=== PATIENT | male | born 1980 | race Caucasian/White ===

== ENCOUNTER → 2017-02-23 | Outpatient (CLI) | payer OTHER ==
[~2017-02-23] MED LIST: ACET-1311 PO; BENZ10GE38 TOP; IBUP-1050 PO
[2017-02-23 17:43] LABS: BASO % 1.2 %; BASO ABS # 0.06 K/uL (0-0.2); COMPLETE YES; EOS % 0.8 %; HEMATOCRIT 37.6 % (42-52); IG% 0.2 %; LYMPH % 32.4 %; LYMPH ABS # 1.59 K/uL (1.2-3.4); MEAN CELL VOLUME 96.2 fL (80-100); MEAN CORPUSCULAR HGB CONC 34.3 g/dl (32-36); MEAN PLATELET VOLUME 10.2 fL (7.4-10.4); NEUT % 56.4 %; PLATELET COUNT 178 K/uL (130-400); RED BLOOD COUNT 3.91 M/uL (4.7-6.1)
== END | disposition home or self-care (01) ==
LOC: C.LABBFT 13:42
PROVIDERS: ATTEND Physician Assistant Medical
DX: D64.9 Anemia, unspecified (principal)

== ENCOUNTER 2017-03-02 13:54 | Emergency (ER) | payer OTHER ==
[~2017-03-02] VITALS: Ht 182.9 cm; Wt 81.0 kg
[2017-03-02 14:06] VITALS: TEMP 36.9; Ht 182.9 cm; Wt 81.0 kg
--- NOTE | 2017-03-02 14:48 | DIAGNOSTIC IMAGING REPORT ---
L KNEE 3 VIEWS CLINICAL HISTORY: Left knee pain. COMPARISON: Left knee radiographs June 24, 2011. FINDINGS: Alignment of the left knee is anatomic. There is no fracture or joint effusion. No osseous lesion is present. Joint spaces are preserved. IMPRESSION: No acute fracture or joint effusion of the left knee. Electronically signed by: Neeraj Murray M.D. 03/02/2017 2:47 PM Dictated Date/Time: 03/02/2017 2:46 PM
--- NOTE | 2017-03-02 15:07 | EMERGENCY ROOM VISIT NOTE ---
ED Visit Note First contact with patient: 14:09 Chief Complaint: Left Knee Injury History of Present Illness: This patient is a 36-year-old male who presents to the Emergency Department, ambulatory, for evaluation of their left Knee Injury. Patient states that he was walking upstairs approximately 5 days ago, when he kicked his leg outward, and believes he may have hyperextended his knee. The patient states he immediately began experiencing pain and difficulty with ambulation. He does have a history of a torn meniscus of the right knee, and states the pain he is experiencing now is similar to that. They report sharp, intermittent pain which she describes as "excruciating" and hot, worse with ambulation. He describes the pain as "under the kneecap", and states it is throughout the entire knee, worse on the lateral and medial aspects. The patient states with movement, he notices some popping and snapping in the joint. The joint has not locked. The patient is able to fully extend and flex the knee, but states when he attempts to stand from a squatting position, it is more difficult now than normal. The patient has intermittently been taking Tylenol for pain, but has not been taking any NSAIDs. They deny any numbness or tingling into the distal extremity including the toes. They deny any pain extending into the affected foot or leg. Patient reports no previous fractures or surgeries of the affected knee. Patient rates his current discomfort as a 9/ 10. Patient denies any associated ligament instability, swelling, redness, or other discoloration, or laceration or bleeding. ROS: A complete 10 point review of systems was reviewed with the patient with pertinent positives and negatives as per history of present illness. All else were negative. Medications: None Allergies: None PMH: None SHx: The patient lives locally with family. 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 Physical Exam: Vital Signs: Reviewed Nurse's notes, vital signs stable. GENERAL: This is a 36- year-old white male, no acute distress, but appears in pain, well-developed, well-nourished. MENTAL STATUS: Alert, oriented to person place and time, and cooperative. MUSCULOSKELETAL: The left knee is not swollen. There is no ecchymosis. There is no joint effusion present. The patient is tender in the anterior and medial aspects of the knee on palpation. There is no joint line tenderness. The patella does appropriately subluxate. Range of motion is full. Strength of the quads and hamstrings is 5/5. Renetta's is negative. Stephan's and Anterior Drawer tests are negative. There is no laxity with varus and valgus stressing. The foot and toes are warm and well-perfused. Dorsalis pedis pulse 2+. Sensation to pain and light touch is intact. Capillary refill less than 2 seconds. IMAGING: L KNEE 3 VIEWS CLINICAL HISTORY: Left knee pain. COMPARISON: Left knee radiographs June 24, 2011. FINDINGS: Alignment of the left knee is anatomic. There is no fracture or joint effusion. No osseous lesion is present. Joint spaces are preserved. IMPRESSION: No acute fracture or joint effusion of the left knee. Electronically signed by: Neeraj Murray M.D. 03/02/2017 2:47 PM Dictated Date/Time: 03/02/2017 2:46 PM ED Course: Patient was seen and evaluated by myself. X-rays were obtained of the affected knee. Imaging results as above. Images were discussed and reviewed with the patient who acknowledges understanding. Patient was provided a knee immobilizer and Crutches for their comfort. Patient was given instructions for OTC pain control at home. Patient educated on worrisome symptoms for return visit to the emergency department. Patient is to follow-up with his orthopedic surgeon for his complaint for further evaluation at their convenience. Patient discharged to home in good condition. Blood Pressure Screening: Patient was found to have a slightly elevated blood pressure due to circumstances. I do not believe that the patient requires hypertension monitoring. I attest that I have personally reviewed the patient's current medication list. DIFFERENTIAL DIAGNOSIS: Sprain, strain, contusion, fracture, meniscus injury, tendon tear, malignancy, and others Impression: Left Knee sprain Current/Historical Medications No Active Prescriptions or Reported Meds Allergies Coded Allergies: BEE STING (Verified Allergy, Unknown, n/v,dizziness, 03/02/17) Vital Signs Date Time Temp Pulse Resp B/P (MAP) Pulse Ox O2 Delivery O2 Flow Rate FiO2 03/02/17 15:12 81 16 138/86 98 03/02/17 14:06 36.9 75 18 148/101 96 Departure Information Impression Primary Impression: Sprain of knee Dispostion Home / Self-Care Condition GOOD Prescriptions No Active Prescriptions or Reported Meds Referrals No Doctor, Assigned (PCP) [facility] Patient Instructions ED Immobilizer Knee, Amarilys [facility] Additional Instructions You have been treated in the Emergency Department for Knee Pain. For pain control, you can use the following [id number] medicines (if >12 yo): Ibuprofen(Motrin, Advil) may be used for fever or pain. Use 600mg every six hours as needed. Take with food. Avoid using more than 2400mg in a 24 hour period. Do not use 2400mg per day for more than three consecutive days without physician direction. Prolonged inappropriate use can lead to stomach upset or ulcers. (AND/OR) Acetaminophen(Tylenol) may be used for fever or pain. Use 1000mg every six hours as needed. Avoid using more than 3000mg in a 24 hour period. *You can alternate these medications every 3-4 hours as needed for increased pain relief. If this is a recent injury (<24 hrs), ice can be applied to the area of pain for the first 3 days to help decrease pain and inflammation. Ice massages can be performed by freezing water in a paper cup, peeling back the cup to expose the ice and then massaging over the affected area. You have been provided the number for an Orthopaedic Surgeon. You should call this number as soon as possible to establish a follow-up visit from today's Emergency Department visit. Keep the knee brace in place until cleared by Orthopedics. Use the crutches you have been provided to keep ALL weight off of the knee until weight bearing is tolerable. Return to the Emergency Department if your current symptoms worsen despite treatment course outlined above. Problem Qualifiers Primary Impression: Sprain of knee Encounter type: initial encounter Involved ligament of knee: unspecified ligament Laterality: left Qualified Codes: S83.92XA - Sprain of unspecified site of left knee, initial encounter
[2017-03-02 15:12] VITALS: BP 138/86; PULSE 81; O2SAT 98
== END 2017-03-02 15:14 | disposition home or self-care (01) ==
LOC: C.EDB 13:56 → C.EDD 15:14
DX: S83.92XA Sprain of unspecified site of left knee, initial encounter (principal); X58.XXXA Exposure to other specified factors, initial encounter

== ENCOUNTER 2019-10-26 15:04 | Inpatient (IN) ==
[2019-10-26] MEDS ORDERED: MAGNESIUM SULFATE / D5W 1 GM/100 ML BAG IV STA (15:40)
--- NOTE | 2019-10-26 15:58 | XRay Report ---
SINGLE VIEW CHEST CLINICAL HISTORY: Atypical chest pain. FINDINGS: 2 AP, portable, upright chest radiographs are compared to study dated 06/10/2006. Correlatio n is made with abdominal CT dated 01/29/2014. The examination is degraded by portable technique and p atient rotation. The heart appears enlarged. The pulmonary vasculature is noncongested. There is mild bibasilar scarring/atelectasis. No airspace consolidation or large pleural effusion is identified. N o pneumothorax is seen. The bony thorax is grossly intact. IMPRESSION: 1. The heart appears enlarged, and this represents a change from prior examinations. This is nonspeci fic and could be seen in the setting of pericardial effusion. This could be further assessed with ech ocardiography if clinically warranted. 2. No airspace consolidation or large pleural effusion is identified. ACT 112: Negative or not required by law. Electronically signed by: Danilo Morel M.D. 10/26/2019 3:57 PM
[2019-10-26 15:59] LABS: Basophils # (auto) 0.06 K/uL (0-0.2); Basophils % (auto) 0.9 %; Eosinophils # (auto) 0.05 K/uL (0-0.5); Eosinophils % (auto) 0.7 %; Hematocrit (blood only) 42.4 % (42-52); Hemoglobin 14.4 g/dL (14.0-18.0); Immature Granulocytes # (auto) 0.01 K/uL (0.00-0.02); Immature Granulocytes % (auto) 0.1 %; Lymphocytes # (auto) 1.26 K/uL (1.2-3.4); Lymphocytes % (auto) 18.2 %; Mean Corpuscular Hemoglobin 33.3 pg (25-34); Mean Corpuscular Volume 97.9 fL (80-100); Monocytes # (auto) 0.44 K/uL (0.11-0.59); Monocytes % (auto) 6.4 %; Neutrophils % (auto) 73.7 %; Platelet Count 174 K/uL (130-400); RDW Coefficient of Variation 13.3 % (11.5-14.5); Red Blood Count 4.33 M/uL (4.7-6.1); White Blood Count 6.92 K/uL (4.8-10.8)
[2019-10-26 16:12] LABS: INR 1.1 (0.9-1.1); Partial Thromboplastin Ratio 0.9; Partial Thromboplastin Time 26.5 Seconds (21.0-31.0); Prothrombin Time 11.7 Seconds (9.0-12.0)
[2019-10-26 16:16] LABS: BUN Creatinine Ratio 9.3 (10-20); Calcium 9.5 mg/dl (8.5-10.1); Creatinine Clr Calc Pharmacy 107.3 ml/min; Est GFR (African American) 93.7; Est GFR (Non-African American) 80.9; Potassium 3.7 mmol/L (3.5-5.1)
[2019-10-26 16:22] LABS: Albumin Globulin Ratio 1.2 (0.9-2); Creatine Kinase MB 1.8 ng/ml (0.5-3.6); Globulin 3.5 gm/dl (2.5-4.0); Total Protein 7.5 gm/dl (6.4-8.2); Troponin I 0.02 ng/ml (0-0.045)
[2019-10-26] MEDS ORDERED: LORazepam 1 MG/2 ML VIAL IV STA (16:24)
[2019-10-26] MEDS ORDERED: cloNIDine HCL 0.3 MG/24 HR TRANSDERM SYS TD STA (16:24)
[2019-10-26] MEDS ORDERED: MULTI-VITAMIN INFUSION 10 ML, THIAMINE HCL 100 MG, FOLIC ACID 1 MG in SODIUM CHLORIDE 0... IV ONE (16:24)
[2019-10-26] MEDS ORDERED: FUROSEMIDE 40 MG/4 ML VIAL IV STA (16:55)
[2019-10-26 17:52] LABS: Lyme Ab IgM w/WB Rflx Negative (Negative)
[2019-10-26 17:53] LABS: Lyme Ab IgG w/WB Rflx Negative (Negative)
--- NOTE | 2019-10-26 18:09 | History & Physical Report ---
Date of Service October 26, 2019 Assessment & Plan (1) Dilated cardiomyopathy: Pk Espitia is a 38 year old man with a past medical history of tobacco abuse and alcoholism who presents today with a new diagnosis of acute decompensated CHF CHF Symptoms have been developing and progressing over the last several months Echo showing EF 15-20% global hypokinesis, Most likely secondary to alcoholic cardiomyopathy, but patient does have risk factors for ischemic disease Starting patient on entresto, spironolactone and lasix Vital signs stable at present on room air, slightly tachypneic and using accessory muscles with wheeze will hopefully improve with diuresis Starting entresto and spironolactone Will give lasix 40 mg BID Troponin detectable but not elevated will trend q6h Given banana bag in ED will treat with thiamine and folate plus multivitamin daily Cardiology consulted, Dr. Beebe who performed echo and gave 40 mg IV lasix in ED. Other causes possible, ischemic (will trend troponin), Tick borne illness labs pending Alcoholism Large volume of alcohol consumed on a daily basis Discussed with patient the likely melissa of his CHF and that he will need to abstain from alcohol effective immediately He says he has had severe withdrawal in the past but no seizure He is feeling slightly tremulous at present last drink last night Will treat with gabapentin protocol and ativan prn for withdrawal, will need to monitor closely History of injection opiate drug use, tells me he is no longer using but we will check urine drug screen to confirm Elevated Liver enzymes Possibly secondary to alcoholic liver injury Will order RUQ u/s to further evaluate INR and albumin normal so appears to still be functioning adequately DVT PPx: Lovenox F/E/N: Low sodium diet 1500 ml fluid restriction Dispo: Admit to PCU for close monitoring strict I's and O's and daily weights. Full Code (2) Atypical chest pain: (3) Acute systolic (congestive) heart failure: (4) Alcohol abuse: (5) Left bundle branch block: (6) Asthma: History of Present Illness Chief Complaint: Shortness of breath Primary Care Provider: Helder Hampton MD Pk Espitia is a 38 year old man with a past medical history of asthma, abscess from very brief period of IV heroin use, tobacco abuse and alcoholism. He has had about two months of progressive shortness of breath with exertional chest heaviness, and chest pain with exertion. He has also noticed some orthopnea and when he goes to lie down flat he feels quite short of breath and wheezes. He has had pain typically with exertion lasting only briefly about 10- 12 times per day. He has never had episodes like this in the past, initially thought it was ashtma and was using albuterol inhaler, but he has never had much in the way of asthma symptoms despite the diagnosis and does not use any inhalers normally. He went to his PCP's office for shortness of breath who prescribed azithromycin, steroids and albuterol. This was ineffective and on second presentation an ECG was obtained showing new LBB and he was sent to ED. In ED was found to be wheezing though oxygenating well on room air, he was hypertensive and vitals otherwise normal. Labwork significant for an elevated BNP of 4748 and an elvated AST ALT at 61 and 80 respectively. chest xr showing Stat echo was peformed at bedside in the ED and showed a new cardiomegaly and no acute pulmonary edema, a stat echo was performed bedside in ED showing a severely dilated left ventricle with severely reduced systolic function EF estimated at 15-20% with global hypokinesis. Mild to moderate mitral regurgitation, mild pulmonary hypertension. Cardiology evaluated patient in ED and gave 40 mg IV lasix. Lyme anaplasma, erlichiosis all pending. Patient lives with girlfriend and children, they have all been well recently. 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 Patient has been abusing alcohol for quite some time, drinking about 18 ounces of rum daily and sometimes as much as 36 ounces in a day. Has had bad withdrawal symptoms in the past but no seizures. Last drink was last night, feeling somewhat tremulous now. Smokes cigarettes 40+ pack year smoking history. Full code Allergies Allergy/AdvReac Type Severity Reaction Status Date / Time bee venom protein (honey bee) Allergy Unknown Nause,vomiting Verified 10/26/19 16:02 and dizziness Home Medications Home Medications Medication Instructions Recorded Confirmed Type albuterol sulfate [Ventolin HFA] 2 puffs INH Q6H PRN 10/26/19 10/26/19 History escitalopram oxalate 20 mg tablet 20 mg PO DAILY #30 tab 10/26/19 10/26/19 Rx Past Med/Surg History Medical History Abdominal pain Asthma Bee sting allergy Neck muscle spasm Polysubstance abuse Surgical History History of ankle surgery Family History Father Alcohol abuse Mother Suicide and self-inflicted injury by firearm Social History Smoking Status: Current every day smoker Tobacco Type: Cigarettes Age Started Using Tobacco: 11; Cigarettes Per Day: 20; Do You Dip or Chew Tobacco: Yes; Tobacco Cessation Education Requested by Patient: No Hx Alcohol Use: Yes Alcohol type: hard liquor Hx Substance Use: No Preferred Language: Peruvian Communication Ability: Effective Road Commissioner Required: No Beliefs That Will Affect Care: None Current Living Situation: Spouse and Family current occupational status: employed current occupation: [employer] Other Information That Helps Us Care for You: No Feels Safe at Home: Yes Safety Concerns: Feels Safe At This Time Review of Systems Constitutional: + fatigue and + weight gain; no fever and no chills Eyes: no problem reported Ear, Nose, Mouth, Throat: as per Subjective / HPI Respiratory: + cough, + dyspnea, + dyspnea on exertion, + pain on inspiration (Occasionally) and + wheezing Cardiovascular: + chest pain (as above), + chest pain at rest (occasionally), + chest pain with activity, + dyspnea, + dyspnea on exertion, + orthopnea, + paroxysmal nocturnal dyspnea and + edema; no radiating jaw, neck or arm pain, no syncope and no calf pain Gastrointestinal: + diarrhea/loose stools and + blood in stools (Once several months ago); no abdominal pain, no nausea and no vomiting Genitourinary: no dysuria and no hematuria Physical Exam Constitutional: well nourished and + obese; no acute distress and no altered mental status Eyes: PERRL, conjunctivae normal, anicteric sclerae ENMT: external ear and nose normal, oropharynx normal Respiratory: + uses accessory muscles and + cough; + abnormal respiratory effort Auscultation: + wheezes tachypneic Cardiovascular: Rate/Rhythm: regular rate and regular rhythm Heart Sounds: + murmur (Soft systolic murmur best heard at PMI); no gallop and no cardiac rub Vessels: + JVD Gastrointestinal (Abdomen): Inspection/Auscultation: + abdomen distended Percussion/Palpation: abdomen soft and + ascites; abdomen nontender Skin: no rashes, warm and dry Results & Data Results & Data ([facility]) Vital Signs (Past 12 Hours) Vital Signs Temp Pulse Pulse Resp BP BP Pulse Ox 10/26/19 17:44 103 H 20 161/113 H 100 10/26/19 17:11 94 H 18 150/106 H 99 10/26/19 15:43 99 10/26/19 15:13 37.1 C 101 H 20 160/113 H 98 Supervising Physician Co-Signing Physician Notes Attending Attestation & Admission Note: Pt seen/examined, chart reviewed, admission care plan d/w resident Dr Marco A Aggarwal. I agree w/ the mckinney components of his admission documentation. 38yo male with h/o tobacco dependence and alcoholism presents with 2-month h/o worsening dyspnea, wheezing, orthopnea, weight gain, and chest tightness w/ exertion. Pt thought it was asthma and had been using an albuterol inhaler without relief of symptoms. Recent antibiotic course was unhelpful. Presented today to the ER - LBBB found on EKG. STAT echo obtained in ER - EF <20% with global hypokinesis. Seen by cardiology - given IV lasix. I saw patient post- lasix and he reports voiding at least 1500cc of urine since the lasix was given. PMH, PSH, allergies, meds, sochx, famhx - reviewed vitals - O2 requirement, tachy, BP elevated gen - NAD neck - JVD to the jaw mouth - MMM heart - RR, borderline tachy, s1, s2, +s3 lungs - diffuse end-exp wheezes b/l; bibasilar rales abd - protuberant, BS+, +hepatojugular reflex ext - <1+ edema b/l labs - reviewed EKG - NSR, LBBB cxr - cardiomegaly A/P: 1. acute severe systolic CHF 2. LBBB 3. tobacco dependence 4. alcoholism 5. transaminitis - etoh vs passive congestion from CHF 6. h/o brief use of IV drugs years ago IV lasix now and in AM; may need BID lasix entresto start beta anoop next 48 hours nicoderm if desired alcohol withdrawal protocol including gabapentin & ativan prn thiamine, folate supplementation MVI supplementatoin lovenox DVT proph ultimately will need cath to r/o CAD as cause of severe systolic CHF if not ischemic - alcohol vs thiamine deficiency vs h/o IV drugs (Cocaine, etc) vs idiopathic vs other appreciate cardiology consultation Jayden Damon MD Resident Activity Tracking Resident Involvement: Resident Care Provided Care Provided: Adult Hospital Medicine
[2019-10-26] MEDS ORDERED: POTASSIUM CHLORIDE 20 MEQ TABCR PO STA (19:56)
[2019-10-26] MEDS ORDERED: ONDANSETRON INJ 2 MG/ML 2 ML VIAL IV PRN (19:56)
[2019-10-26] MEDS ORDERED: POLYETHYLENE (MIRALAX) 17 GM PACK PO PRN (19:56)
[2019-10-26] MEDS ORDERED: LORazepam 1 MG/2 ML VIAL IV PRN (19:56)
[2019-10-26] MEDS ORDERED: LORazepam 1 MG TAB PO PRN (19:56)
[2019-10-26] MEDS ORDERED: ALUMINUM/MAGNESIUM SUSP 30 ML UDC PO PRN (19:56)
[2019-10-26] MEDS ORDERED: GABAPENTIN 1200MG ALCOHOL WITHDRAWAL LOAD PO STA (19:56)
[2019-10-26] MEDS ORDERED: THIAMINE HCL 200 MG in SYRINGE 9 ML IV SCH (19:56)
--- NOTE | 2019-10-26 20:09 | XCELERA ---
[id number]
--- NOTE | 2019-10-26 20:16 | Emergency Department Note ---
History of Present Illness General Chief complaint: Abnormal Labs/Diagnostic Testing Stated complaint: SENT BY DR ARIZMENDI ABNORMAL Time Seen by Provider: 10/26/19 15:33 Source: patient, RN notes reviewed and old records reviewed Mode of arrival: ambulatory Limitations: no limitations History of Present Illness Provider complaint: chest pain, sob Onset (ago): month(s) 2 Location: chest Radiation: back Severity: mild Pain Consistency: + intermittent and + now resolved Maximum Pain Intensity: 3 Current Pain Intensity: 3 Quality: + stabbing Relieved By: + immobilization Exacerbated By: + movement Associated symptoms: + chest pain, + cough, + diaphoresis and + shortness of breath; no fever/chills, no headaches and no nausea/vomiting Treatments prior to arrival: other (Prednisone, azithromycin) This is a 38-year-old male who presents emergency department complaining of shortness of breath. The patient was placed on prednisone as well as a Z-Danie approximately 2 weeks ago with no improvement in his symptoms. He is complaining of chest pain as well as extreme shortness of breath anytime he exerts himself. He reports he went to his primary care physician's office who did an EKG today and sent the patient to the emergency department. Home Medications Home Medications Medication Instructions Recorded Confirmed Type albuterol sulfate [Ventolin HFA] 2 puffs INH Q6H PRN 10/26/19 10/26/19 History escitalopram oxalate 20 mg tablet 20 mg PO DAILY #30 tab 10/26/19 10/26/19 Rx Allergies Allergy/AdvReac Type Severity Reaction Status Date / Time bee venom protein (honey bee) Allergy Unknown Nause,vomiting Verified 10/26/19 16:02 and dizziness Past Med/Surg History Medical History Abdominal pain Asthma Bee sting allergy Neck muscle spasm Polysubstance abuse Surgical History History of ankle surgery Family History Father Alcohol abuse Mother Suicide and self-inflicted injury by firearm Social History Smoking Status: Current every day smoker Tobacco Type: Cigarettes Age Started Using Tobacco: 11; Cigarettes Per Day: 20; Hx Alcohol Use: Yes Alcohol type: hard liquor Hx Substance Use: No Preferred Language: Italian Communication Ability: Effective 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 Health Services Required: No Beliefs That Will Affect Care: None Current Living Situation: Spouse and Family current occupational status: employed current occupation: [employer] Feels Safe at Home: Yes Review of Systems A total of 10 systems reviewed and were otherwise negative Physical Exam Vital Signs Vital Signs - 24 hr 10/26/19 15:13 10/26/19 15:43 10/26/19 17:11 Temperature 37.1 C Temperature Source Oral Pulse Rate 101 H Pulse Rate [Apical] 94 H Respiratory Rate 20 18 Blood Pressure 160/113 H Blood Pressure [Right Arm] 150/106 H Blood Pressure Mean 128 Blood Pressure Mean [Right Arm] 120 Pulse Oximetry 98 99 99 Oxygen Delivery Method Room Air Room Air Room Air Oxygen Flow Rate Sepsis Recent Fever Within 48 Hours No Sepsis New/Unexplained Change in Mental Status No Sepsis Action Taken by Nursing No Action Required 10/26/19 17:44 Temperature Temperature Source Pulse Rate Pulse Rate [Apical] 103 H Respiratory Rate 20 Blood Pressure Blood Pressure [Right Arm] 161/113 H Blood Pressure Mean Blood Pressure Mean [Right Arm] 129 Pulse Oximetry 100 Oxygen Delivery Method Nasal Cannula Oxygen Flow Rate 2 Sepsis Recent Fever Within 48 Hours Sepsis New/Unexplained Change in Mental Status Sepsis Action Taken by Nursing VITAL SIGNS - Vital signs and nursing notes were reviewed. GENERAL - 38-year-old male appearing stated age who is in no acute distress. Communicates well with provider and answers questions appropriately. SKIN - Without rashes. HEAD - NC/AT. EYES - PERRL with EOMI bilaterally. Sclera anicteric. Palpebral conjunctiva pink and moist with no injection noted. EARS - No deformities of external structures noted on gross examination bilaterally. No pain elicited with palpation of the tragus bilaterally. External auditory canals without discharge or otorrhea. Tympanic membranes pearly urias without retraction or bulging. No fluid or purulent material visualized behind the TM. Handle of malleus, umbo, cone of light, pars tensa/flaccid all easily visualized. NOSE - Midline and without cyanosis. No epistaxis or purulent drainage noted. Septum midline without deviation or septal hematoma noted. MOUTH/OROPHARYNX - Without perioral cyanosis. Buccal mucosa pink and moist and without leukoplakia. Tongue midline with equal elevation of palate bilaterally. No tonsillar hypertrophy, erythema, or exudates noted. dentition noted. NECK - Neck with FROM. Supple to palpation. lymphadenopathy noted. No nuchal rigidity. LUNGS - Chest wall symmetric without accessory muscle use, intercostals ret ractions, or central cyanosis. Normal vesicular breath sounds CTA B/L. No wheezes, rales, or rhonchi appreciated. CARDIAC - RRR with S1/S2. No murmur, rubs, or gallops appreciated. ABDOMEN - Abdominal contour without pulsations or visible masses. BS normoactive all four quadrants. No tenderness, palpable masses, hepatosplenomegaly, or ascites noted. EXTREMITIES - No clubbing or peripheral cyanosis. No pretibial edema present. +3/5 radial, posterior tibial, and dorsalis pedis pulses palpated throughout. +5/5 strength noted in UE/LE bilaterally. NEUROLOGIC - Cranial nerves II through XII grossly intact. Sensory intact to light touch throughout. Patellar reflexes +2/4. PSYCH - A&Ox3 and cooperates fully with examiner. Pt is very pleasant and interacts well with examiner. Course Administered Medications Aspirin (Aspirin 81 Mg Ectab) 81 mg PO QAM [facility] Stop: 11/26/19 08:59 Last Admin: 10/27/19 08:41 Dose: 81 mg Documented by: [id number] Enoxaparin Sodium (Enoxaparin Inj 40 Mg/0.4 Ml Syr) 40 mg SQ QPM [facility] Stop: 11/25/19 22:59 Last Admin: 10/26/19 23:16 Dose: Not Given Documented by: [id number] Lorazepam (Ativan) 1 mg in 2 mls @ 2 mls/min IV ONE PRN; Protocol PRN Reason: EtoH Withdrawal AWSS 6-10 Stop: 11/25/19 19:55 Last Admin: 10/26/19 21:29 Dose: 2 mls/min Documented by: [id number] Folic Acid 1 mg/ Syringe 10 mls @ 5 mls/min IV QAM [facility] Stop: 11/25/19 20:59 Last Admin: 10/27/19 08:42 Dose: 5 mls/min Documented by: [id number] Admin: 10/26/19 21:30 Dose: 5 mls/min Documented by: [id number] Thiamine HCl 200 mg/ Sodium (Chloride) 52 mls @ 210 mls/hr IV QAM [facility] Stop: 11/25/19 20:59 Last Infusion: 10/27/19 09:27 Dose: 0 mls/hr Documented by: [id number] Admin: 10/27/19 08:44 Dose: 210 mls/hr Documented by: [id number] Infusion: 10/26/19 23:15 Dose: 0 mls/hr Documented by: [id number] Admin: 10/26/19 21:29 Dose: 210 mls/hr Documented by: [id number] Metoprolol Succinate (Metoprolol Succ 25mg Ext Rel Tab) 25 mg PO QAM DAISY Stop: 11/26/19 13:44 Last Admin: 10/27/19 14:54 Dose: 25 mg Documented by: [id number] Sacubitril/Valsartan (Sacubitril-Valsartan 24-26 Mg Tab) 1 tab PO BID DAISY Stop: 11/25/19 20:59 Last Admin: 10/27/19 08:41 Dose: 1 tab Documented by: [id number] Admin: 10/26/19 23:39 Dose: 1 tab Documented by: [id number] Spironolactone (Spironolactone 25 Mg Tab) 25 mg PO QAM DAISY Stop: 11/26/19 08:59 Last Admin: 10/27/19 08:41 Dose: 25 mg Documented by: [id number] Discontinued Medications Clonidine HCl (Clonidine Hcl 0.3 Mg/24 Hr Transderm Sys) 1 patch TD NOW STA Stop: 10/26/19 16:25 Last Admin: 10/26/19 17:08 Dose: 1 patch Documented by: [id number] Furosemide (Furosemide 40 Mg/4 Ml Vial) 40 mg IV NOW STA Stop: 10/26/19 16:56 Last Admin: 10/26/19 17:31 Dose: 40 mg Documented by: [id number] Gabapentin (Gabapentin 600 Mg Tab) 1,200 mg PO NOW ONE Stop: 10/26/19 21:01 Last Admin: 10/26/19 21:30 Dose: 1,200 mg Documented by: [id number] Gabapentin (Gabapentin 600 Mg Tab) 600 mg PO Q6H DAISY Stop: 10/27/19 12:01 Last Admin: 10/27/19 11:40 Dose: 600 mg Documented by: [id number] Admin: 10/27/19 05:10 Dose: 600 mg Documented by: [id number] Magnesium Sulfate/Dextrose (Magnesium Sulfate / D5w) 1 gm in 100 mls @ 100 mls/hr IV NOW STA Stop: 10/26/19 16:39 Last Infusion: 10/26/19 17:04 Dose: 0 mls/hr Documented by: [id number] Admin: 10/26/19 16:04 Dose: 100 mls/hr Documented by: [id number] Lorazepam (Ativan) 1 mg in 2 mls @ 2 mls/min IV NOW STA Stop: 10/26/19 16:25 Last Admin: 10/26/19 17:08 Dose: 2 mls/min Documented by: [id number] Multivitamins 10 ml/ Thiamine HCl 100 mg/ Folic Acid 1 mg/Sodium Chloride 1,011.2 mls @ 1,011.2 mls/hr IV .Q1H ONE Stop: 10/26/19 17:23 Last Infusion: 10/26/19 18:08 Dose: 0 mls/hr Documented by: [id number] Admin: 10/26/19 17:08 Dose: 1,011.2 mls/hr Documented by: [id number] Furosemide 40 mg/ Syringe 4 mls @ 4 mls/min IV DAILY DAISY Stop: 11/26/19 08:59 Last Admin: 10/27/19 08:41 Dose: 4 mls/min Documented by: [id number] Miscellaneous (Remove Clonidine Patch) 1 ea N/A CQWK DAISY Stop: 11/25/19 16:29 Last Admin: 10/26/19 17:43 Dose: 1 ea Documented by: [id number] Potassium Chloride (Potassium Chloride 20 Meq Tabcr) 40 meq PO NOW STA Stop: 10/26/19 19:57 Last Admin: 10/26/19 23:39 Dose: 40 meq Documented by: [id number] Medical Decision Making Differential Diagnosis Cardiac ischemia, aortic dissection, pulmonary embolism, pneumothorax, pneumonia, pericarditis, myocarditis, esophageal rupture, GERD, cholecystitis, pancreatitis, musculoskeletal, as well as other pathologies. Medical Records Attestation: I reviewed the patient's medical records. Home Medications Current Medication List: was personally reviewed by me Laboratory Data Attestation: I reviewed the patient's lab results. Result diagrams: 10/26/19 15:44 10/27/19 06:41 Lab Results 10/26/19 10/26/19 10/26/19 Range/Units 15:44 15:44 15:44 WBC 6.92 (4.8-10.8) K/uL RBC 4.33 L (4.7-6.1) M/uL Hgb 14.4 (14.0-18.0) g/dL Hct 42.4 (42-52) % MCV 97.9 (80-100) fL MCH 33.3 (25-34) pg MCHC 34.0 (32-36) g/dL RDW Std Deviation 48.0 H (36.4-46.3) fL RDW Coeff of Connor 13.3 (11.5-14.5) % Plt Count 174 (130-400) K/uL MPV 10.0 (7.4-10.4) fL Immature Gran % (Auto) 0.1 % Neut % (Auto) 73.7 % Lymph % (Auto) 18.2 % Clarke % (Auto) 6.4 % Eos % (Auto) 0.7 % Baso % (Auto) 0.9 % Neut # (Auto) 5.10 (1.4-6.5) K/uL Lymph # (Auto) 1.26 (1.2-3.4) K/uL Clarke # (Auto) 0.44 (0.11-0.59) K/uL Eos # (Auto) 0.05 (0-0.5) K/uL Baso # (Auto) 0.06 (0-0.2) K/uL Immature Gran # (Auto) 0.01 (0.00-0.02) K/uL PT 11.7 (9.0-12.0) Seconds INR 1.1 (0.9-1.1) APTT 26.5 (21.0-31.0) Seconds PTT Ratio 0.9 Sodium 138 (136-145) mmol/L Potassium 3.7 (3.5-5.1) mmol/L Chloride 103 (98-107) mmol/L Carbon Dioxide 29 (21-32) mmol/L Anion Gap 6.0 (3-11) BUN 11 (7-18) mg/dl Creatinine 1.13 (0.6-1.4) mg/dl Est Cr Clr Drug Dosing 107.3 ml/min Est GFR ( Amer) 93.7 Est GFR (Non-Af Amer) 80.9 BUN/Creatinine Ratio 9.3 L (10-20) Glucose 92 (70-99) mg/dl Calcium 9.5 (8.5-10.1) mg/dl Total Bilirubin 1.0 (0.2-1) mg/dl AST 61 H (15-37) U/L ALT 80 H (12-78) U/L Alkaline Phosphatase 78 (45-117) U/L Total Creatine Kinase 154 (39-308) U/L CK-MB (CK-2) 1.8 (0.5-3.6) ng/ml CK/CKMB % Calc 1.2 (0-3.0) POC Troponin I (0-0.045) ng/ml Troponin I 0.020 (0-0.045) ng/ml NT-Pro-B Natriuret Pep 4748 H (0-450) pg/ml Total Protein 7.5 (6.4-8.2) gm/dl Albumin 4.0 (3.4-5.0) gm/dl Globulin 3.5 (2.5-4.0) gm/dl Albumin/Globulin Ratio 1.2 (0.9-2) Lipase 136 (73-393) U/L Ethyl Alcohol mg/dL (0-3) mg/dl Anaplasma Smear Lyme Disease IgG Ab (Negative) Lyme Disease IgM Ab (Negative) 10/26/19 10/26/19 10/26/19 Range/Units 15:44 15:46 15:50 WBC (4.8-10.8) K/uL RBC (4.7-6.1) M/uL Hgb (14.0-18.0) g/dL Hct (42-52) % MCV (80-100) fL MCH (25-34) pg MCHC (32-36) g/dL RDW Std Deviation (36.4-46.3) fL RDW Coeff of Connor (11.5-14.5) % Plt Count (130-400) K/uL MPV (7.4-10.4) fL Immature Gran % (Auto) % Neut % (Auto) % Lymph % (Auto) % Clarke % (Auto) % Eos % (Auto) % Baso % (Auto) % Neut # (Auto) (1.4-6.5) K/uL Lymph # (Auto) (1.2-3.4) K/uL Clarke # (Auto) (0.11-0.59) K/uL Eos # (Auto) (0-0.5) K/uL Baso # (Auto) (0-0.2) K/uL Immature Gran # (Auto) (0.00-0.02) K/uL PT (9.0-12.0) Seconds INR (0.9-1.1) APTT (21.0-31.0) Seconds PTT Ratio Sodium (136-145) mmol/L Potassium (3.5-5.1) mmol/L Chloride (98-107) mmol/L Carbon Dioxide (21-32) mmol/L Anion Gap (3-11) BUN (7-18) mg/dl Creatinine (0.6-1.4) mg/dl Est Cr Clr Drug Dosing ml/min Est GFR ( Amer) Est GFR (Non-Af Amer) BUN/Creatinine Ratio (10-20) Glucose (70-99) mg/dl Calcium (8.5-10.1) mg/dl Total Bilirubin (0.2-1) mg/dl AST (15-37) U/L ALT (12-78) U/L Alkaline Phosphatase (45-117) U/L Total Creatine Kinase (39-308) U/L CK-MB (CK-2) (0.5-3.6) ng/ml CK/CKMB % Calc (0-3.0) POC Troponin I 0.04 (0-0.045) ng/ml Troponin I (0-0.045) ng/ml NT-Pro-B Natriuret Pep (0-450) pg/ml Total Protein (6.4-8.2) gm/dl Albumin (3.4-5.0) gm/dl Globulin (2.5-4.0) gm/dl Albumin/Globulin Ratio (0.9-2) Lipase (73-393) U/L Ethyl Alcohol mg/dL (0-3) mg/dl Anaplasma Smear See Comment Lyme Disease IgG Ab Negative (Negative) Lyme Disease IgM Ab Negative (Negative) 10/26/19 Range/Units 17:10 WBC (4.8-10.8) K/uL RBC (4.7-6.1) M/uL Hgb (14.0-18.0) g/dL Hct (42-52) % MCV (80-100) fL MCH (25-34) pg MCHC (32-36) g/dL RDW Std Deviation (36.4-46.3) fL RDW Coeff of Connor (11.5-14.5) % Plt Count (130-400) K/uL MPV (7.4-10.4) fL Immature Gran % (Auto) % Neut % (Auto) % Lymph % (Auto) % Clarke % (Auto) % Eos % (Auto) % Baso % (Auto) % Neut # (Auto) (1.4-6.5) K/uL Lymph # (Auto) (1.2-3.4) K/uL Clarke # (Auto) (0.11-0.59) K/uL Eos # (Auto) (0-0.5) K/uL Baso # (Auto) (0-0.2) K/uL Immature Gran # (Auto) (0.00-0.02) K/uL PT (9.0-12.0) Seconds INR (0.9-1.1) APTT (21.0-31.0) Seconds PTT Ratio Sodium (136-145) mmol/L Potassium (3.5-5.1) mmol/L Chloride (98-107) mmol/L Carbon Dioxide (21-32) mmol/L Anion Gap (3-11) BUN (7-18) mg/dl Creatinine (0.6-1.4) mg/dl Est Cr Clr Drug Dosing ml/min Est GFR ( Amer) Est GFR (Non-Af Amer) BUN/Creatinine Ratio (10-20) Glucose (70-99) mg/dl Calcium (8.5-10.1) mg/dl Total Bilirubin (0.2-1) mg/dl AST (15-37) U/L ALT (12-78) U/L Alkaline Phosphatase (45-117) U/L Total Creatine Kinase (39-308) U/L CK-MB (CK-2) (0.5-3.6) ng/ml CK/CKMB % Calc (0-3.0) POC Troponin I (0-0.045) ng/ml Troponin I (0-0.045) ng/ml NT-Pro-B Natriuret Pep (0-450) pg/ml Total Protein (6.4-8.2) gm/dl Albumin (3.4-5.0) gm/dl Globulin (2.5-4.0) gm/dl Albumin/Globulin Ratio (0.9-2) Lipase (73-393) U/L Ethyl Alcohol mg/dL < 3.0 (0-3) mg/dl Anaplasma Smear Lyme Disease IgG Ab (Negative) Lyme Disease IgM Ab (Negative) Imaging Data Radiologist's Impression: [place], [place] [phone] XRay Report Patient: ERASTO FRAUSTO Date: 10/26/19 MR#: [id number]: [address] [facility] Acct ID:[id number]: Date: 1980[facility] Zip: [place] [address] Age: 38Location: ED Sex: M Room/Bed: Att Phy:Diagnosis: SENT BY DR ARIZMENDI ABNORMAL Marizol Phy: Helder Hampton MDService Date: 10/26/19 Fam Phy:Interpreting Phy: Danilo Morel MD Admit Phy: Ordering Phy: Bhanu De Souza MD cc: ~ SINGLE VIEW CHEST CLINICAL HISTORY: Atypical chest pain. FINDINGS: 2 AP, portable, upright chest radiographs are compared to study dated 06/10/2006. Correlation is made with abdominal CT dated 01/29/2014. The examination is degraded by portable technique and patient rotation. The heart appears enlarged. The pulmonary vasculature is noncongested. There is mild bibasilar scarring/atelectasis. No airspace consolidation or large pleural effusion is identified. No pneumothorax is seen. The bony thorax is grossly intact. IMPRESSION: 1. The heart appears enlarged, and this represents a change from prior examinations. This is nonspecific and could be seen in the setting of pericardial effusion. This could be further assessed with echocardiography if clinically warranted. 2. No airspace consolidation or large pleural effusion is identified. ACT 112: Negative or not required by law. Electronically signed by: Danilo Morel M.D. 10/26/2019 3:57 PM Dictated: 10/26/19 1554 Transcribed: 10/26/19 1554 ECG Data Attestation: I personally reviewed and interpreted this ECG as follows: Indication: + chest pain Rate (beats per minute): 102 Rhythm: + sinus tachycardia ECG Intervals/blocks: + Left bundle branch block ECG Rayle: + Left axis deviation ECG ST segments: no ST depression and no ST elevation Comparison ECG Date: from (2015) Change: the following changes noted (LBBB is new) MDM Narrative This is a 38-year-old male who presents emergency department with a new change in his EKG. Patient presents with a left bundle branch block as well as chest pain that has been ongoing for the past 2 months. He is extremely short of breath when he walks. I did discuss the case with the testing and regulating chief on-call who was kind enough to see the patient at the bedside. The patient was given Lasix here in the emergency department started on a banana bag as well as clonidine and Ativan. Repeat examination revealed improvement the patient's symptoms. I did discuss the case with the hospitalist service who did agree to admit the patient. Patient is in agreement with the treatment plan. Patient was seen and evaluated as above in room B7. Review was performed of nursing notes and vital signs. I did review pertinent previous visits and patient history. After obtaining a thorough history and physical examination the above work up was performed. While in the department, I personally reevaluated the patient several times and each time the patient was found to be resting comfortably. The patient was educated upon management, educated upon todays findings/results, educated upon importance of follow up from today's visit, educated upon symptoms in which to return, had questions answered prior to discharge, verbalized understanding, and was discharged home in good condition. An order was placed for continuous cardiac monitoring. The monitor shows a rate of 100 with Normal Sinus rhythm. The patient was evaluated during the global COVID-19 pandemic, and that diagnosis was suspected/considered upon their initial presentation. Their e valuation, treatment and testing was consistent with current guidelines for patients who present with complaints or symptoms that may be related to COVID- 19. Impression & Plan Left bundle branch block, Acute systolic (congestive) heart failure, Dilated cardiomyopathy Discharge Plan Visit Data Chief Complaint: Abnormal Labs/Diagnostic Testing Stated Complaint: SENT BY DR ARIZMENDI ABNORMAL ED Provider: Bhanu De Souza Discharge Problem: Left bundle branch block, Acute systolic (congestive) heart failure, Dilated cardiomyopathy Patient Disposition: Admitted As Inpatient Discharge Instructions Interventions: ED Discharge Assessment Last Done: 10/26/19 19:34
--- NOTE | 2019-10-26 20:24 | Cardiology Consultation ---
Date of Consultation October 26, 2019 Assessment & Plan (1) Acute systolic (congestive) heart failure: (2) Dilated cardiomyopathy: (3) Left bundle branch block: (4) Atypical chest pain: (5) Alcohol abuse: ASSESSMENT/PLAN: 1. Acute systolic CHF: He appears hypervolemic. Recommend Lasix 40 mg IV x1 now. Would attempt to diurese at least 1 L negative today. We discussed importance of a low-sodium diet, less than 2000 mg daily. Daily weights and strict I&Os. 2. Dilated cardiomyopathy: Could be due to alcohol abuse. Cannot exclude ischemic etiology given agent tobacco abuse. We discussed the importance of alcohol cessation. Would recommend beta-anoop in the form of carvedilol or metoprolol succinate, but would first diurese as he is decompensated from a heart failure standpoint. He was hypertensive in the emergency department and if remains so, consider low-dose Entresto, which would also be indicated. We discussed cardiac catheterization, including risks and benefits. Would consider pursuing when he clinically improves from a heart failure standpoint and is able to lay flat. 3. Left bundle-branch block: Plan as above. New diagnosis. 4. Atypical chest pain: Chest pain is not consistent with angina and may improve with diuresis. 5. Alcohol abuse: We discussed the fact that this quite possibly is the etiology of his cardiomyopathy. Recommended cessation from alcohol use. 6. Tobacco abuse: Recommend that he stop smoking. 7. Disposition: Cardiology will continue to follow. Patient care discussed with Dr. Damon (admitting hospitalist) and Dr. De Souza (ED). Highly complex medical issues. Thank you for allowing me to participate in the care of your patient. Please call for any other questions or concerns. Sincerely, Geoff Beebe M.D. History of Present Illness Reason for Consultation: Chest pain, SOB, LBBB Requesting Physician: Dr. De Souza Attending Physician: Jayden Damon History of Present Illness Mr. Espitia is a pleasant 38-year-old gentleman with a history significant for alcoholism and tobacco abuse who presented to the emergency department on 10/26/2019 with chest pain, shortness of breath, and newly diagnosed left bundle-branch block from his PCPs office. He states that he has been an alcoholic for quite some time. He had been consuming 0.5 gal of rum per day but went to rehab earlier this year and now consumes approximately 18 oz of rum per day. For the past 2 months, he has noted intermittent chest tightness, wheezing, and shortness of breath. Dyspnea with exertion is to the point where he can walk 10-15 feet in sometimes has to stop to catch his breath. His symptoms have even worsened more so this past week. He has gained approximately 40 lb over the past few months. He has been experiencing paroxysmal nocturnal dyspnea, as well as orthopnea progressively worsening over the past 2 months. In regards to his chest pain, it is a left or right-sided chest pain at different times. It occurs intermittently over the past 2 months and described as a sharp pain lasting only a few seconds most of the time. He notices it more so with inspiration and sometimes while laying supine. It is not exertional. He denies any recent illness, fever, chills, edema. He admits that he consumes food high in sodium content. He denies syncope, near-syncope, or palpitations. Because of his symptoms, he went to his PCPs office and had an ECG which demonstrated left bundle-branch block, prompting emergency department visit. While in the emergency department, he was chest pain-free. When called by Dr. De Souza, echocardiogram was recommended. He had bright red blood per rectum several months ago when consuming alcohol heavily but it quickly resolved. He did not undergo colonoscopy and did not require blood transfusion. He has not had any further bleeding. He states that he has asthma and has been blaming his symptoms on asthma. After further questioning, he has not required inhaler throughout his life, without any significant issues from asthma. He has been using his children's inhaler for these more recent symptoms, without improvement in his shortness of breath. Review of systems: As above. Review of systems otherwise negative/ unremarkable. Family history: His mother and father were alcoholics. No known premature CAD or sudden cardiac . Social history: He has smoked 1-1.5 packs per day since the age of 11. considers himself an alcoholic consuming up to 0.5 gal of rum per day but currently 18 oz per day. He lives at home with his girlfriend and 2 youngest children. He has 4 children in total. 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 He was unaccompanied in the ER during our visit. Allergies Allergy/AdvReac Type Severity Reaction Status Date / Time bee venom protein (honey bee) Allergy Unknown Nause,vomiting Verified 10/26/19 16:02 and dizziness Home Medications Home Medications Medication Instructions Recorded Confirmed Type albuterol sulfate [Ventolin HFA] 2 puffs INH Q6H PRN 10/26/19 10/26/19 History escitalopram oxalate 20 mg tablet 20 mg PO DAILY #30 tab 10/26/19 10/26/19 Rx Patient History Medical History Abdominal pain Asthma Bee sting allergy Neck muscle spasm Polysubstance abuse Surgical History History of ankle surgery Family History Father Alcohol abuse Mother Suicide and self-inflicted injury by firearm Social History Smoking Status: Current every day smoker Tobacco Type: Cigarettes Age Started Using Tobacco: 11; Cigarettes Per Day: 20; Hx Alcohol Use: Yes ( heavy alcohol consumption) Hx Substance Use: Yes Prescribed Medications: Marijuana Non-Prescribed Medications Comment: history of intravenous drug use in multiple other substances Preferred Language: Mohawk Communication Ability: Effective current occupational status: employed current occupation: [employer] Feels Safe at Home: Yes Physical Exam Physical Exam: Gen.: No acute distress. Alert and oriented. HEENT: Anicteric sclera. Neck: JVD to the mandible sitting at approximately 60. No bruits. Normal carotid upstrokes bilaterally. Cardiac: PMI was nonpalpable. No ventricular heave. Regular but tachycardic in the low 100s. Normal S1-S2. + S3. 2/6 systolic murmur at the apex. No rubs. Pulmonary: Bilateral expiratory wheezing. Abdomen: Soft, nontender, nondistended, with normoactive bowel sounds. No bruits noted. Extremities: 2+ radial pulses bilaterally. 2+ posterior tibialis pulses bilaterally. 1+ bilateral lower extremity edema. No cyanosis. Psychiatric: Affect appears appropriate. Results & Data ([facility]) Vital Signs (Past 12 Hours) Vital Signs Temp Pulse Pulse Resp BP BP Pulse Ox 10/26/19 19:00 91 H 23 129/97 100 08/13/20 17:44 103 H 20 161/113 H 100 10/26/19 17:11 94 H 18 150/106 H 99 10/26/19 15:43 99 10/26/19 15:13 37.1 C 101 H 20 160/113 H 98 Laboratory Results Laboratory Results - last 24 hr 10/26/19 10/26/19 10/26/19 15:44 15:44 15:44 WBC 6.92 RBC 4.33 L Hgb 14.4 Hct 42.4 MCV 97.9 MCH 33.3 MCHC 34.0 RDW Std Deviation 48.0 H RDW Coeff of Connor 13.3 Plt Count 174 MPV 10.0 Immature Gran % (Auto) 0.1 Neut % (Auto) 73.7 Lymph % (Auto) 18.2 [place] % (Auto) 6.4 Eos % (Auto) 0.7 Baso % (Auto) 0.9 Neut # (Auto) 5.10 Lymph # (Auto) 1.26 [place] # (Auto) 0.44 Eos # (Auto) 0.05 Baso # (Auto) 0.06 Immature Gran # (Auto) 0.01 PT 11.7 INR 1.1 APTT 26.5 PTT Ratio 0.9 Sodium 138 Potassium 3.7 Chloride 103 Carbon Dioxide 29 Anion Gap 6.0 BUN 11 Creatinine 1.13 Est Cr Clr Drug Dosing 107.3 Est GFR ( Amer) 93.7 Est GFR (Non-Af Amer) 80.9 BUN/Creatinine Ratio 9.3 L Glucose 92 Calcium 9.5 Total Bilirubin 1.0 AST 61 H ALT 80 H Alkaline Phosphatase 78 Total Creatine Kinase 154 CK-MB (CK-2) 1.8 CK/CKMB % Calc 1.2 POC Troponin I Troponin I 0.020 NT-Pro-B Natriuret Pep 4748 H Total Protein 7.5 Albumin 4.0 Globulin 3.5 Albumin/Globulin Ratio 1.2 Lipase 136 Ethyl Alcohol mg/dL Anaplasma Smear A. phagocytophilum DNA Lyme Disease IgG Ab Lyme Disease IgM Ab E.chaffeensis DNA (PCR) 10/26/19 10/26/19 10/26/19 15:44 15:46 15:46 WBC RBC Hgb Hct MCV MCH MCHC RDW Std Deviation RDW Coeff of Connor Plt Count MPV Immature Gran % (Auto) Neut % (Auto) Lymph % (Auto) [place] % (Auto) Eos % (Auto) Baso % (Auto) Neut # (Auto) Lymph # (Auto) [place] # (Auto) Eos # (Auto) Baso # (Auto) Immature Gran # (Auto) PT INR APTT PTT Ratio Sodium Potassium Chloride Carbon Dioxide Anion Gap BUN Creatinine Est Cr Clr Drug Dosing Est GFR ( Amer) Est GFR (Non-Af Amer) BUN/Creatinine Ratio Glucose Calcium Total Bilirubin AST ALT Alkaline Phosphatase Total Creatine Kinase CK-MB (CK-2) CK/CKMB % Calc POC Troponin I Troponin I NT-Pro-B Natriuret Pep Total Protein Albumin Globulin Albumin/Globulin Ratio Lipase Ethyl Alcohol mg/dL Anaplasma Smear See Comment A. phagocytophilum DNA Pending Lyme Disease IgG Ab Negative Lyme Disease IgM Ab Negative E.chaffeensis DNA (PCR) Pending 10/26/19 10/26/19 15:50 17:10 WBC RBC Hgb Hct MCV MCH MCHC RDW Std Deviation RDW Coeff of Connor Plt Count MPV Immature Gran % (Auto) Neut % (Auto) Lymph % (Auto) [place] % (Auto) Eos % (Auto) Baso % (Auto) Neut # (Auto) Lymph # (Auto) [place] # (Auto) Eos # (Auto) Baso # (Auto) Immature Gran # (Auto) PT INR APTT PTT Ratio Sodium Potassium Chloride Carbon Dioxide Anion Gap BUN Creatinine Est Cr Clr Drug Dosing Est GFR ( Amer) Est GFR (Non-Af Amer) BUN/Creatinine Ratio Glucose Calcium Total Bilirubin AST ALT Alkaline Phosphatase Total Creatine Kinase CK-MB (CK-2) CK/CKMB % Calc POC Troponin I 0.04 Troponin I NT-Pro-B Natriuret Pep Total Protein Albumin Globulin Albumin/Globulin Ratio Lipase Ethyl Alcohol mg/dL < 3.0 Anaplasma Smear A. phagocytophilum DNA Lyme Disease IgG Ab Lyme Disease IgM Ab E.chaffeensis DNA (PCR) Diagnostic Findings Echo 10/26/2019: Severely dilated LV with severely reduced systolic function. EF 15-20%. Severe global hypokinesis. Septal motion consistent with bundle- branch block. Mild LVH. Mild to moderate MR. RVSP 45. ECG personally reviewed: ECG 10/26/2019: Sinus tachycardia 102 bpm. LBBB. Chest x-ray 10/26/2019: Cardiomegaly. Medications Administered Current Inpatient Medications Al Hydrox/Mg Hydrox/Simethicone (Aluminum/Magnesium Susp 30 Ml Udc) 15 ml PO Q4H PRN PRN Reason: Dyspepsia Stop: 11/25/19 19:55 Aspirin (Aspirin 81 Mg Ectab) 81 mg PO QAM DAISY Stop: 11/26/19 08:59 Enoxaparin Sodium (Enoxaparin Inj 40 Mg/0.4 Ml Syr) 40 mg SQ Q24H DAISY Stop: 11/25/19 19:55 Gabapentin (Gabapentin 1200mg Alcohol Withdrawal Load) 1 ea PO NOW STA; Protocol Stop: 10/26/19 19:57 Gabapentin (Gabapentin 600 Mg Tab) 1,200 mg PO NOW ONE Stop: 10/26/19 19:57 Gabapentin (Gabapentin 600 Mg Tab) 600 mg PO Q6H DAISY Stop: 10/27/19 06:16 Gabapentin (Gabapentin 600 Mg Tab) 600 mg PO Q8H DAISY Stop: 10/28/19 06:16 Gabapentin (Gabapentin 600 Mg Tab) 600 mg PO Q24H DAISY Stop: 10/30/19 06:16 Gabapentin (Gabapentin 600 Mg Tab) 600 mg PO Q12H DAISY Stop: 10/29/19 06:16 Lorazepam (Ativan) 1 mg in 2 mls @ 2 mls/min IV ONE PRN; Protocol PRN Reason: EtoH Withdrawal AWSS 6-10 Stop: 11/25/19 19:55 Furosemide 40 mg/ Syringe 4 mls @ 4 mls/min IV DAILY DAISY Stop: 11/26/19 08:59 Thiamine HCl 200 mg/ Syringe 11 mls @ 2 mls/min IV QAM DAISY Stop: 11/25/19 19:55 Folic Acid 1 mg/ Syringe 10 mls @ 5 mls/min IV QAM DAISY Stop: 11/25/19 19:55 Lorazepam (Lorazepam 1 Mg Tab) 1 mg PO ONE PRN; Protocol PRN Reason: EtoH Withdrawal AWSS 6-10 Miscellaneous (Remove Clonidine Patch) 1 ea N/A CQWK DAISY Stop: 11/25/19 16:29 Last Admin: 10/26/19 17:43 Dose: 1 ea Documented by: Miscellaneous (Check Clonidine Patch Placement) 1 ea N/A QS DAISY Stop: 11/26/19 00:00 Ondansetron HCl (Ondansetron Inj 2 Mg/Ml 2 Ml Vial) 4 mg IV Q6H PRN PRN Reason: Nausea Stop: 11/25/19 19:55 Polyethylene Glycol (Polyethylene (Miralax) 17 Gm Pack) 17 gm PO DAILY PRN PRN Reason: Constipation Stop: 11/25/19 19:55 Potassium Chloride (Potassium Chloride 20 Meq Tabcr) 40 meq PO NOW STA Stop: 10/26/19 19:57 Sacubitril/Valsartan (Sacubitril-Valsartan 24-26 Mg Tab) 1 tab PO BID DAISY Stop: 11/25/19 20:59 Spironolactone (Spironolactone 25 Mg Tab) 25 mg PO QAM DAISY Stop: 11/26/19 08:59 PG Care Time/CCT Total # of Minutes Spent Total Time Spent with Patient: Total time spent is greater than 50% in coordination of care (as documented) at patient's floor/unit and/or counseling patient: Coding Level of Care Code 22662 Inpt Consult Level 5 Diagnoses Acute systolic (congestive) heart failure I50.21 Dilated cardiomyopathy I42.0 Left bundle branch block I44.7 Atypical chest pain R07.89 Alcohol abuse F10.10
[2019-10-26] MEDS ORDERED: GABAPENTIN 600 MG TAB PO ONE (21:00)
[2019-10-26 21:02] LABS: Magnesium 2.4 mg/dl (1.8-2.4); Thyroid Stimulating Hormone 1.73 uIu/ml (0.300-4.500)
[2019-10-26] MEDS: THIAMINE HCL 200 MG in SODIUM CHLORIDE 0.9% 50 ML IV SCH (21:29)
[2019-10-26] MEDS: FOLIC ACID 1 MG in SYRINGE 9.8 ML IV SCH (21:30)
--- NOTE | 2019-10-26 22:57 | Billing Data ---
Date of Service October 26, 2019 Coding Level of Care Code 68196 Initial Inpt Care Lvl 3
[2019-10-26] MEDS: ENOXAPARIN INJ 40 MG/0.4 ML SYR SQ SCH (23:16)
[2019-10-26] MEDS: SACUBITRIL-VALSARTAN 24-26 MG TAB PO SCH (23:39)
[2019-10-27] MEDS ORDERED: CHECK CLONIDINE PATCH PLACEMENT SCH
[2019-10-27] MEDS: GABAPENTIN 600 MG TAB PO SCH ×3 (05:10→22:30)
[2019-10-27 05:59] LABS: Estimated Average Glucose 111 mg/dl; Hemoglobin A1C 5.5 % (4.5-5.6)
--- NOTE | 2019-10-27 06:40 | Electrocardiogram Report ---
Test Reason : Blood Pressure : / mmHG Vent. Rate : 102 BPM Atrial Rate : 102 BPM P-R Int : 176 ms QRS Dur : 174 ms QT Int : 398 ms P-R-T Axes : 069 -51 114 degrees QTc Int : 518 ms Sinus tachycardia Possible Left atrial enlargement Left axis deviation Left bundle branch block Abnormal ECG When compared with ECG of 21-JUL-2005 13:50, Vent. rate has increased BY 38 BPM Left bundle branch block is now Present Confirmed by Trevor Beebe ([id number]) on 10/27/2019 6:39:48 AM Referred By: Confirmed By:Trevor Beebe
[2019-10-27 07:28] LABS: BUN Creatinine Ratio 8.5 (10-20); Calcium 9.2 mg/dl (8.5-10.1); Creatinine Clr Calc Pharmacy 117.5 ml/min; Est GFR (African American) 107.3; Est GFR (Non-African American) 92.6; Potassium 3.4 mmol/L (3.5-5.1)
--- NOTE | 2019-10-27 07:47 | XRay Report ---
XR chest 1V portable CLINICAL HISTORY: CHF dyspnea COMPARISON STUDY: 10/26/2019 FINDINGS: Moderate stable cardiomegaly. The lungs are clear. Diaphragms are smooth. IMPRESSION: 1. Moderate stable cardiomegaly. Otherwise negative study. ACT 112: Negative or not required by law. The above report was generated using voice recognition software. It may contain grammatical, syntax or spelling errors. Electronically signed by: Cornelius Galaviz M.D. 10/27/2019 7:45 AM
[2019-10-27] MEDS: SACUBITRIL-VALSARTAN 24-26 MG TAB PO SCH ×2 (08:41→22:29)
[2019-10-27] MEDS: SPIRONOLACTONE 25 MG TAB PO SCH (08:41)
[2019-10-27] MEDS: ASPIRIN 81 MG ECTAB PO SCH (08:41)
[2019-10-27] MEDS: FOLIC ACID 1 MG in SYRINGE 9.8 ML IV SCH (08:42)
[2019-10-27] MEDS: THIAMINE HCL 200 MG in SODIUM CHLORIDE 0.9% 50 ML IV SCH (08:44)
[2019-10-27] MEDS ORDERED: FUROSEMIDE 40 MG in SYRINGE 0 ML IV SCH (09:00)
--- NOTE | 2019-10-27 12:35 | Hospitalist Progress Note ---
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 Patient relates significant anxiety and previously been on Lexapro therapy. Will reinstitute Lexapro therapy at 10 mg a day consider psychiatric follow-up as an outpatient Full Code (2) Atypical chest pain: (3) Acute systolic (congestive) heart failure: (4) Alcohol abuse: (5) Left bundle branch block: (6) Asthma: Admission and Anticipated Discharge Date Admission Date: October 26, 2019 Subjective Patient says he feels much better when he came in he is much less short of breath. He is having some emotional distress and anxiety as he has had i ncreased family terminal for last few years. He also recently is completed inpatient rehab stay but once again is relapse mostly due to the COVID isolation. The patient has no further complaints or problems he does wish to have his Lexapro restarted. Likely encourage him to follow with psychological counseling as an outpatient. Because of concerns of chest pain and marked cardiomyopathy there are plans for cardiac catheterization during his hospital stay Review of Systems Review of Systems: Mild distress and fatigue no headache, blurry or double vision no speech or swallowing issues Complains of mild vague chest pain with some sensation of pressure but no palpitations He has had resolution of his shortness of breath at rest but still with mild dyspnea on exertion. He has no, cough or wheezes no abdominal pain, nausea or vomiting, diarrhea or constipation no dysuria, hematuria or frequency no focal joint pain or swelling no back pain, CVA tenderness or radicular pain no bruising, bleeding or rashes no focal signs of weakness or numbness or altered sensation Is still complaining of the feelings of some anxiety Physical Exam Physical Exam: The patient appeared well nourished and normally developed. Vital signs as documented. Head exam is normocephalic atraumatic no scleral icterus Neck is without JVD, thyromegaly, or carotid bruits. Lungs are clear to auscultation, maybe slightly diminished at the bases Cardiac exam, Rhythm is regular.. No murmurs, rubs or gallops. Abdominal exam reveals normal bowel sounds, soft non tender, no masses Extremities are nonedematous and both pedal pulses are normal. Neurologic exam is alert and oriented, no focal loss of strength or sensation Skin is without bruises or rashes Psychologically is without concerns for anxiety or depression to observational assessment however patient states he is very anxious and depressed Results & Data Results & Data ([facility]) Vital Signs (Past 12 Hours) Vital Signs Temp Pulse Resp BP Pulse Ox 10/27/19 11:35 98.2 F 96 H 20 140/104 H 96 10/27/19 07:56 98.6 F 90 18 159/99 H 96 10/27/19 04:28 98.1 F 89 20 133/87 94 PG Care Time/CCT Total # of Minutes Spent Total Time Spent with Patient: Total time spent is greater than 50% in coordination of care (as documented) at patient's floor/unit and/or counseling patient: Coding Level of Care Code 37891 Subseq Hosp Care Lvl 3 Diagnoses Dilated cardiomyopathy I42.0 Atypical chest pain R07.89 Acute systolic (congestive) heart failure I50.21 Alcohol abuse F10.10 Left bundle branch block I44.7 Asthma J45.909
--- NOTE | 2019-10-27 13:18 | Cardiology Progress Note ---
Date of Service October 27, 2019 Assessment & Plan (1) Acute systolic (congestive) heart failure: (2) Dilated cardiomyopathy: (3) Left bundle branch block: (4) Atypical chest pain: (5) Alcohol abuse: ASSESSMENT/PLAN: 1. Acute systolic CHF: He is improving but remains hypervolemic. Continue Lasix 40 mg IV daily for now. Would try to attained 1-2 L negative today. Can re-dose Lasix if necessary. He is also on spironolactone. We discussed importance of a low-sodium diet, less than 2000 mg daily. Daily weights and strict I&Os. 2. Dilated cardiomyopathy: Could be due to alcohol abuse. Cannot exclude ischemic etiology given agent tobacco abuse. We discussed the importance of alcohol cessation. Will initiate low-dose beta-anoop today. Continue low- dose Entresto. He is agreeable to undergo cardiac catheterization. 3. Left bundle-branch block: Plan as above. New diagnosis. 4. Atypical chest pain: Chest pain is not consistent with angina. 5. Alcohol abuse: We discussed the fact that this quite possibly is the etiology of his cardiomyopathy. Recommended cessation from alcohol use. 6. Tobacco abuse: Recommend that he stop smoking. 7. Disposition: Cardiology will continue to follow. Patient care discussed with Dr. Martinez of the primary hospitalist service. Admission and Anticipated Discharge Date Admission Date: October 26, 2019 Subjective His breathing has improved but is not yet back to baseline. He did not sleep completely supine. He denies syncope, near-syncope, palpitations, or significant edema. He continues to have intermittent pleuritic type chest discomfort or when he moves his upper body. No definite angina. Review of systems: As above. Physical Exam Physical Exam: Gen.: No acute distress. Alert and oriented. HEENT: Anicteric sclera. Neck: JVD and hepatic jugular reflux noted. Cardiac: PMI was nonpalpable. No ventricular heave. Regular. Normal S1-S2. + S3. 2/6 systolic murmur at the apex. No rubs. Pulmonary: Bilateral expiratory wheezing, improved. Abdomen: Soft, nontender, nondistended, with normoactive bowel sounds. No bruits noted. Extremities: 2+ radial pulses bilaterally. 2+ posterior tibialis pulses bilaterally. Trace bilateral lower extremity edema. No cyanosis. Psychiatric: Affect appears appropriate. Results & Data ([facility]) Vital Signs (Past 12 Hours) Vital Signs Temp Pulse Resp BP Pulse Ox 10/27/19 11:35 36.8 C 96 H 20 140/104 H 96 10/27/19 07:56 37.0 C 90 18 159/99 H 96 10/27/19 04:28 36.7 C 89 20 133/87 94 Intake & Output 10/25/19 10/26/19 10/27/19 10/28/19 06:59 06:59 06:59 06:59 Intake Total 2213.2 / 2213.2 Output Total 4352 / 4352 Balance -2138.8 / -2138.8 Weight 100.7 kg Laboratory Results Laboratory Results - last 24 hr 10/26/19 10/26/19 10/26/19 15:44 15:44 15:44 WBC 6.92 RBC 4.33 L Hgb 14.4 Hct 42.4 MCV 97.9 MCH 33.3 MCHC 34.0 RDW Std Deviation 48.0 H RDW Coeff of Connor 13.3 Plt Count 174 MPV 10.0 Immature Gran % (Auto) 0.1 Neut % (Auto) 73.7 Lymph % (Auto) 18.2 [place] % (Auto) 6.4 Eos % (Auto) 0.7 Baso % (Auto) 0.9 Neut # (Auto) 5.10 Lymph # (Auto) 1.26 [place] # (Auto) 0.44 Eos # (Auto) 0.05 Baso # (Auto) 0.06 Immature Gran # (Auto) 0.01 PT 11.7 INR 1.1 APTT 26.5 PTT Ratio 0.9 Sodium 138 Potassium 3.7 Chloride 103 Carbon Dioxide 29 Anion Gap 6.0 BUN 11 Creatinine 1.13 Est Cr Clr Drug Dosing 107.3 Est GFR ( Amer) 93.7 Est GFR (Non-Af Amer) 80.9 BUN/Creatinine Ratio 9.3 L Glucose 92 Estimat Average Glucose Hemoglobin A1c Calcium 9.5 Magnesium Total Bilirubin 1.0 AST 61 H ALT 80 H Alkaline Phosphatase 78 Total Creatine Kinase 154 CK-MB (CK-2) 1.8 CK/CKMB % Calc 1.2 POC Troponin I Troponin I 0.020 NT-Pro-B Natriuret Pep 4748 H Total Protein 7.5 Albumin 4.0 Globulin 3.5 Albumin/Globulin Ratio 1.2 Triglycerides Cholesterol LDL Cholesterol, Calc VLDL Cholesterol, Calc HDL Cholesterol Cholesterol/HDL Ratio Lipase 136 Vitamin B12 TSH Ethyl Alcohol mg/dL Anaplasma Smear A. phagocytophilum DNA Lyme Disease IgG Ab Lyme Disease IgM Ab E.chaffeensis DNA (PCR) 10/26/19 10/26/19 10/26/19 15:44 15:46 15:46 WBC RBC Hgb Hct MCV MCH MCHC RDW Std Deviation RDW Coeff of Connor Plt Count MPV Immature Gran % (Auto) Neut % (Auto) Lymph % (Auto) [place] % (Auto) Eos % (Auto) Baso % (Auto) Neut # (Auto) Lymph # (Auto) [place] # (Auto) Eos # (Auto) Baso # (Auto) Immature Gran # (Auto) PT INR APTT PTT Ratio Sodium Potassium Chloride Carbon Dioxide Anion Gap BUN Creatinine Est Cr Clr Drug Dosing Est GFR ( Amer) Est GFR (Non-Af Amer) BUN/Creatinine Ratio Glucose Estimat Average Glucose Hemoglobin A1c Calcium Magnesium Total Bilirubin AST ALT Alkaline Phosphatase Total Creatine Kinase CK-MB (CK-2) CK/CKMB % Calc POC Troponin I Troponin I NT-Pro-B Natriuret Pep Total Protein Albumin Globulin Albumin/Globulin Ratio Triglycerides Cholesterol LDL Cholesterol, Calc VLDL Cholesterol, Calc HDL Cholesterol Cholesterol/HDL Ratio Lipase Vitamin B12 TSH Ethyl Alcohol mg/dL Anaplasma Smear See Comment A. phagocytophilum DNA Pending Lyme Disease IgG Ab Negative Lyme Disease IgM Ab Negative E.chaffeensis DNA (PCR) Pending 10/26/19 10/26/19 10/26/19 15:50 17:10 20:15 WBC RBC Hgb Hct MCV MCH MCHC RDW Std Deviation RDW Coeff of Connor Plt Count MPV Immature Gran % (Auto) Neut % (Auto) Lymph % (Auto) [place] % (Auto) Eos % (Auto) Baso % (Auto) Neut # (Auto) Lymph # (Auto) [place] # (Auto) Eos # (Auto) Baso # (Auto) Immature Gran # (Auto) PT INR APTT PTT Ratio Sodium Potassium Chloride Carbon Dioxide Anion Gap BUN Creatinine Est Cr Clr Drug Dosing Est GFR ( Amer) Est GFR (Non-Af Amer) BUN/Creatinine Ratio Glucose Estimat Average Glucose 111 Hemoglobin A1c 5.5 Calcium Magnesium Total Bilirubin AST ALT Alkaline Phosphatase Total Creatine Kinase CK-MB (CK-2) CK/CKMB % Calc POC Troponin I 0.04 Troponin I NT-Pro-B Natriuret Pep Total Protein Albumin Globulin Albumin/Globulin Ratio Triglycerides Cholesterol LDL Cholesterol, Calc VLDL Cholesterol, Calc HDL Cholesterol Cholesterol/HDL Ratio Lipase Vitamin B12 TSH Ethyl Alcohol mg/dL < 3.0 Anaplasma Smear A. phagocytophilum DNA Lyme Disease IgG Ab Lyme Disease IgM Ab E.chaffeensis DNA (PCR) 10/26/19 10/26/19 10/26/19 20:15 20:15 21:34 WBC RBC Hgb Hct MCV MCH MCHC RDW Std Deviation RDW Coeff of Connor Plt Count MPV Immature Gran % (Auto) Neut % (Auto) Lymph % (Auto) [place] % (Auto) Eos % (Auto) Baso % (Auto) Neut # (Auto) Lymph # (Auto) [place] # (Auto) Eos # (Auto) Baso # (Auto) Immature Gran # (Auto) PT INR APTT PTT Ratio Sodium Potassium Chloride Carbon Dioxide Anion Gap BUN Creatinine Est Cr Clr Drug Dosing Est GFR ( Amer) Est GFR (Non-Af Amer) BUN/Creatinine Ratio Glucose Estimat Average Glucose Hemoglobin A1c Calcium Magnesium 2.4 Total Bilirubin AST ALT Alkaline Phosphatase Total Creatine Kinase CK-MB (CK-2) CK/CKMB % Calc POC Troponin I Troponin I < 0.015 NT-Pro-B Natriuret Pep Total Protein Albumin Globulin Albumin/Globulin Ratio Triglycerides 54 Cholesterol 210 H LDL Cholesterol, Calc 100 VLDL Cholesterol, Calc 11 HDL Cholesterol 99 Cholesterol/HDL Ratio 2 Lipase Vitamin B12 1098 H TSH 1.730 Ethyl Alcohol mg/dL Anaplasma Smear A. phagocytophilum DNA Lyme Disease IgG Ab Lyme Disease IgM Ab E.chaffeensis DNA (PCR) 10/27/19 06:41 WBC RBC Hgb Hct MCV MCH MCHC RDW Std Deviation RDW Coeff of Connor Plt Count MPV Immature Gran % (Auto) Neut % (Auto) Lymph % (Auto) [place] % (Auto) Eos % (Auto) Baso % (Auto) Neut # (Auto) Lymph # (Auto) [place] # (Auto) Eos # (Auto) Baso # (Auto) Immature Gran # (Auto) PT INR APTT PTT Ratio Sodium 138 Potassium 3.4 L Chloride 102 Carbon Dioxide 30 Anion Gap 6.0 BUN 9 Creatinine 1.01 Est Cr Clr Drug Dosing 117.5 Est GFR ( Amer) 107.3 Est GFR (Non-Af Amer) 92.6 BUN/Creatinine Ratio 8.5 L Glucose 91 Estimat Average Glucose Hemoglobin A1c Calcium 9.2 Magnesium Total Bilirubin AST ALT Alkaline Phosphatase Total Creatine Kinase CK-MB (CK-2) CK/CKMB % Calc POC Troponin I Troponin I NT-Pro-B Natriuret Pep Total Protein Albumin Globulin Albumin/Globulin Ratio Triglycerides Cholesterol LDL Cholesterol, Calc VLDL Cholesterol, Calc HDL Cholesterol Cholesterol/HDL Ratio Lipase Vitamin B12 TSH Ethyl Alcohol mg/dL Anaplasma Smear A. phagocytophilum DNA Lyme Disease IgG Ab Lyme Disease IgM Ab E.chaffeensis DNA (PCR) Diagnostic Findings telemetry personally reviewed: Sinus rhythm. No arrhythmia. Medications Administered Current Inpatient Medications Al Hydrox/Mg Hydrox/Simethicone (Aluminum/Magnesium Susp 30 Ml Udc) 15 ml PO Q4H PRN PRN Reason: Dyspepsia Stop: 11/25/19 19:55 Aspirin (Aspirin 81 Mg Ectab) 81 mg PO QAM DAISY Stop: 11/26/19 08:59 Last Admin: 10/27/19 08:41 Dose: 81 mg Documented by: Enoxaparin Sodium (Enoxaparin Inj 40 Mg/0.4 Ml Syr) 40 mg SQ QPM DAISY Stop: 11/25/19 22:59 Last Admin: 10/26/19 23:16 Dose: Not Given Documented by: Gabapentin (Gabapentin 600 Mg Tab) 600 mg PO Q8H DAISY Stop: 10/28/19 14:01 Gabapentin (Gabapentin 600 Mg Tab) 600 mg PO Q24H DAISY Stop: 10/30/19 12:01 Gabapentin (Gabapentin 600 Mg Tab) 600 mg PO Q12H DAISY Stop: 10/29/19 12:01 Lorazepam (Ativan) 1 mg in 2 mls @ 2 mls/min IV ONE PRN; Protocol PRN Reason: EtoH Withdrawal AWSS 6-10 Stop: 11/25/19 19:55 Last Admin: 10/26/19 21:29 Dose: 2 mls/min Documented by: Furosemide 40 mg/ Syringe 4 mls @ 4 mls/min IV DAILY DAISY Stop: 11/26/19 08:59 Last Admin: 10/27/19 08:41 Dose: 4 mls/min Documented by: Folic Acid 1 mg/ Syringe 10 mls @ 5 mls/min IV QAM DAISY Stop: 11/25/19 20:59 Last Admin: 10/27/19 08:42 Dose: 5 mls/min Documented by: Thiamine HCl 200 mg/ Sodium (Chloride) 52 mls @ 210 mls/hr IV QAM DAISY Stop: 11/25/19 20:59 Last Infusion: 10/27/19 09:27 Dose: Infused Documented by: Lorazepam (Lorazepam 1 Mg Tab) 1 mg PO ONE PRN; Protocol PRN Reason: EtoH Withdrawal AWSS 6-10 Ondansetron HCl (Ondansetron Inj 2 Mg/Ml 2 Ml Vial) 4 mg IV Q6H PRN PRN Reason: Nausea Stop: 11/25/19 19:55 Polyethylene Glycol (Polyethylene (Miralax) 17 Gm Pack) 17 gm PO DAILY PRN PRN Reason: Constipation Stop: 11/25/19 19:55 Sacubitril/Valsartan (Sacubitril-Valsartan 24-26 Mg Tab) 1 tab PO BID [facility] Stop: 11/25/19 20:59 Last Admin: 10/27/19 08:41 Dose: 1 tab Documented by: Spironolactone (Spironolactone 25 Mg Tab) 25 mg PO QAM [facility] Stop: 11/26/19 08:59 Last Admin: 10/27/19 08:41 Dose: 25 mg Documented by: PG Care Time/CCT Total # of Minutes Spent Total Time Spent with Patient: Total time spent is greater than 50% in coordination of care (as documented) at patient's floor/unit and/or counseling patient: Coding Level of Care Code 20417 Subseq Hosp Care Lvl 3 Diagnoses Acute systolic (congestive) heart failure I50.21 Dilated cardiomyopathy I42.0 Left bundle branch block I44.7 Atypical chest pain R07.89 Alcohol abuse F10.10
[2019-10-27] MEDS: METOPROLOL SUCC 25MG EXT REL TAB PO SCH (14:54)
[2019-10-27] MEDS ORDERED: MIDAZOLAM HCL 1 MG/ML 2ML VIAL ONE ×2 (15:08→15:49)
[2019-10-27] MEDS ORDERED: HEPARIN (PORCINE) 1000 UNIT/ML 10 ML (CATH LAB USE ONLY) ONE (15:08)
[2019-10-27] MEDS ORDERED: NiCARDipine HCL INJ 2.5 MG/ML 10 ML AMP ONE (15:08)
[2019-10-27] MEDS ORDERED: fentaNYL citrate 100 MCG/2 ML VIAL ONE (15:08)
[2019-10-27] MEDS ORDERED: NITROGLYCERIN/D5W 100MCG/ML 20ML SYR ONE (15:09)
--- NOTE | 2019-10-27 15:22 | Heart Failure Progress Note ---
Date of Service October 27, 2019 Assessment & Plan (1) Acute systolic (congestive) heart failure: (2) Alcohol abuse: (3) Left bundle branch block: (4) Dilated cardiomyopathy: Met with the patient at the bedside this afternoon. Discussed the nature of heart failure and the goals of the program. He is agreeable to participation. Cardiomyopathy likely secondary to alcoholism. Planning on cardiac cath today to rule out ischemia. Continue guideline based medications. Entresto and Spironolactone added by primary service. Metoprolol 25 mg initiated today by Dr. Beebe. Continue to monitor kidney function and electrolytes. Recommend continued diuresis- continue Lasix IV 40 mg daily. Aim for negative 1-2 L per day. He's negative 2 L so far with 10 lb weight loss if accurate. He estimates his dry weight to be 180-200 lb. We discussed daily standing weights. Recommend that he document his weights and bring them to his follow up appointments. Recommend low sodium diet, less than 2,000 mg daily. Discussed reasons to notify the heart failure program. Strict I&Os while in the hospital. Alcohol cessation strongly encouraged. Follow up with the heart failure program has been arranged for 11/03/19 at 900. Will continue to follow during hospitalization. Admission and Anticipated Discharge Date Admission Date: October 26, 2019 Subjective Mr. Espitia is a pleasant 38-year-old gentleman with a history significant for alcoholism, anxiety, and tobacco abuse who presented to the emergency department on 10/26/2019 with chest pain, shortness of breath, and newly diagnosed left bundle-branch block. He was found to have severe dilated cardiomyopathy (EF 15- 20%) and acute systolic CHF. He has been referred to the heart failure program by Dr. Beebe. Patient reports he's feeling improved today. He has minimal shortness of breath at this time. He has no lower extremity edema. He was evaluated by cardiology earlier today. Planning for cardiac catheterization today. He is tearful and anxious about the procedure. He continues to chew tobacco while hospitalized. Results & Data ([facility]) Vital Signs (Past 12 Hours) Vital Signs Temp Pulse Resp BP Pulse Ox 10/27/19 11:35 98.2 F 96 H 20 140/104 H 96 10/27/19 07:56 98.6 F 90 18 159/99 H 96 10/27/19 04:28 98.1 F 89 20 133/87 94 PG Care Time/CCT Total # of Minutes Spent Total Time Spent with Patient: Total time spent is greater than 50% in coordination of care (as documented) at patient's floor/unit and/or counseling patient: Coding Level of Care Code None Diagnoses Acute systolic (congestive) heart failure I50.21 Alcohol abuse F10.10 Left bundle branch block I44.7 Dilated cardiomyopathy I42.0
--- NOTE | 2019-10-27 15:37 | Pre Anesthesia Assessment ---
Date of Service October 27, 2019 Pre Sedation Assessment Vital Signs Temp Pulse Pulse Pulse Resp BP Pulse Ox 10/27/19 11:35 36.8 C 96 H 20 140/104 H 96 10/27/19 07:56 37.0 C 90 18 159/99 H 96 10/27/19 04:28 36.7 C 89 20 133/87 94 10/26/19 23:43 36.8 C 86 16 122/79 96 10/26/19 20:03 37.0 C 97 H 22 142/103 H 99 10/26/19 19:56 113 H 10/26/19 19:00 91 H 23 129/97 100 10/26/19 17:44 103 H 20 161/113 H 100 10/26/19 17:11 94 H 18 150/106 H 99 10/26/19 15:43 99 Cardiovascular + regular rhythm Respiratory + wheezes Pre-Sedation Airway Assessment Smoking Status: Current every day smoker Short, Thick Neck: No Thyromental Distance: > or= 3.5 Finger Breadths Oral Cavity: + WNL Mallampati Class: II ASA: ASA3 NPO Status Date of Last Intake of Fluids: 10/27/19 Time of Last Intake of Fluids: 11:00 Date of Last Intake of Solid Food: 10/27/19 Time of Last Intake of Solid Foods: 11:00 Last Intake of Solids Comment: pt with Ef 15-20% and intermittent CP in HF Procedure Planning Contraindications for Sedation: none Current Medications Reviewed: Yes Notes The planned sedation has been discussed with the patient. Informed Consent was obtained. I have identified the patient, determined the appropriateness of mamie tion and have assessed the patient immediately prior to the procedure. All medicine(s) and interventions are by my order.
--- NOTE | 2019-10-27 16:34 | Cardiac Catheterization ---
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 Cardiac Status Clinical evaluation leading to the procedure CAD Presenation: No Sxs, No angina Anginal Classification: No Symptoms Heart Failure: NYHA Class: CCS IV Cardiogenic Shock within 24 Hours: No Cardiac Arrest within 24 Hours: No Imaging Studies Past 6 Months: Yes Stress Studies Past 6 Months: No Standard Exercise Test: No Stress Echocardiogram: No Stress Testing w/SPECT MPI: No Cardiac CTA: No Coronary Anatomy Dominant: Co-Dominant Left Ventricular Angiography EF (%): n/a Diagnostic Physicians Name: Trevor Beebe MD Status: Elective Closure Device Percutaneous Entry Location: Radial Closure Device: Radial Band Recommendations: Management Recommendatons (as above) Cardiac Cath Procedure Full Procedure Date October 27, 2019 Pre-Procedure Diagnosis Pre-Procedure Diagnosis: CHF and Cardiomyopathy AUC Score AUC Score: 7 Post-Procedure Diagnosis Post-Procedure Diagnosis: Normal Coronary Arteries Procedure(s) Performed Procedure(s) Performed: Coronary Angiography, Left Heart Cath and Right Heart Cath Field Liability Generalist Trevor Beebe MD Wood Carving Lathe Operator(s) Sina Noe Estimated Blood Loss Estimated Blood Loss: < 30 ml Medication(s) Medication(s): Fentanyl, Heparin, Lidocaine 1%, Nicardipine and Versed Summary of Findings Procedures: 1. Left heart catheterization 2. Coronary angiography 3. Right heart catheterization 4. Moderate sedation Coronary angiography: 1. Left main coronary artery: LMCA is large in caliber. No significant CAD. 2. Left anterior descending: LAD is a large caliber vessel that extends to the apex. Medium caliber D1. Large caliber D2. No significant CAD. 3. Circumflex: The circumflex is large and codominant. Medium caliber high OM1. Large caliber OM 2 with lateral branches. Circumflex PDA. No significant CAD within the circumflex system. 4. Right coronary artery: The RCA is large and codominant. There is no significant CAD within the RCA or PDA. Left heart catheterization: 1. Left ventriculography was not performed. 2. No significant aortic stenosis. 3. Mildly elevated LVEDP; 15 mmHg. Right heart catheterization: 1. Pulmonary capillary wedge pressure: V wave 12 with a mean of 10 mmHg. 2. PA pressure 26/12 with a mean of 17 mmHg. 3. RV pressure 25/1 with RVEDP of 2 mmHg. 4. RA pressure: A wave 8; V wave 6; mean 4 mmHg. 5. Cardiac output via thermodilution was 3.93 L/min, with a cardiac index of 1.78 L/min/m. 6. PVR 1.78 Wood units. Moderate sedation: 1. Sedation start time: 3:40 PM 2. Sedation end time: 4:17 PM Impression: 1. No coronary artery disease. 2. Left-sided filling pressures are normal to mildly elevated. 3. No pulmonary artery hypertension. 4. Reduced cardiac output. 5. No aortic stenosis. 6. Nonischemic cardiomyopathy. Plan: 1. Optimize heart failure medical therapy. 2. Alcohol cessation. Hemodynamics Rest Ao:: 101/82 Final Ao: 111/90 LV: 106/7/15 Recommendations Recommendations: Management Recommendatons (as above) Specimens Specimens: None Radiation Exposure (mGy) 714 mGy. Fluoro time 5 min Contrast (mls) 55 ml Procedural Complication(s) None Disposition PCU I attest to the content of the Intraoperative Record and any orders documented therein. Any exceptions are noted below. [facility] Card Cath Procedure Codes Cardiac Catheterization Procedure 1: Cardiovascular Cath Procedures: 74458 Coronaries & LHC (+/-LV) & RHC Moderate Sedation Procedure 1: Sedation/Anesthesia: 50078 Mod Sedation by the same physician;Init15 Min Child Age 5 & Up Procedure 2: Sedation/Anesthesia: 78944 Mod Sedation by the same physician; Ea [id number] Minutes PG Care Time/CCT Total # of Minutes Spent Total Time Spent with Patient: Total time spent is greater than 50% in coordination of care (as documented) at patient's floor/unit and/or counseling patient:
--- NOTE | 2019-10-27 16:35 | Post Anesthesia Assessment ---
Date of Service October 27, 2019 Post Sedation Assessment Vital Signs Temp Pulse Pulse Pulse Resp BP Pulse Ox 10/27/19 11:35 36.8 C 96 H 20 140/104 H 96 10/27/19 07:56 37.0 C 90 18 159/99 H 96 10/27/19 04:28 36.7 C 89 20 133/87 94 10/26/19 23:43 36.8 C 86 16 122/79 96 10/26/19 20:03 37.0 C 97 H 22 142/103 H 99 10/26/19 19:56 113 H 10/26/19 19:00 91 H 23 129/97 100 10/26/19 17:44 103 H 20 161/113 H 100 10/26/19 17:11 94 H 18 150/106 H 99 Recovery Score Activity: Moves 4 extremities Respiration: Deep Breath/Cough Circulation: +/-20% PreAnes Value Consciousness: Fully Awake Oxygen Saturation: > 92% On Room Air Discharge Sedation Level of Care: Fast Track Phase II Post Sedation Plan On clinical assessment, the patient appears to have tolerated the sedation without complications. Patient is recovering as anticipated. Patient will continue to be monitored by nursing and may be discharged when sedation discharge criteria are met per below protocol. Upon Completions of procedure up to 15 minutes continue every 5 minute vital signs and the P.A.R. score; then discharge to a Phase I or Fast Track to Phase II per the following guidelines: * Discharge Patient to appropriate Phase II area if PAR is 8 or greater or return to pre- procedure baseline. The post - procedure orders will be as directed. * If PAR score is less than 8 or not return to pre-procedure baseline then patient will follow Phase I monitoring till PAR is reached for Phase II. The Phase I may be done in procedure room or may call to secure a Phase I area. * If naloxone or flumazenil are used for reversal, hold in Phase I for continued monitoring from when last reversal dose was given for a minimum of 60 minutes or longer pending the nurse and/or physician discretion of patient condition before discharge to Phase II. Please call the Sedation Physician to re-evaluate and complete post-note for discharge to Phase II area. Do NOT discharge from procedure sedation or Phase 1 until post- sedation evaluation note is complete by procedure /sedation MD Sedation Discharge Instructions to be given to the patient at discharge to home.
[2019-10-27 16:38] LABS: iSTAT Arterial Blood Gas HCO3 28 meg/L (19-24); iSTAT Arterial Blood Gas pCO2 44 mmHg (35-46); iSTAT Arterial Blood Gas pH 7.42 (7.35-7.45); iSTAT Arterial Blood Gas pO2 < 32 mmHg (80-95); iSTAT Carbon Dioxide 29 mmol/L (24-31); iSTAT Hematocrit 43 % (42-52); iSTAT Hemoglobin 14.6 g/dl (14.0-18.0); iSTAT Potassium 3.3 mmol/L (3.3-5.0); iSTAT Sodium 138 mmol/L (135-144)
[2019-10-27 16:38] LABS: iSTAT Arterial Blood Gas HCO3 30 meg/L (19-24); iSTAT Arterial Blood Gas pCO2 45 mmHg (35-46); iSTAT Arterial Blood Gas pH 7.42 (7.35-7.45); iSTAT Arterial Blood Gas pO2 < 32 mmHg (80-95); iSTAT Carbon Dioxide 31 mmol/L (24-31); iSTAT Hematocrit 45 % (42-52); iSTAT Hemoglobin 15.3 g/dl (14.0-18.0); iSTAT Potassium 3.5 mmol/L (3.3-5.0); iSTAT Sodium 137 mmol/L (135-144)
[2019-10-27 18:27] LABS: Amphetamines+Metham, Urine Neg (Neg); Barbiturates, Urine Neg (Neg); Benzodiazepine, Urine Neg (Neg); Cocaine, Urine Neg (Neg); MDMA (Ecstacy), Urine Neg (Neg); Methadone, Urine Neg (Neg); Opiate, Urine Neg (Neg); Phencyclidine, Urine Neg (Neg)
[2019-10-27] MEDS: ENOXAPARIN INJ 40 MG/0.4 ML SYR SQ SCH (22:31)
[2019-10-28] MEDS: GABAPENTIN 600 MG TAB PO SCH ×3 (06:03→23:01)
[2019-10-28 07:12] LABS: BUN Creatinine Ratio 12.9 (10-20); Calcium 8.9 mg/dl (8.5-10.1); Est GFR (African American) 96.8; Est GFR (Non-African American) 83.5; Potassium 3.1 mmol/L (3.5-5.1)
[2019-10-28] MEDS: ASPIRIN 81 MG ECTAB PO SCH (08:32)
[2019-10-28] MEDS: SPIRONOLACTONE 25 MG TAB PO SCH (08:32)
[2019-10-28] MEDS: SACUBITRIL-VALSARTAN 24-26 MG TAB PO SCH ×2 (08:33→20:48)
[2019-10-28] MEDS: FOLIC ACID 1 MG in SYRINGE 9.8 ML IV SCH (08:33)
[2019-10-28] MEDS: METOPROLOL SUCC 25MG EXT REL TAB PO SCH (08:34)
[2019-10-28] MEDS: ESCITALOPRAM OXALATE 10 MG TAB PO SCH (08:34)
[2019-10-28] MEDS: THIAMINE HCL 200 MG in SODIUM CHLORIDE 0.9% 50 ML IV SCH (08:35)
[2019-10-28] MEDS ORDERED: POTASSIUM CHLORIDE 20 MEQ TABCR PO STA (10:26)
[2019-10-28 11:25] LABS: Alanine Aminotransferase 64 U/L (12-78); Aspartate Aminotransferase 46 U/L (15-37)
[2019-10-28] MEDS ORDERED: FUROSEMIDE 40 MG TAB PO ONE (13:43)
--- NOTE | 2019-10-28 13:43 | Cardiology Progress Note ---
Date of Service October 28, 2019 Assessment & Plan (1) Acute systolic (congestive) heart failure: (2) Dilated cardiomyopathy: (3) Left bundle branch block: (4) Atypical chest pain: (5) Alcohol abuse: ASSESSMENT/PLAN: 1. Acute systolic CHF: Filling pressures were not significantly elevated yesterday but still has paroxysmal nocturnal dyspnea. Lasix 40 mg p.o. x1 now and then 20 mg p.o. daily tomorrow. Continue spironolactone. We discussed importance of a low-sodium diet, less than 2000 mg daily. Daily weights and strict I&Os. 2. Dilated cardiomyopathy: Nonischemic. Alcohol abuse likely etiology. We once again discussed the importance of alcohol cessation. Continue metoprolol succinate 25 mg daily and this can be further titrated as an outpatient. Continue low-dose Entresto. 3. Left bundle-branch block: Plan as above. New diagnosis. 4. Atypical chest pain: Chest pain is not consistent with angina. 5. Alcohol abuse: Dr. Martinez presented to the bedside and we all discussed the importance of alcohol cessation and strategies as an outpatient to help maintain sobriety. 6. Tobacco abuse: Recommend that he stop smoking. 7. Disposition: Cardiology will continue to follow. Patient care discussed with Dr. Martinez of the primary hospitalist service. Close follow-up in Heart failure program and Cardiology outpatient office. Admission and Anticipated Discharge Date Admission Date: October 26, 2019 Subjective He was seen this morning at approximately 11:30 a.m.. He denies any further chest pain. He denies syncope, near-syncope, palpitations, or edema. He did have some paroxysmal nocturnal dyspnea but overall his breathing has improved. He denies bleeding. He was unaccompanied. Review of systems: As above. Physical Exam Physical Exam: Gen.: No acute distress. Alert and oriented. HEENT: Anicteric sclera. Neck: No significant JVD today. Cardiac: PMI was nonpalpable. No ventricular heave. Regular. Normal S1-S2. 1/6 systolic murmur at the apex. No rubs. Pulmonary: Mild bilateral expiratory wheezing. Abdomen: Soft, nontender, nondistended, with normoactive bowel sounds. No bruits noted. Extremities: 2+ radial pulses bilaterally. Right radial catheterization site is clean, dry, and intact without erythema or discharge. 2+ posterior tibialis pulses bilaterally. No significant pitting edema. No cyanosis. Psychiatric: Affect appears appropriate. Results & Data ([facility]) Vital Signs (Past 12 Hours) Vital Signs Temp Pulse Resp BP Pulse Ox 10/28/19 12:00 36.8 C 85 20 118/88 99 10/28/19 07:28 36.9 C 92 H 18 146/82 H 96 10/28/19 04:45 36.6 C 82 18 138/77 97 Intake & Output 10/26/19 10/27/19 10/28/19 10/29/19 06:59 06:59 06:59 06:59 Intake Total 2213.2 / 2213.2 1132 / 1132 52 / 52 Output Total 4352 / 4352 1550 / 1550 Balance -2138.8 / -2138.8 -418 / -418 52 / 52 Weight 100.7 kg 100.9 kg Laboratory Results Laboratory Results - last 24 hr 10/27/19 10/27/19 10/27/19 15:50 16:00 17:45 POC Hgb 15.3 14.6 POC Hct 45 43 POC pH 7.42 7.42 POC pCO2 45 44 POC pO2 < 32 L < 32 L POC HCO3 30 H 28 H POC Total CO2 31 29 POC Base Excess 5.0 H 4.0 H POC ABG O2 Sat 62.0 L 58.0 L POC Sodium 137 138 Sodium POC Potassium 3.5 3.3 Potassium Chloride Carbon Dioxide Anion Gap BUN Creatinine Est Cr Clr Drug Dosing Est GFR ( Amer) Est GFR (Non-Af Amer) BUN/Creatinine Ratio Glucose Calcium AST ALT Specimen Hemolysis Urine Opiates Screen Neg Ur Methadone, Qual Neg Urine Barbiturates Neg Ur Phencyclidine (PCP) Neg U Amphetamin/Meth Scrn Neg MDMA (Ecstasy) Screen Neg U Benzodiazepines Scrn Neg Ur Cocaine Metabolite Neg U Marijuana (THC) Screen Pos H U Marijuana THC Carboxy Drug Screen Comment 10/27/19 10/28/19 10/28/19 17:45 06:19 06:19 POC Hgb POC Hct POC pH POC pCO2 POC pO2 POC HCO3 POC Total CO2 POC Base Excess POC ABG O2 Sat POC Sodium Sodium 137 POC Potassium Potassium 3.1 L Chloride 102 Carbon Dioxide 26 Anion Gap 9.0 BUN 14 D Creatinine 1.10 Est Cr Clr Drug Dosing 108.0 Est GFR ( Amer) 96.8 Est GFR (Non-Af Amer) 83.5 BUN/Creatinine Ratio 12.9 Glucose 100 H Calcium 8.9 AST 46 H ALT 64 Specimen Hemolysis Urine Opiates Screen Ur Methadone, Qual Urine Barbiturates Ur Phencyclidine (PCP) U Amphetamin/Meth Scrn MDMA (Ecstasy) Screen U Benzodiazepines Scrn Ur Cocaine Metabolite U Marijuana (THC) Screen U Marijuana THC Carboxy Pending Drug Screen Comment Pending Diagnostic Findings Telemetry personally reviewed: Sinus rhythm. No arrhythmia. Cardiac catheterization 10/27/2019: Coronary angiography: 1. Left main coronary artery: LMCA is large in caliber. No significant CAD. 2. Left anterior descending: LAD is a large caliber vessel that extends to the apex. Medium caliber D1. Large caliber D2. No significant CAD. 3. Circumflex: The circumflex is large and codominant. Medium caliber high OM1. Large caliber OM 2 with lateral branches. Circumflex PDA. No significant CAD within the circumflex system. 4. Right coronary artery: The RCA is large and codominant. There is no significant CAD within the RCA or PDA. Left heart catheterization: 1. Left ventriculography was not performed. 2. No significant aortic stenosis. 3. Mildly elevated LVEDP; 15 mmHg. Right heart catheterization: 1. Pulmonary capillary wedge pressure: V wave 12 with a mean of 10 mmHg. 2. PA pressure 26/12 with a mean of 17 mmHg. 3. RV pressure 25/1 with RVEDP of 2 mmHg. 4. RA pressure: A wave 8; V wave 6; mean 4 mmHg. 5. Cardiac output via thermodilution was 3.93 L/min, with a cardiac index of 1.78 L/min/m. 6. PVR 1.78 Wood units. Medications Administered Current Inpatient Medications Al Hydrox/Mg Hydrox/Simethicone (Aluminum/Magnesium Susp 30 Ml Udc) 15 ml PO Q4H PRN PRN Reason: Dyspepsia Stop: 11/25/19 19:55 Aspirin (Aspirin 81 Mg Ectab) 81 mg PO QAM [facility] Stop: 11/26/19 08:59 Last Admin: 10/28/19 08:32 Dose: 81 mg Documented by: Enoxaparin Sodium (Enoxaparin Inj 40 Mg/0.4 Ml Syr) 40 mg SQ QPM [facility] Stop: 11/25/19 22:59 Last Admin: 10/27/19 22:31 Dose: 40 mg Documented by: Escitalopram Oxalate (Escitalopram Oxalate 10 Mg Tab) [facility] Stop: 11/27/19 08:59 Last Admin: 10/28/19 08:34 Dose: 10 mg Documented by: Furosemide (Furosemide 40 Mg Tab) 40 mg PO NOW ONE Stop: 10/28/19 13:44 Furosemide (Furosemide 20 Mg Tab) 20 mg PO [facility] Stop: 11/28/19 08:59 Gabapentin (Gabapentin 600 Mg Tab) 600 mg PO Q8H [facility] Stop: 10/28/19 14:01 Last Admin: 10/28/19 06:03 Dose: 600 mg Documented by: Gabapentin (Gabapentin 600 Mg Tab) 600 mg PO Q24H [facility] Stop: 10/30/19 12:01 Gabapentin (Gabapentin 600 Mg Tab) 600 mg PO Q12H [facility] Stop: 10/29/19 12:01 Lorazepam (Ativan) 1 mg in 2 mls @ 2 mls/min IV ONE PRN; Protocol PRN Reason: EtoH Withdrawal AWSS 6-10 Stop: 11/25/19 19:55 Last Admin: 10/26/19 21:29 Dose: 2 mls/min Documented by: Folic Acid 1 mg/ Syringe 10 mls @ 5 mls/min IV [facility] Stop: 11/25/19 20:59 Last Admin: 10/28/19 08:33 Dose: 5 mls/min Documented by: Thiamine HCl 200 mg/ Sodium (Chloride) 52 mls @ 210 mls/hr IV [facility] Stop: 11/25/19 20:59 Last Infusion: 10/28/19 08:55 Dose: Infused Documented by: Lorazepam (Lorazepam 1 Mg Tab) 1 mg PO ONE PRN; Protocol PRN Reason: EtoH Withdrawal AWSS 6-10 Metoprolol Succinate (Metoprolol Succ 25mg Ext Rel Tab) 25 mg PO [facility] Stop: 11/26/19 13:44 Last Admin: 10/28/19 08:34 Dose: 25 mg Documented by: Ondansetron HCl (Ondansetron Inj 2 Mg/Ml 2 Ml Vial) 4 mg IV Q6H PRN PRN Reason: Nausea Stop: 11/25/19 19:55 Polyethylene Glycol (Polyethylene (Miralax) 17 Gm Pack) 17 gm PO DAILY PRN PRN Reason: Constipation Stop: 11/25/19 19:55 Sacubitril/Valsartan (Sacubitril-Valsartan 24-26 Mg Tab) 1 tab PO BID [facility] Stop: 11/25/19 20:59 Last Admin: 10/28/19 08:33 Dose: 1 tab Documented by: Spironolactone (Spironolactone 25 Mg Tab) 25 mg PO QAM [facility] Stop: 11/26/19 08:59 Last Admin: 10/28/19 08:32 Dose: 25 mg Documented by: PG Care Time/CCT Total # of Minutes Spent Total Time Spent with Patient: Total time spent is greater than 50% in coordination of care (as documented) at patient's floor/unit and/or counseling patient: Coding Level of Care Code 00676 Subseq Hosp Care Lvl 3 Diagnoses Acute systolic (congestive) heart failure I50.21 Dilated cardiomyopathy I42.0 Left bundle branch block I44.7 Atypical chest pain R07.89 Alcohol abuse F10.10
--- NOTE | 2019-10-28 16:36 | Hospitalist Progress Note ---
Date of Service October 28, 2019 Assessment & Plan (1) Dilated cardiomyopathy: Pk Espitia is a 38 year old man with a past medical history of tobacco abuse and alcoholism who presents today with a new diagnosis of acute decompensated CHF HFrEF Echo showing EF 15-20% global hypokinesis, Most likely secondary to alcoholic cardiomyopathy, but patient does have risk factors for ischemic disease pain Personal Carer over the next few days Starting patient on entresto, spironolactone and lasix 40 mg BID Troponin without trend remains normal, Lyme and anaplasmosis unremarkable TSH normal Cardiology consulted, Dr. 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 Will reinstitute Lexapro therapy at 10 mg a day consider psychiatric follow-up as an outpatient Full Code (2) Atypical chest pain: (3) Acute systolic (congestive) heart failure: (4) Alcohol abuse: ASSESSMENT/PLAN: 1. Acute systolic CHF: He appears hypervolemic. Recommend Lasix 40 mg IV x1 now. Would attempt to diurese at least 1 L negative today. We discussed importance of a low-sodium diet, less than 2000 mg daily. Daily weights and strict I&Os. 2. Dilated cardiomyopathy: Could be due to alcohol abuse. Cannot exclude ischemic etiology given agent tobacco abuse. We discussed the importance of alcohol cessation. Would recommend beta-anoop in the form of carvedilol or metoprolol succinate, but would first diurese as he is decompensated from a heart failure standpoint. He was hypertensive in the emergency department and if remains so, consider low-dose Entresto, which would also be indicated. We discussed cardiac catheterization, including risks and benefits. Would consider pursuing when he clinically improves from a heart failure standpoint and is able to lay flat. 3. Left bundle-branch block: Plan as above. New diagnosis. 4. Atypical chest pain: Chest pain is not consistent with angina and may improve with diuresis. 5. Alcohol abuse: We discussed the fact that this quite possibly is the etiology of his cardiomyopathy. Recommended cessation from alcohol use. 6. Tobacco abuse: Recommend that he stop smoking. 7. Disposition: Cardiology will continue to follow. Patient care discussed with Dr. Damon (admitting hospitalist) and Dr. De Souza (ED). Highly complex medical issues. Thank you for allowing me to participate in the care of your patient. Please call for any other questions or concerns. Sincerely, Geoff Beebe M.D. (5) Left bundle branch block: (6) Asthma: Admission and Anticipated Discharge Date Admission Date: October 26, 2019 Subjective The pt was without distress, had many questions, no shortness of breath or christiansen, maybe some sob with laying flat last pm. Review of Systems Review of Systems: Mild distress and fatigue no headache, blurry or double vision no speech or swallowing issues Complains of mild vague chest pain with some sensation of pressure but no palpitations He has had resolution of his shortness of breath at rest but still with mild dyspnea on exertion. He has no, cough or wheezes no abdominal pain, nausea or vomiting, diarrhea or constipation no dysuria, hematuria or frequency no focal joint pain or swelling no back pain, CVA tenderness or radicular pain no bruising, bleeding or rashes no focal signs of weakness or numbness or altered sensation Is still complaining of the feelings of some anxiety Physical Exam Physical Exam: The patient appeared well nourished and normally developed. Vital signs as documented. Head exam is normocephalic atraumatic no scleral icterus Neck is without JVD, thyromegaly, or carotid bruits. Lungs are clear to auscultation, maybe slightly diminished at the bases Cardiac exam, Rhythm is regular.. No murmurs, rubs or gallops. Abdominal exam reveals normal bowel sounds, soft non tender, no masses Extremities are nonedematous and both pedal pulses are normal. Neurologic exam is alert and oriented, no focal loss of strength or sensation Skin is without bruises or rashes Psychologically is without concerns for anxiety or depression to observational assessment however patient states he is very anxious and depressed Results & Data Results & Data ([facility]) Vital Signs (Past 12 Hours) Vital Signs Temp Pulse Resp BP BP Pulse Ox 10/28/19 15:07 98.2 F 75 18 118/81 99 10/28/19 12:00 98.2 F 85 20 118/88 99 10/28/19 07:28 98.4 F 92 H 18 146/82 H 96 10/28/19 04:45 97.9 F 82 18 138/77 97 PG Care Time/CCT Total # of Minutes Spent Total Time Spent with Patient: Total time spent is greater than 50% in coordination of care (as documented) at patient's floor/unit and/or counseling patient: Coding Level of Care Code 12591 Subseq Hosp Care Lvl 3 Diagnoses Dilated cardiomyopathy I42.0 Atypical chest pain R07.89 Acute systolic (congestive) heart failure I50.21 Alcohol abuse F10.10 Left bundle branch block I44.7 Asthma J45.909
[2019-10-28] MEDS: ENOXAPARIN INJ 40 MG/0.4 ML SYR SQ SCH (20:48)
[2019-10-29 06:45] LABS: BUN Creatinine Ratio 14.2 (10-20); Calcium 8.6 mg/dl (8.5-10.1); Creatinine Clr Calc Pharmacy 116.2 ml/min; Est GFR (African American) 106.1; Est GFR (Non-African American) 91.5; Potassium 3.6 mmol/L (3.5-5.1)
[2019-10-29] MEDS: SACUBITRIL-VALSARTAN 24-26 MG TAB PO SCH ×2 (08:27→21:06)
[2019-10-29] MEDS: METOPROLOL SUCC 25MG EXT REL TAB PO SCH (08:28)
[2019-10-29] MEDS: ESCITALOPRAM OXALATE 10 MG TAB PO SCH (08:28)
[2019-10-29] MEDS: ASPIRIN 81 MG ECTAB PO SCH (08:28)
[2019-10-29] MEDS: SPIRONOLACTONE 25 MG TAB PO SCH (08:29)
[2019-10-29] MEDS: FOLIC ACID 1 MG in SYRINGE 9.8 ML IV SCH (08:30)
[2019-10-29] MEDS: THIAMINE HCL 200 MG in SODIUM CHLORIDE 0.9% 50 ML IV SCH (08:31)
[2019-10-29] MEDS: FUROSEMIDE 20 MG TAB PO SCH (08:59)
[2019-10-29] MEDS ORDERED: METOPROLOL SUCC 25MG EXT REL TAB PO ONE (11:35)
--- NOTE | 2019-10-29 11:36 | Cardiology Progress Note ---
Date of Service October 29, 2019 Assessment & Plan (1) Acute systolic (congestive) heart failure: (2) Dilated cardiomyopathy: (3) Left bundle branch block: (4) Atypical chest pain: (5) Alcohol abuse: ASSESSMENT/PLAN: 1. Acute systolic CHF: He appears euvolemic on examination. Continue forward Lasix 20 mg p.o. daily in addition to spironolactone. Low-sodium diet, less than 2000 mg daily. Daily weights and strict I&Os. 2. Dilated cardiomyopathy: Nonischemic. Likely alcohol induced. We once again discussed the importance of alcohol cessation. Increase metoprolol succinate to 50 mg daily. Continue low-dose Entresto. Optimize medical therapy as an outpatient. 3. Left bundle-branch block: Plan as above. New diagnosis. 4. Atypical chest pain: Chest pain is not consistent with angina. Resolved. 5. Alcohol abuse: Refrain from alcohol consumption. 6. Tobacco abuse: Recommend that he stop smoking. 7. Disposition: Can be discharged home from a cardiology perspective. He will have labs done in anticipation of his heart failure program visit. Close follow-up in Heart failure program and Cardiology outpatient office. We discussed potential for cardiac rehab but given the fact that he does not drive, he inquired about a home program. Will investigate this for him. Admission and Anticipated Discharge Date Admission Date: October 26, 2019 Subjective He feels even better today than yesterday. He denies any shortness of breath. He denies orthopnea or PND overnight. He has not yet ambulated in the hallways. He denies chest pain, syncope, near-syncope, palpitations, edema, or bleeding. His tremor has resolved. His uncle presented to the bedside during our visit. Review of systems: As above. Physical Exam Physical Exam: Gen.: No acute distress. Alert and oriented. HEENT: Anicteric sclera. Neck: No JVD today. Cardiac: No ventricular heave. Regular. Normal S1-S2. No murmur. No rubs. Pulmonary: Clear to auscultation bilaterally without wheezing, rales, or rhonchi. Abdomen: Soft, nontender, nondistended, with normoactive bowel sounds. No bruits noted. Extremities: 2+ radial pulses bilaterally. Right radial catheterization site is clean, dry, and intact without erythema or discharge. 2+ posterior tibialis pulses bilaterally. No edema. No cyanosis. Psychiatric: Affect appears appropriate. Results & Data ([facility]) Vital Signs (Past 12 Hours) Vital Signs Temp Pulse Resp BP BP Pulse Ox 10/29/19 07:58 36.8 C 82 18 107/78 99 10/29/19 03:47 36.7 C 78 16 105/73 98 Intake & Output 10/27/19 10/28/19 10/29/19 10/30/19 06:59 06:59 06:59 06:59 Intake Total 2213.2 / 2213.2 1132 / 1132 977 / 977 Output Total 4352 / 4352 1550 / 1550 1950 / 1950 Balance -2138.8 / -2138.8 -418 / -418 -973 / -973 Weight 100.7 kg 100.9 kg 100.4 kg Laboratory Results Laboratory Results - last 24 hr 10/29/19 05:46 Sodium 137 Potassium 3.6 D Chloride 103 Carbon Dioxide 27 Anion Gap 7.0 BUN 14 Creatinine 1.02 Est Cr Clr Drug Dosing 116.2 Est GFR ( Amer) 106.1 Est GFR (Non-Af Amer) 91.5 BUN/Creatinine Ratio 14.2 Glucose 97 Calcium 8.6 Diagnostic Findings Telemetry personally reviewed: Sinus rhythm. No arrhythmia. Medications Administered Current Inpatient Medications Al Hydrox/Mg Hydrox/Simethicone (Aluminum/Magnesium Susp 30 Ml Udc) 15 ml PO Q4H PRN PRN Reason: Dyspepsia Stop: 11/25/19 19:55 Aspirin (Aspirin 81 Mg Ectab) 81 mg PO [facility] Stop: 11/26/19 08:59 Last Admin: 10/29/19 08:28 Dose: 81 mg Documented by: Enoxaparin Sodium (Enoxaparin Inj 40 Mg/0.4 Ml Syr) 40 mg SQ QPM [facility] Stop: 11/25/19 22:59 Last Admin: 10/28/19 20:48 Dose: 40 mg Documented by: Escitalopram Oxalate (Escitalopram Oxalate 10 Mg Tab) [facility] Stop: 11/27/19 08:59 Last Admin: 10/29/19 08:28 Dose: 10 mg Documented by: Furosemide (Furosemide 20 Mg Tab) 20 mg PO [facility] Stop: 11/28/19 08:59 Last Admin: 10/29/19 08:59 Dose: 20 mg Documented by: Gabapentin (Gabapentin 600 Mg Tab) 600 mg PO Q24H [facility] Stop: 10/30/19 12:01 Gabapentin (Gabapentin 600 Mg Tab) 600 mg PO Q12H [facility] Stop: 10/29/19 12:01 Last Admin: 10/28/19 23:01 Dose: 600 mg Documented by: Lorazepam (Ativan) 1 mg in 2 mls @ 2 mls/min IV ONE PRN; Protocol PRN Reason: EtoH Withdrawal AWSS 6-10 Stop: 11/25/19 19:55 Last Admin: 10/26/19 21:29 Dose: 2 mls/min Documented by: Folic Acid 1 mg/ Syringe 10 mls @ 5 mls/min [facility] Stop: 11/25/19 20:59 Last Admin: 10/29/19 08:30 Dose: 5 mls/min Documented by: Thiamine HCl 200 mg/ Sodium (Chloride) 52 mls @ 210 mls/hr [facility] Stop: 11/25/19 20:59 Last Infusion: 10/29/19 09:08 Dose: Infused Documented by: Lorazepam (Lorazepam 1 Mg Tab) 1 mg PO ONE PRN; Protocol PRN Reason: EtoH Withdrawal AWSS 6-10 Metoprolol Succinate (Metoprolol Succ 25mg Ext Rel Tab) 25 mg PO [facility] Stop: 11/26/19 13:44 Last Admin: 10/29/19 08:28 Dose: 25 mg Documented by: Ondansetron HCl (Ondansetron Inj 2 Mg/Ml 2 Ml Vial) 4 mg IV Q6H PRN PRN Reason: Nausea Stop: 11/25/19 19:55 Polyethylene Glycol (Polyethylene (Miralax) 17 Gm Pack) 17 gm PO DAILY PRN PRN Reason: Constipation Stop: 11/25/19 19:55 Sacubitril/Valsartan (Sacubitril-Valsartan 24-26 Mg Tab) 1 tab PO BID [facility] Stop: 11/25/19 20:59 Last Admin: 10/29/19 08:27 Dose: 1 tab Documented by: Spironolactone (Spironolactone 25 Mg Tab) 25 mg PO QAM [facility] Stop: 11/26/19 08:59 Last Admin: 10/29/19 08:29 Dose: 25 mg Documented by: PG Care Time/CCT Total # of Minutes Spent Total Time Spent with Patient: Total time spent is greater than 50% in coordination of care (as documented) at patient's floor/unit and/or counseling patient: Coding Level of Care Code 55747 Subseq Hosp Care Lvl 3 Diagnoses Acute systolic (congestive) heart failure I50.21 Dilated cardiomyopathy I42.0 Left bundle branch block I44.7 Atypical chest pain R07.89 Alcohol abuse F10.10
[2019-10-29] MEDS: GABAPENTIN 600 MG TAB PO SCH (11:57)
--- NOTE | 2019-10-29 14:42 | Hospitalist Progress Note ---
Date of Service October 29, 2019 Assessment & Plan (1) Dilated cardiomyopathy: Pk Espitia is a 38 year old man with a past medical history of tobacco abuse and alcoholism who presents today with a new diagnosis of acute decompensated CHF HFrEF Echo showing EF 15-20% global hypokinesis, Most likely secondary to alcoholic cardiomyopathy, but patient does have risk factors for ischemic disease pain Informatics Educator over the next few days the pt is tolerating metoprolol entresto, spironolactone and lasix 40 mg BID Troponin without trend remains normal, Lyme and anaplasmosis unremarkable TSH normal Cardiology consulted, Dr. 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 Will reinstitute Lexapro therapy at 10 mg a day consider psychiatric follow-up as an outpatient Full Code (2) Atypical chest pain: (3) Acute systolic (congestive) heart failure: (4) Left bundle branch block: (5) Asthma: Admission and Anticipated Discharge Date Admission Date: October 26, 2019 Subjective The patient denies any shortness of breath. He continues to deny orthopnea or PND overnight. He has ambulated in the hallways with only mild christiansen. He denies chest pain, syncope, near-syncope, palpitations, edema, or bleeding. His tremor has resolved. His aunt presented to the bedside during our visit. Review of Systems Review of Systems: Mild distress and fatigue no headache, blurry or double vision no speech or swallowing issues Complains of mild vague chest pain with some sensation of pressure but no palpitations He has had resolution of his shortness of breath at rest but still with mild dyspnea on exertion. He has no, cough or wheezes no abdominal pain, nausea or vomiting, diarrhea or constipation no dysuria, hematuria or frequency no focal joint pain or swelling no back pain, CVA tenderness or radicular pain no bruising, bleeding or rashes no focal signs of weakness or numbness or altered sensation Is still complaining of the feelings of some anxiety Physical Exam Physical Exam: The patient appeared well nourished and normally developed. Vital signs as documented. Head exam is normocephalic atraumatic no scleral icterus Neck is without JVD, thyromegaly, or carotid bruits. Lungs are clear to auscultation, maybe slightly diminished at the bases Cardiac exam, Rhythm is regular.. No murmurs, rubs or gallops. Abdominal exam reveals normal bowel sounds, soft non tender, no masses Extremities are nonedematous and both pedal pulses are normal. Neurologic exam is alert and oriented, no focal loss of strength or sensation Skin is without bruises or rashes Psychologically is without concerns for anxiety or depression to observational assessment however patient states he is very anxious and depressed Results & Data Results & Data ([facility]) Vital Signs (Past 12 Hours) Vital Signs Temp Pulse Resp BP BP Pulse Ox 10/29/19 11:45 77 16 124/76 98 10/29/19 07:58 98.2 F 82 18 107/78 99 10/29/19 03:47 98.1 F 78 16 105/73 98 PG Care Time/CCT Total # of Minutes Spent Total Time Spent with Patient: Total time spent is greater than 50% in coordination of care (as documented) at patient's floor/unit and/or counseling patient: Coding Level of Care Code 16014 Subseq Hosp Care Lvl 2 Diagnoses Dilated cardiomyopathy I42.0 Atypical chest pain R07.89 Acute systolic (congestive) heart failure I50.21 Left bundle branch block I44.7 Asthma J45.909
[2019-10-29 16:14] LABS: Marijuana Quant, GCMS Urine 55 ng/mL (<5)
[2019-10-29] MEDS: ENOXAPARIN INJ 40 MG/0.4 ML SYR SQ SCH (21:07)
[2019-10-30] MEDS ORDERED: METOPROLOL SUCC 50MG EXT REL TAB PO SCH (09:00)
--- NOTE | 2019-10-30 09:28 | Cardiology Progress Note ---
Date of Service October 30, 2019 Assessment & Plan (1) Acute systolic (congestive) heart failure: (2) Alcohol abuse: ASSESSMENT/PLAN: 1. Acute systolic CHF: He appears euvolemic on examination. Continue forward Lasix 20 mg p.o. daily in addition to spironolactone. Low-sodium diet, less than 2000 mg daily. Daily weights and strict I&Os. 2. Dilated cardiomyopathy: Nonischemic, likely alcohol induced. We once again discussed the importance of alcohol cessation. Borderline hypotension but asymptomatic today. Continue metoprolol succinate to 50 mg daily. Continue low- dose Entresto. Recommend that he request a 30 day free trial card upon discharge. Optimize medical therapy as an outpatient as blood pressure and heart rate allow. 3. Left bundle-branch block: Plan as above. New diagnosis. 4. Atypical chest pain: Chest pain is not consistent with angina. Resolved. 5. Alcohol abuse: Refrain from alcohol consumption. 6. Tobacco abuse: Recommend that he stop smoking and chewing tobacco. 7. Disposition: Can be discharged home from a cardiology perspective. He will have labs done in anticipation of his heart failure program visit. Close follow-up in Heart failure program and Cardiology outpatient office. We discussed potential for cardiac rehab but given the fact that he does not drive, he inquired about a home program. Will investigate this for him. Care coordination involved. Met with them today and she is going to establish him with primary care in [place] so it's closer for him. *Discussed daily weights once at home. Discussed reasons to notify the CHF program - weight gain, SOB, edema, orthopnea, fatigue. *Discharge weight 221 lb. (3) Left bundle branch block: (4) Dilated cardiomyopathy: Follow up with the heart failure program has been arranged for 11/03/19 at 900. Patient prefers afternoon appointments because it is easier for his transportation. Will try to accommodate this for him. Admission and Anticipated Discharge Date Admission Date: October 26, 2019 Subjective He reports he's feeling well today. Emelia, care manager cna was in the room as well. No new complaints or concerns. He has been ambulating around his room without difficulty. He denies shortness of breath, orthopnea, or edema. He denies chest pain, lightheadedness, palpitations, cough, or wheezing. He's net negative 3L for the hospital stay. Weight today is 221 lb. Volume status has been stable on PO Lasix for > 24 hours. He is anxious for discharge. Review of Systems Review of Systems: As noted in HPI. All other ROS are reviewed and otherwise negative at this time. Physical Exam Physical Exam: Gen.: No acute distress. Alert and oriented. HEENT: Anicteric sclera. Neck: No JVD today. Cardiac: No ventricular heave. Regular. Normal S1-S2. No murmur. No rubs. Pulmonary: Clear to auscultation bilaterally without wheezing, rales, or rhonchi. Abdomen: Soft, nontender, nondistended, with normoactive bowel sounds. No bruits noted. Extremities: 2+ radial pulses bilaterally. Right radial catheterization site is clean, dry, and intact without erythema or discharge. 2+ posterior tibialis pulses bilaterally. No edema. No cyanosis. Psychiatric: Affect appears appropriate. Results & Data ([facility]) Vital Signs (Past 12 Hours) Vital Signs Temp Pulse Pulse Pulse Resp BP BP 10/30/19 07:55 98.2 F 66 18 104/63 10/30/19 07:47 60 10/30/19 04:00 97.9 F 68 16 99/65 L 10/29/19 23:40 97.9 F 79 20 87/59 L Pulse Ox 10/30/19 07:55 95 10/30/19 07:47 10/30/19 04:00 97 10/29/19 23:40 98 PG Care Time/CCT Total # of Minutes Spent Total Time Spent with Patient: Total time spent is greater than 50% in coordination of care (as documented) at patient's floor/unit and/or counseling patient: Coding Level of Care Code 94775 Subseq Hosp Care Lvl 3 Diagnoses Acute systolic (congestive) heart failure I50.21 Alcohol abuse F10.10 Left bundle branch block I44.7 Dilated cardiomyopathy I42.0
[2019-10-30] MEDS: FOLIC ACID 1 MG in SYRINGE 9.8 ML IV SCH (09:41)
[2019-10-30] MEDS: SPIRONOLACTONE 25 MG TAB PO SCH (09:42)
[2019-10-30] MEDS: ESCITALOPRAM OXALATE 10 MG TAB PO SCH (09:45)
[2019-10-30] MEDS: ASPIRIN 81 MG ECTAB PO SCH (09:45)
[2019-10-30] MEDS: FUROSEMIDE 20 MG TAB PO SCH (09:46)
[2019-10-30] MEDS: SACUBITRIL-VALSARTAN 24-26 MG TAB PO SCH (09:46)
[2019-10-30] MEDS: THIAMINE HCL 200 MG in SODIUM CHLORIDE 0.9% 50 ML IV SCH (11:13)
[2019-10-30 11:45] VITALS: BP 112/68; PULSE 87; TEMP 98.4; O2SAT 99
[2019-10-30] MEDS ORDERED: GABAPENTIN 600 MG TAB PO SCH (12:00)
--- NOTE | 2019-10-30 16:45 | Discharge Summary ---
Date of Service October 30, 2019 Admission HPI Per Admitting Provider Pk Espitia is a 38 year old man with a past medical history of asthma, abscess from very brief period of IV heroin use, tobacco abuse and alcoholism. He has had about two months of progressive shortness of breath with exertional chest heaviness, and chest pain with exertion. He has also noticed some orthopnea and when he goes to lie down flat he feels quite short of breath and wheezes. He has had pain typically with exertion lasting only briefly about 10-12 times per day. He has never had episodes like this in the past, initially thought it was ashtma and was using albuterol inhaler, but he has never had much in the way of asthma symptoms despite the diagnosis and does not use any inhalers normally. He went to his PCP's office for shortness of breath who prescribed azithromycin, steroids and albuterol. This was ineffective and on second presentation an ECG was obtained showing new LBB and he was sent to ED. In ED was found to be wheezing though oxygenating well on room air, he was hypertensive and vitals otherwise normal. Labwork significant for an elevated BNP of 4748 and an elvated AST ALT at 61 and 80 respectively. chest xr showing Stat echo was peformed at bedside in the ED and showed a new cardiomegaly and no acute pulmonary edema, a stat echo was performed bedside in ED showing a severely dilated left ventricle with severely reduced systolic function EF estimated at 15-20% with global hy pokinesis. Mild to moderate mitral regurgitation, mild pulmonary hypertension. Cardiology evaluated patient in ED and gave 40 mg IV lasix. Lyme anaplasma, erlichiosis all pending. Patient lives with girlfriend and children, they have all been well recently. 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 Patient has been abusing alcohol for quite some time, drinking about 18 ounces of rum daily and sometimes as much as 36 ounces in a day. Has had bad withdrawal symptoms in the past but no seizures. Last drink was last night, feeling somewhat tremulous now. Smokes cigarettes 40+ pack year smoking history. Full code Principal Diagnosis HFrEF suspected secondary to chronic alcohol use alcohol addiction alcohol withdrawal Discharge Exam The patient appeared well Vital signs as documented. Lungs are clear to auscultation and appear unlabored Cardiac exam, Rhythm is regular.. No murmurs, rubs or gallops. Abdominal exam reveals normal bowel sounds, soft non tender, no masses Extremities are nonedematous and both pedal pulses are normal. Neurologic exam is alert and oriented, no focal loss of strength or sensation Skin is without bruises or rashes Psychologically is without concerns for anxiety or depression. Discharge Data Allergies Allergy/AdvReac Type Severity Reaction Status Date / Time bee venom protein (honey bee) Allergy Unknown Nause,vomiting Verified 10/26/19 16:02 and dizziness Consultations 10/26/19 15:46 Consult Cardiology Stat 10/26/19 16:25 ED Decision to Admit Stat Procedures Performed Operation Date: 10/27/19 07:00 Actual Procedures p Cath, Right and Left Heart - Trevor Beebe MD s Cineradiography w/Routine Exam - Trevor Beebe MD Ordered Studies 10/27/19 15:06 CL Cath Imgs for PACS use only Routine Hospital Course (1) Dilated cardiomyopathy: Pk Espitia is a 38 year old man with a past medical history of tobacco abuse and alcoholism who presents today with a new diagnosis of acute decompensated CHF HFrEF Echo showing EF 15-20% global hypokinesis, Most likely secondary to alcoholic cardiomyopathy, but patient does have risk factors for ischemic disease 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 Beebe who performed heart catheterization on 10/27/2019 with normal coronary anatomy and reasonable intracardiac pressures Follow-up in outpatient heart failure clinic in follow-up with Dr. 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 Will reinstitute Lexapro therapy strongly consider psychiatric follow-up as an outpatient Full Code (2) Atypical chest pain: (3) Acute systolic (congestive) heart failure: (4) Left bundle branch block: (5) Asthma: Total Time Total Time Spent Total Time Spent (In Minutes): It required greater than 30 minutes to prepare this patient for discharge Discharge Plan Discharge Items Patient Disposition: Home - Self-Care Reason For Visit: CHF NEW DIAGNOSIS PROBABLE ALCOHOL CARDIOMYOPATHY Discharge Diagnosis: cardiomyopathy alcohol withdrawal Activity: Resume your previous activity Non-emergency contact: Primary Care Provider and Junior Brand Manager Call non-emergency contact if: you have any medication questions and your symptoms worsen Follow-up/Referrals: Felipe Salter CRNP [Primary Care Provider] - 11/09/19 10:20 am Nevin Moore PA-C [Physician Orthopedic Shoe Fitter] - 11/03/19 9:00 am (Congestive Heart Failure Program Appointment Information Early follow up is essential to managing your heart failure. An appointment has been scheduled for you with the [facility] Heart Failure Program within 7 days of discharge. Anticipate this visit to be 30-60 minutes long. Please expect a barrel burner phone call from one of our nurses approximately 48 hours from discharge. They will also be placing an order for lab work to be completed 1-2 days prior to your heart failure follow up appointment. Please be sure to have this done so we can go over the results when you come in. Office Location The cardiology office building is located in front of the hospital at [address] Bring the following with you to your follow-up doctor appointments: Please bring your daily weight log any discharge paperwork all of your medication bottles with you to this visit. ) Diet: Regular Addtl Attending Provider Instructions: Absolutely no alcohol of any kind. please follow up with a behavioral health provider consider giving AA a try again ACTIVITY RECOMMENDATIONS: Excess manipulation of the wrist should be avoided for the next 24-48 hours. * No lifting over 2 pounds (approximately a 1/2 gallon of milk) with the utilized arm for 24 hours. * No strenuous activity such as bowling or tennis for 3 days. * Keep the site of the procedure covered with a bandage for 24 hours. *You may shower the day after the procedure. Do not take a tub bath or submerge the puncture site in water for the next 3 days. *Do not operate any motorized equipment for 3 days. SPECIAL CARE INSTRUCTIONS: The site may be slightly bruised and sore following your procedure. Should any of the following occur, contact the Dr. who performed your procedure. 1. Redness/inflammation, swelling, chills, or fever, or colored drainage at procedure site within 3-7 days after your procedure. 2. Coldness, discoloration, ongoing numbness, severe pain, or swelling. Expect mild tingling of hand and tenderness at the puncture site for up to three days. If this persists beyond three days, or other symptoms develop, notify the Dr. who performed your procedure. BLEEDING: If the procedure site on your wrist begins to bleed, do not panic 1. Place 1 or 2 fingers firmly just slightly above the insertion site to stop the bleeding. You may be able to feel your pulse as you hold pressure. 2. Lift your finger after 5 minutes to see if the bleeding has stopped. 3. Once the bleeding has stopped, gently wipe the wrist area clean with a bandage. * If the bleeding from your wrist does not stop after 10 minutes, or if there is a large amount of bleeding or spurting, call 911 (do not drive yourself to the hospital). SKIN IRRITATION: * You may experience some redness and/or swelling in the area where radiation was administered. If any skin irritation occurs, please contact your family physician. FOLLOW UP VISIT: 1. Follow up in Heart Failure Program within 1 week of discharge. Addtl Edge Glue Machine Tender Provider Instructions: Call your Primary Care doctor if any of the following symptoms or problems start or get worse: * Shortness of breath or difficulty breathing * Wake up at night short of breath * Chest pain * Cough * Swelling of your hands, feet, or legs * More fatigued or tired with your normal activity * Palpitations - sudden fast heart beats WEIGHT * Weigh yourself every morning after using the bathroom. * Use the same scale. * Wear the same amount of clothing. * Write your weight down on a chart. * Call your Primary Care doctor if you gain more than 2-3 pounds in 1-2 days. MEDICATIONS * Use this discharge instruction sheet for medication instructions. * Take your medications at the time your doctor ordered. * Do not skip a dose of your medicines. * If you miss a dose of medicine, take it as soon as possible, but DO NOT DOUBLE A DOSE. * Read your medicine information when you get home. * Know all of the side effects of your medicine. If in doubt, ask your pharmacist * Call your Primary Care doctor's office if you have any side effects. * Be sure all of your doctors know what medicine and herbs you take (including cold, flu, and herbal medicine). Take the following with you to your follow-up doctor appointments: * Weight Chart * Medication List * List of questions Do not drink excessive alcohol, beer or wine. Pending Studies at Discharge: No Stand-Alone Forms: My [facility] D[facility]agen, Smoking Cessation Medications and DC Order Prescriptions: New metoprolol succinate 50 mg Tablet Extended Release 24 Hr 50 mg PO QAM Qty: 60 RF: 4 Entresto 24-26 mg Tablet 1 tab PO BID Qty: 120 RF: 4 spironolactone 25 mg Tablet 25 mg PO QAM Qty: 60 RF: 4 aspirin 81 mg Tablet,Delayed Release (Dr/Ec) 81 mg PO QAM Qty: 90 RF: 0 furosemide 20 mg Tablet 20 mg PO QAM Qty: 60 RF: 4 gabapentin 100 mg capsule 100 mg PO UD Qty: 26 RF: 0 Continued albuterol sulfate [Ventolin HFA] 90 mcg/actuation HFA aerosol inhaler 2 puffs INH Q6H PRN (Reason: Shortness Of Breath Or Wheezing) RF: 0 escitalopram oxalate 20 mg tablet 20 mg PO DAILY Qty: 30 RF: 4 Discharge Orders: Discharge Order (Routine); Ordered 10/30/19 Ordered By: Omkar Dia/Other Patient Handouts: Understanding the Disease of Addiction, Understanding Alcoholism, Alcohol Addiction, Addiction Ask These Questions, Addiction: Getting Help, Recovering from Addiction, Addiction Recovery Counseling, Cardiomyopathy Dc, Prevent Guidelines Men 40 to 49 Admission Data Admit Date/Time: 10/26/19 18:21 Attending Provider: Omkar Martinez Admit Provider: Tayo Aggarwal Primary Care Provider: Felipe Salter Other Providers: Trevor Beebe ; Jayden Damon Other Interventions: Discharge Summary Assessment (RN) Last Done: 10/30/19 10:46 Coding Level of Care Code D/C Day Management >30 mins Diagnoses Dilated cardiomyopathy I42.0 Atypical chest pain R07.89 Acute systolic (congestive) heart failure I50.21 Left bundle branch block I44.7 Asthma J45.909
[2019-10-31 09:54] LABS: Ehrlichia chaff DNA Bld Not Detected (Not Detected)
== END 2019-10-30 13:01 | disposition home or self-care (01) | DRG 287 ==
LOC: ED 15:04 → SUATTDRO 18:21 → 2E 18:21

== ENCOUNTER 2019-12-06 04:24 | Inpatient (IN) ==
[2019-12-06 04:56] LABS: Basophils # (auto) 0.05 K/uL (0-0.2); Basophils % (auto) 0.8 %; Eosinophils # (auto) 0.08 K/uL (0-0.5); Eosinophils % (auto) 1.3 %; Hematocrit (blood only) 39.7 % (42-52); Hemoglobin 14.1 g/dL (14.0-18.0); Immature Granulocytes # (auto) 0.01 K/uL (0.00-0.02); Immature Granulocytes % (auto) 0.2 %; Lymphocytes # (auto) 1.89 K/uL (1.2-3.4); Lymphocytes % (auto) 30.1 %; Mean Corpuscular Hemoglobin 33.6 pg (25-34); Mean Corpuscular Hgb Conc 35.5 g/dL (32-36); Mean Corpuscular Volume 94.5 fL (80-100); Mean Platelet Volume 9.4 fL (7.4-10.4); Monocytes # (auto) 0.61 K/uL (0.11-0.59); Monocytes % (auto) 9.7 %; Neutrophils # (auto) 3.63 K/uL (1.4-6.5); Neutrophils % (auto) 57.9 %; Platelet Count 170 K/uL (130-400); RDW Coefficient of Variation 12.7 % (11.5-14.5); RDW Standard Deviation 43.4 fL (36.4-46.3); White Blood Count 6.27 K/uL (4.8-10.8)
[2019-12-06 05:13] LABS: Alanine Aminotransferase 43 U/L (12-78); Aspartate Aminotransferase 33 U/L (15-37); BUN Creatinine Ratio 12.2 (10-20); Blood Urea Nitrogen 22 mg/dl (7-18); Calcium 8.9 mg/dl (8.5-10.1); Carbon Dioxide 27 mmol/L (21-32); Chloride 99 mmol/L (98-107); Est GFR (African American) 52.6; Est GFR (Non-African American) 45.4; Glucose 101 mg/dl (70-99); Lipase 177 U/L (73-393); Magnesium 1.8 mg/dl (1.8-2.4); Potassium 3.6 mmol/L (3.5-5.1); Sodium 136 mmol/L (136-145)
[2019-12-06 05:24] LABS: Albumin Globulin Ratio 1.2 (0.9-2); Alkaline Phosphatase 65 U/L (45-117); Bilirubin,Total 0.4 mg/dl (0.2-1); Globulin 3.3 gm/dl (2.5-4.0); NT Pro B Type Natriuretic Pept 1737 pg/ml (0-450); Total Protein 7.3 gm/dl (6.4-8.2); Troponin I < 0.015 ng/ml (0-0.045)
[2019-12-06 05:48] LABS: D Dimer < 190 ug/L FEU (0-500); INR 1.1 (0.9-1.1); Partial Thromboplastin Ratio 0.9; Partial Thromboplastin Time 24.7 Seconds (21.0-31.0); Prothrombin Time 11.2 Seconds (9.0-12.0)
--- NOTE | 2019-12-06 06:37 | XRay Report ---
XR chest 1V portable HISTORY: 39 years-old Male chest pain acute atypical chest pain with reported congestive heart failu re COMPARISON: Chest radiograph 10/27/2019 TECHNIQUE: Portable AP view of the chest FINDINGS: Cardiomediastinal and hilar silhouettes are unchanged. There is mild stable bilateral hilar prominenc e without pneumothorax, pleural effusion, airspace consolidation or overt pulmonary edema. Bones of t he chest appear grossly intact. IMPRESSION: No acute process. ACT 112: Negative or not required by law. The above report was generated using voice recognition software. It may contain grammatical, syntax o r spelling errors. Electronically signed by: Blaise Hardin M.D. 12/06/2019 6:36 AM
--- NOTE | 2019-12-06 06:39 | Emergency Department Note ---
History of Present Illness General Chief complaint: Chest Pain Stated complaint: SHARP CHEST PAIN, HARD TO BREATH Time Seen by Provider: 12/06/19 04:32 History of Present Illness Maximum Pain Intensity: 10 This is a 39-year-old male presenting to the emergency department for evaluation of chest pain symptoms for the past 1 day. The patient has a fairly significant recent medical history. 1 month ago he was seen at this facility for similar symptoms. He was found to have EKG changes and ultimately had echocardiogram showing significant dilated cardiomyopathy with an ejection fraction of 15 to 20%. The patient was medically optimized and ultimately discharged to follow with the CHF program. The patient has a past history of significant alcohol abuse, roughly 18 ounces of hard liquor a day. There is also history of significant tobacco use, marijuana use, and remote heroin use. The patient states that he was driving his car to work this morning when he had left chest discomfort, and elected to come to the ER for evaluation. He does not have fever or chills. He has chronic wheezing and this is unchanged from normal. He feels like he has gained weight over the past few days. Patient rates his current discomfort an 8/10 and has not taken anything [id number] for his symptoms. Home Medications Home Medications Medication Instructions Recorded Confirmed Type albuterol sulfate [Ventolin HFA] 2 puffs INH Q6H PRN 10/26/19 12/06/19 History aspirin 81 mg PO QAM #90 tab 10/30/19 12/06/19 Rx escitalopram oxalate 20 mg PO DAILY #30 tab 10/30/19 12/06/19 Rx furosemide 20 mg PO QAM #60 tab 10/30/19 12/06/19 Rx spironolactone 25 mg PO QAM #60 tab 10/30/19 12/06/19 Rx metoprolol succinate 100 mg 100 mg PO QAM #30 tab 11/21/19 12/06/19 Rx tablet,extended release 24 hr sacubitril 49 mg-valsartan 51 mg 1 tab PO BID #60 tab 11/21/19 12/06/19 Rx tablet Allergies Allergy/AdvReac Type Severity Reaction Status Date / Time bee venom protein (honey bee) Allergy Unknown Nause,vomiting Verified 12/06/19 04:55 and dizziness Past Med/Surg History Medical History (Updated 12/06/19 @ 09:22 by Omkar Martienz MD) Abdominal pain Alcohol abuse Asthma Bee sting allergy Neck muscle spasm Polysubstance abuse Surgical History History of ankle surgery Family History Father Alcohol abuse Mother Suicide and self-inflicted injury by firearm Social History Smoking Status: Current every day smoker Tobacco Type: Cigarettes Age Started Using Tobacco: 11; Cigarettes Per Day: 15; Second Hand Exposure: Yes; Hx Alcohol Use: Yes Alcohol type: hard liquor Hx Substance Use: No Preferred Language: Urdu Communication Ability: Effective Personnel Research Psychologist Required: No Beliefs That Will Affect Care: None Current Living Situation: Alone current occupational status: employed current occupation: [employer] Feels Safe at Home: Yes Assistive Devices: None Review of Systems A total of 10 systems reviewed and were otherwise negative Physical Exam Vital Signs Vital Signs - 24 hr 12/06/19 04:27 12/06/19 04:55 12/06/19 05:00 Temperature 36.7 C Temperature Source Oral Pulse Rate 76 66 66 Pulse Rate from SpO2 Sensor 67 66 Respiratory Rate 18 16 20 Respiratory Effort / Characteristics Non-Labored Spontaneous Respiratory Depth Normal Blood Pressure 109/69 Blood Pressure Mean 82 Pulse Oximetry 95 98 95 Oxygen Delivery Method Room Air Sepsis Recent Fever Within 48 Hours No Sepsis New/Unexplained Change in Mental Status N/A Sepsis Action Taken by Nursing No Action Required 12/06/19 05:30 12/06/19 06:00 12/06/19 06:17 Temperature Temperature Source Pulse Rate 66 68 75 Pulse Rate from SpO2 Sensor 66 68 76 Respiratory Rate 19 20 14 Respiratory Effort / Characteristics Respiratory Depth Blood Pressure 115/81 Blood Pressure Mean 90 Pulse Oximetry 94 95 95 Oxygen Delivery Method Sepsis Recent Fever Within 48 Hours Sepsis New/Unexplained Change in Mental Status Sepsis Action Taken by Nursing 12/06/19 06:30 12/06/19 06:31 12/06/19 07:00 Temperature Temperature Source Pulse Rate 68 70 78 Pulse Rate from SpO2 Sensor 68 71 74 Respiratory Rate 19 20 20 Respiratory Effort / Characteristics Respiratory Depth Blood Pressure 122/78 114/83 Blood Pressure Mean 84 89 Pulse Oximetry 96 94 95 Oxygen Delivery Method Sepsis Recent Fever Within 48 Hours Sepsis New/Unexplained Change in Mental Status Sepsis Action Taken by Nursing 12/06/19 07:01 12/06/19 07:30 12/06/19 07:31 Temperature Temperature Source Pulse Rate 71 70 71 Pulse Rate from SpO2 Sensor 70 69 69 Respiratory Rate 17 19 18 Respiratory Effort / Characteristics Respiratory Depth Blood Pressure 135/86 Blood Pressure Mean 98 Pulse Oximetry 95 96 96 Oxygen Delivery Method Sepsis Recent Fever Within 48 Hours Sepsis New/Unexplained Change in Mental Status Sepsis Action Taken by Nursing 12/06/19 08:00 12/06/19 08:30 12/06/19 08:31 Temperature Temperature Source Pulse Rate 75 69 72 Pulse Rate from SpO2 Sensor 69 70 Respiratory Rate 19 19 19 Respiratory Effort / Characteristics Respiratory Depth Blood Pressure 123/71 141/91 H Blood Pressure Mean 77 113 Pulse Oximetry 96 96 Oxygen Delivery Method Sepsis Recent Fever Within 48 Hours Sepsis New/Unexplained Change in Mental Status Sepsis Action Taken by Nursing VITALS: Vitals are noted on the nurse's note and reviewed by myself. Vital signs stable. GENERAL: White male who appears in no acute distress and is cooperative with the examination. HEAD: Normocephalic atraumatic. EARS: External ear normal. External auditory canals clear, tympanic membranes pearly urias without erythema or effusion bilaterally. NECK: Supple without nuchal rigidity. No lymphadenopathy. No thyromegaly. Cervical spine is nontender. HEART: Regular rate and rhythm without murmurs gallops or rubs. LUNGS: Mild diffuse wheezing throughout ABDOMEN: Positive normal bowel sounds x 4. Soft, nontender, without masses or organomegaly. No guarding or rebound tenderness. MUSCULOSKELETAL: Full range of motion in all extremities. Mild bilateral lower extremity edema. No posterior calf tenderness. NEURO: Patient was alert and oriented to person place and time. CN II through XII grossly intact. Course Administered Medications Aspirin (Aspirin 81 Mg Ectab) 81 mg PO QAM [facility] Stop: 01/05/20 11:59 Last Admin: 12/06/19 12:21 Dose: 81 mg Documented by: [id number] Escitalopram Oxalate (Escitalopram Oxalate 20 Mg Tab) 20 mg PO DAILY [facility] Stop: 01/05/20 11:59 Last Admin: 12/06/19 12:21 Dose: 20 mg Documented by: [id number] Folic Acid (Folic Acid 1 Mg Tab) 1 mg PO QAM [facility] Stop: 01/05/20 11:59 Last Admin: 12/06/19 12:22 Dose: 1 mg Documented by: [id number] Lorazepam (Ativan) 0.5 mg in 1 mls @ 1 mls/min IV Q4H PRN PRN Reason: Agitation Stop: 01/05/20 09:06 Last Admin: 12/06/19 22:27 Dose: 1 mls/min Documented by: [id number] Admin: 12/06/19 17:30 Dose: 1 mls/min Documented by: [id number] Metoprolol Succinate (Metoprolol Succ 50mg Ext Rel Tab) 100 mg PO QAM [facility] Stop: 01/05/20 11:59 Last Admin: 12/06/19 12:22 Dose: 100 mg Documented by: [id number] Sacubitril/Valsartan (Sacubitril-Valsartan 49/51 Mg Tab) 1 tab PO BID [facility] Stop: 01/05/20 20:59 Last Admin: 12/06/19 20:08 Dose: 1 tab Documented by: [id number] Thiamine HCl (Thiamine Hcl 100 Mg Tab) 100 mg PO [facility] Stop: 01/05/20 11:59 Last Admin: 12/06/19 12:21 Dose: 100 mg Documented by: [id number] Discontinued Medications Gabapentin (Gabapentin 600 Mg Tab) 1,200 mg PO NOW ONE Stop: 12/06/19 11:31 Last Admin: 12/06/19 12:21 Dose: 1,200 mg Documented by: [id number] Gabapentin (Gabapentin 600 Mg Tab) 600 mg PO Q6H [facility] Stop: 12/07/19 00:01 Last Admin: 12/06/19 23:32 Dose: 600 mg Documented by: [id number] Admin: 12/06/19 17:25 Dose: 600 mg Documented by: [id number] Multivitamins 10 ml/ Thiamine HCl 100 mg/ Folic Acid 1 mg/Sodium Chloride 1,011.2 mls @ 100 mls/hr IV .Q10H7M ONE Stop: 12/06/19 22:06 Last Infusion: 12/06/19 23:46 Dose: 0 mls/hr Documented by: [id number] Admin: 12/06/19 12:52 Dose: 100 mls/hr Documented by: [id number] Medical Decision Making Differential Diagnosis Differential diagnosis includes, but is not limited to: Myocardial infarction, dysrhythmia, pericarditis, pneumothorax, aortic aneurysm/dissection, DVT/PE, anxiety, GERD, PUD, electrolyte imbalance, thyroid disorder, pneumonia, bronchitis, pancreatitis, and others Laboratory Data Result diagrams: 12/06/19 04:44 12/06/19 04:44 Lab Results 12/06/19 12/06/19 12/06/19 Range/Units 04:44 04:44 04:44 WBC 6.27 (4.8-10.8) K/uL RBC 4.20 L (4.7-6.1) M/uL Hgb 14.1 (14.0-18.0) g/dL Hct 39.7 L (42-52) % MCV 94.5 (80-100) fL MCH 33.6 (25-34) pg MCHC 35.5 (32-36) g/dL RDW Std Deviation 43.4 (36.4-46.3) fL RDW Coeff of Connor 12.7 (11.5-14.5) % Plt Count 170 (130-400) K/uL MPV 9.4 (7.4-10.4) fL Immature Gran % (Auto) 0.2 % Neut % (Auto) 57.9 % Lymph % (Auto) 30.1 % [place] % (Auto) 9.7 % Eos % (Auto) 1.3 % Baso % (Auto) 0.8 % Neut # (Auto) 3.63 (1.4-6.5) K/uL Lymph # (Auto) 1.89 (1.2-3.4) K/uL [place] # (Auto) 0.61 H (0.11-0.59) K/uL Eos # (Auto) 0.08 (0-0.5) K/uL Baso # (Auto) 0.05 (0-0.2) K/uL Immature Gran # (Auto) 0.01 (0.00-0.02) K/uL PT 11.2 (9.0-12.0) Seconds INR 1.1 (0.9-1.1) APTT 24.7 (21.0-31.0) Seconds PTT Ratio 0.9 D-Dimer < 190 (0-500) ug/L FEU Sodium 136 (136-145) mmol/L Potassium 3.6 (3.5-5.1) mmol/L Chloride 99 (98-107) mmol/L Carbon Dioxide 27 (21-32) mmol/L Anion Gap 10.0 (3-11) BUN 22 H (7-18) mg/dl Creatinine 1.81 H (0.6-1.4) mg/dl Est Cr Clr Drug Dosing 66.0 ml/min Est GFR ( Amer) 52.6 Est GFR (Non-Af Amer) 45.4 BUN/Creatinine Ratio 12.2 (10-20) Glucose 101 H (70-99) mg/dl Calcium 8.9 (8.5-10.1) mg/dl Magnesium 1.8 (1.8-2.4) mg/dl Total Bilirubin 0.4 (0.2-1) mg/dl AST 33 (15-37) U/L ALT 43 (12-78) U/L Alkaline Phosphatase 65 (45-117) U/L Troponin I < 0.015 (0-0.045) ng/ml NT-Pro-B Natriuret Pep 1737 H (0-450) pg/ml Total Protein 7.3 (6.4-8.2) gm/dl Albumin 4.0 (3.4-5.0) gm/dl Globulin 3.3 (2.5-4.0) gm/dl Albumin/Globulin Ratio 1.2 (0.9-2) Lipase 177 (73-393) U/L TSH 1.270 (0.300-4.500) uIu/ml 12/06/19 Range/Units 08:02 WBC (4.8-10.8) K/uL RBC (4.7-6.1) M/uL Hgb (14.0-18.0) g/dL Hct (42-52) % MCV (80-100) fL MCH (25-34) pg MCHC (32-36) g/dL RDW Std Deviation (36.4-46.3) fL RDW Coeff of Connor (11.5-14.5) % Plt Count (130-400) K/uL MPV (7.4-10.4) fL Immature Gran % (Auto) % Neut % (Auto) % Lymph % (Auto) % [place] % (Auto) % Eos % (Auto) % Baso % (Auto) % Neut # (Auto) (1.4-6.5) K/uL Lymph # (Auto) (1.2-3.4) K/uL [place] # (Auto) (0.11-0.59) K/uL Eos # (Auto) (0-0.5) K/uL Baso # (Auto) (0-0.2) K/uL Immature Gran # (Auto) (0.00-0.02) K/uL PT (9.0-12.0) Seconds INR (0.9-1.1) APTT (21.0-31.0) Seconds PTT Ratio D-Dimer (0-500) ug/L FEU Sodium (136-145) mmol/L Potassium (3.5-5.1) mmol/L Chloride (98-107) mmol/L Carbon Dioxide (21-32) mmol/L Anion Gap (3-11) BUN (7-18) mg/dl Creatinine (0.6-1.4) mg/dl Est Cr Clr Drug Dosing ml/min Est GFR ( Amer) Est GFR (Non-Af Amer) BUN/Creatinine Ratio (10-20) Glucose (70-99) mg/dl Calcium (8.5-10.1) mg/dl Magnesium (1.8-2.4) mg/dl Total Bilirubin (0.2-1) mg/dl AST (15-37) U/L ALT (12-78) U/L Alkaline Phosphatase (45-117) U/L Troponin I < 0.015 (0-0.045) ng/ml NT-Pro-B Natriuret Pep (0-450) pg/ml Total Protein (6.4-8.2) gm/dl Albumin (3.4-5.0) gm/dl Globulin (2.5-4.0) gm/dl Albumin/Globulin Ratio (0.9-2) Lipase (73-393) U/L TSH (0.300-4.500) uIu/ml Imaging Data Radiologist's Impression: XR chest 1V portable HISTORY: 39 years-old Male chest pain acute atypical chest pain with reported congestive heart failure COMPARISON: Chest radiograph 10/27/2019 TECHNIQUE: Portable AP view of the chest FINDINGS: Cardiomediastinal and hilar silhouettes are unchanged. There is mild stable bilateral hilar prominence without pneumothorax, pleural effusion, airspace consolidation or overt pulmonary edema. Bones of the chest appear grossly intact. IMPRESSION: No acute process. ECG Data Attestation: I personally reviewed and interpreted this ECG as follows: Indication: + chest pain Additional Comments: Normal sinus rhythm @[address] elevation Left bundle branch block When compared with ECG of 26-OCT-2019 15:24, QRS axis Shifted right T wave inversion now evident in Inferior leads T wave inversion less evident in Lateral leads MDM Narrative Physical exam and history were performed. Nursing notes, EMR, and Medication List were personally reviewed. Patient appears to have left-sided chest discomfort bring him to the ER. He does have a complicated medical history with an EF of 15 to 20%. He continues to abuse alcohol. IV access was established and labs were obtained. Chest x- ray was performed. An order was placed for continuous cardiac monitoring. The monitor shows a rate of 72 with normal sinus rhythm. The patient's blood work is as above and was reviewed. He does not have a significantly elevated white blood cell count or gross anemia. INR is 1.1. He does not have significant electrolyte imbalance. The patient does have an increase in his creatinine, where his baseline is roughly 1.0, and today is 1.81. Glucose is 101. BNP is over 1700. Lipase and transaminases are not diagnostic. Urine is without evidence of infection. Drug abuse screen is positive for marijuana. X-ray was performed and reviewed by myself and radiology showing no acute process. Overall I do have concern for the patient's wellbeing. He does have an elevation of his BNP, and certainly could be in some element of heart failure considering his history. I am hesitant to start medication here in the ER without discussing the case with the hospitalist service. I did speak with Dr. Martinez regarding the patient, and Dr. Martinez indicated that he would eval uate the patient in the department. The patient was pleased with this plan. Please see Dr. Martinez's dictation for further patient course, plan, and disposition. The chart was completed utilizing [employer] Voice Recognition Software. Grammatical errors, random word insertions, pronoun errors, and incomplete sentences are an occasional consequence of this system due to software limitatio ns, ambient noise, and hardware issues. Any formal questions or concerns about the content, text, or information contained within the body of this dictation should be directly addressed to the provider for clarification. . Impression & Plan Atypical chest pain, Chronic systolic congestive heart failure, KAROLYN (acute kidney injury) Discharge Plan Visit Data Chief Complaint: Chest Pain Stated Complaint: SHARP CHEST PAIN, HARD TO BREATH ED Provider: Emily Rodriguez ED Midlevel Provider: Jon Roger Discharge Problem: Atypical chest pain, Chronic systolic congestive heart failure, KAROLYN (acute kidney injury) Patient Disposition: Admitted As Inpatient Discharge Instructions Interventions: ED Discharge Assessment Last Done: 12/06/19 09:50
[2019-12-06] MEDS ORDERED: cloNIDine HCL 0.1 MG TAB PO PRN (09:07)
--- NOTE | 2019-12-06 09:18 | History & Physical Report ---
Date of Service December 06, 2019 Assessment & Plan (1) Alcohol abuse: Patient is once again returned alcohol abuse he is in alcohol withdrawal with hypertension currently and some tremulousness. The patient will be put on gabapentin alcohol withdrawal as it did help him last time with PRN Ativan. He is once again counseled about alcohol cessation (2) Atypical chest pain: Do not feel this is cardiac in nature. It could be related to musculos keletal pain or even his alcoholism. Lipase was checked on admission is not elevated chest x-ray is without remark We did repeat troponins negative x2 (3) KAROLYN (acute kidney injury): Acute kidney injury is likely combination of dehydration from poor oral intake and his medications. Start medications have been held or delayed to try to improve his acute kidney injury as well as he will be given a banana bag hydration on presentation (4) Chronic systolic congestive heart failure: Patient is currently stable his BNP is elevated however he has no JVD no rales and negative chest x-ray. He is slightly dehydrated on presentation which resulted in his acute kidney injury subsequently he will have a banana bag given over the next 10 hours and he will start his Entresto this evening, it is unclear whether he may benefit from the spironolactone or if this should be held as he does present with some acute kidney injury (5) DVT prophylaxis: SCDs are used for DVT prevention History of Present Illness Primary Care Provider: BRENDA Cuellar 39-year-old male history of alcoholic cardiomyopathy presents with left lateral chest discomfort on her way to work today. In the emergency department patient had negative troponins x2 and an EKG without significant changes although baseline left bundle branch block. After speaking to the patient the real concern is the patient has once again resumed alcohol drinking to excess and is in alcohol withdrawal this morning. During his previous admission it was disclosed to him that we felt most of his cardiac issues were related to alcohol cardiomyopathy and urged him to stop drinking. The patient states he stopped drinking for about 2 weeks but once again re-presents after drinking for about 2 weeks straight. His significant other also uses alcohol. He denies other issues with fevers or chills infectious symptoms GI complaints or melena. He says he is a decreased urination he does have a mild acute kidney injury present on admission Allergies Allergy/AdvReac Type Severity Reaction Status Date / Time bee venom protein (honey bee) Allergy Unknown Nause,vomiting Verified 12/06/19 04:55 and dizziness Home Medications Home Medications Medication Instructions Recorded Confirmed Type albuterol sulfate [Ventolin HFA] 2 puffs INH Q6H PRN 10/26/19 12/06/19 History aspirin 81 mg PO QAM #90 tab 10/30/19 12/06/19 Rx escitalopram oxalate 20 mg PO DAILY #30 tab 10/30/19 12/06/19 Rx furosemide 20 mg PO QAM #60 tab 10/30/19 12/06/19 Rx spironolactone 25 mg PO QAM #60 tab 10/30/19 12/06/19 Rx metoprolol succinate 100 mg 100 mg PO QAM #30 tab 11/21/19 12/06/19 Rx tablet,extended release 24 hr sacubitril 49 mg-valsartan 51 mg 1 tab PO BID #60 tab 11/21/19 12/06/19 Rx tablet Past Med/Surg History Medical History (Updated 12/06/19 @ 09:22 by Omkar Martinez MD) Abdominal pain Alcohol abuse Asthma Bee sting allergy Neck muscle spasm Polysubstance abuse Surgical History History of ankle surgery Family History Father Alcohol abuse Mother Suicide and self-inflicted injury by firearm Social History Smoking Status: Current every day smoker Tobacco Type: Cigarettes Age Started Using Tobacco: 11; Cigarettes Per Day: 20; Second Hand Exposure: Yes; Hx Alcohol Use: Yes Alcohol type: hard liquor Hx Substance Use: No Preferred Language: Occitan Communication Ability: Effective Potato Spotter Required: No Beliefs That Will Affect Care: None Current Living Situation: Spouse and Family current occupational status: employed current occupation: [employer] Feels Safe at Home: Yes Assistive Devices: None Review of Systems Review of Systems: Mild distress and fatigue no headache, blurry or double vision no speech or swallowing issues Pleuritic left lateral chest pain, without pressure or palpitations no shortness of breath, cough or wheezes no abdominal pain, nausea or vomiting, diarrhea or constipation no dysuria, hematuria or frequency no focal joint pain or swelling no back pain, CVA tenderness or radicular pain no bruising, bleeding or rashes no focal signs of weakness or numbness or altered sensation Patient is anxious and tremulous Physical Exam Physical Exam: The patient appeared well nourished and normally developed. Vital signs as documented. Head exam is normocephalic atraumatic no scleral icterus Neck is without JVD, thyromegaly, or carotid bruits. Lungs are clear to auscultation, no focal loss of breath sounds Cardiac exam, Rhythm is regular.. No murmurs, rubs or gallops. Abdominal exam reveals normal bowel sounds, soft non tender, no masses Extremities are nonedematous and both pedal pulses are present Neurologic exam is alert and oriented, no focal loss of strength or sensation he is tremulous Skin is without bruises or rashes Psychologically is without concerns for anxiety or depression. Results & Data Results & Data ([facility]) Vital Signs (Past 12 Hours) Vital Signs Temp Pulse Resp BP Pulse Ox 12/06/19 08:31 72 19 96 12/06/19 08:30 69 19 141/91 H 96 12/06/19 08:00 75 19 123/71 12/06/19 07:31 71 18 96 12/06/19 07:30 70 19 135/86 96 12/06/19 07:01 71 17 95 12/06/19 07:00 78 20 114/83 95 12/06/19 06:31 70 20 94 12/06/19 06:30 68 19 122/78 96 12/06/19 06:17 75 14 115/81 95 12/06/19 06:00 68 20 95 12/06/19 05:30 66 19 94 12/06/19 05:00 66 20 95 12/06/19 04:55 66 16 98 12/06/19 04:27 98.1 F 76 18 109/69 95 Code Status & VTE Plan VTE Prophylaxis Plan VTE Prophylaxis will be ordered: Yes PG Care Time/CCT Total # of Minutes Spent Total Time Spent with Patient: Total time spent is greater than 50% in coordination of care (as documented) at patient's floor/unit and/or counseling patient: Coding Level of Care Code 98032 Initial Inpt Care Lvl 3 Diagnoses Alcohol abuse F10.10 Atypical chest pain R07.89 KAROLYN (acute kidney injury) N17.9 Chronic systolic congestive heart failure I50.22 DVT prophylaxis Z29.9
[2019-12-06] MEDS ORDERED: MoRPHine SULFATE 2 MG/ML CARP IV PRN (11:22)
[2019-12-06] MEDS ORDERED: ALBUTEROL HFA 8 GM INHALER INH PRN (11:22)
[2019-12-06] MEDS ORDERED: ONDANSETRON INJ 2 MG/ML 2 ML VIAL IV PRN (11:22)
[2019-12-06] MEDS ORDERED: GABAPENTIN 1200MG ALCOHOL WITHDRAWAL LOAD PO STA (11:22)
[2019-12-06] MEDS ORDERED: GABAPENTIN 600 MG TAB PO ONE (11:30)
[2019-12-06] MEDS ORDERED: MULTI-VITAMIN INFUSION 10 ML, THIAMINE HCL 100 MG, FOLIC ACID 1 MG in SODIUM CHLORIDE 0... IV ONE (12:00)
[2019-12-06] MEDS: ASPIRIN 81 MG ECTAB PO SCH (12:21)
[2019-12-06] MEDS: ESCITALOPRAM OXALATE 20 MG TAB PO SCH (12:21)
[2019-12-06] MEDS: THIAMINE HCL 100 MG TAB PO SCH (12:21)
[2019-12-06] MEDS: FOLIC ACID 1 MG TAB PO SCH (12:22)
[2019-12-06] MEDS: METOPROLOL SUCC 50MG EXT REL TAB PO SCH (12:22)
[2019-12-06] MEDS: GABAPENTIN 600 MG TAB PO SCH ×2 (17:25→23:32)
[2019-12-06] MEDS: LORazepam 0.5 MG/1 ML VIAL IV PRN ×2 (17:30→22:27)
[2019-12-06 19:49] LABS: Appearance Urine Clear (Clear); Bilirubin Urine Negative (Negative); Blood Urine Negative (Negative); Color Urine Dark Yellow; Glucose Urine UA Negative (Negative); Ketones Urine Trace (Negative); Leukocyte Esterase Urine Negative (Negative); Nitrite Urine Negative (Negative); Protein Urine Negative (Negative); Specific Gravity Urine 1.024 (1.000-1.030); Urobilinogen Urine Negative (Negative)
[2019-12-06] MEDS: SACUBITRIL-VALSARTAN 49/51 MG TAB PO SCH (20:08)
[2019-12-06 20:09] LABS: Amphetamines+Metham, Urine Neg (Neg); Barbiturates, Urine Neg (Neg); Benzodiazepine, Urine Neg (Neg); Cocaine, Urine Neg (Neg); MDMA (Ecstacy), Urine Neg (Neg); Methadone, Urine Neg (Neg); Opiate, Urine Neg (Neg); Phencyclidine, Urine Neg (Neg)
[2019-12-07 08:04] LABS: BUN Creatinine Ratio 19.5 (10-20); Calcium 8.9 mg/dl (8.5-10.1); Creatinine Clr Calc Pharmacy 113.9 ml/min; Est GFR (African American) 101.7; Est GFR (Non-African American) 87.7; Potassium 3.9 mmol/L (3.5-5.1)
[2019-12-07] MEDS: THIAMINE HCL 100 MG TAB PO SCH (08:25)
[2019-12-07] MEDS: SPIRONOLACTONE 25 MG TAB PO SCH (08:25)
[2019-12-07] MEDS: ESCITALOPRAM OXALATE 20 MG TAB PO SCH (08:25)
[2019-12-07] MEDS: FOLIC ACID 1 MG TAB PO SCH (08:26)
[2019-12-07] MEDS: FUROSEMIDE 20 MG TAB PO SCH (08:26)
[2019-12-07] MEDS: METOPROLOL SUCC 50MG EXT REL TAB PO SCH (08:26)
[2019-12-07] MEDS: ASPIRIN 81 MG ECTAB PO SCH (08:26)
[2019-12-07] MEDS: SACUBITRIL-VALSARTAN 49/51 MG TAB PO SCH ×2 (08:27→20:31)
[2019-12-07] MEDS: GABAPENTIN 600 MG TAB PO SCH ×2 (08:27→16:01)
[2019-12-07] MEDS: ACETAMINOPHEN 325 MG TAB PO PRN (08:38)
[2019-12-07] MEDS: LORazepam 0.5 MG/1 ML VIAL IV PRN ×3 (08:43→20:30)
[2019-12-07] MEDS: NALTREXONE HCL 50 MG TAB PO SCH (13:21)
--- NOTE | 2019-12-07 16:41 | Hospitalist Progress Note ---
Date of Service December 07, 2019 Assessment & Plan (1) Alcohol abuse: Patient is once again returned alcohol abuse he is in alcohol withdrawal with hypertension currently and some tremulousness. The patient will be put on gabapentin alcohol withdrawal as it did help him last time with PRN Ativan. He is once again counseled about alcohol cessation Patient be started on Librium scheduled 10 3 times daily low-dose Patient started naltrexone once a day 50 mg (2) Atypical chest pain: Do not feel this is cardiac in nature. It could be related to musculoskeletal pain or even his alcoholism. Lipase was checked on admission is not elevated chest x-ray is without remark repeat troponins negative x2 no further chest pain at this time (3) KAROLYN (acute kidney injury): Resolved (4) Chronic systolic congestive heart failure: Patient is currently stable his BNP is elevated however he has no JVD no rales and negative chest x-ray. Restart his Entresto and spironolactone (5) DVT prophylaxis: SCDs are used for DVT prevention Admission and Anticipated Discharge Date Admission Date: December 06, 2019 Subjective Patient is willing to take naltrexone. Patient has increased anxiety we will add some scheduled Librium to his gabapentin Review of Systems Review of Systems: Mild distress and fatigue no headache, blurry or double vision no speech or swallowing issues no chest pain, pressure or palpitations no shortness of breath, cough or wheezes no abdominal pain, mild nausea but no vomiting, no diarrhea or constipation no dysuria, hematuria or frequency no focal joint pain or swelling no back pain, CVA tenderness or radicular pain no bruising, bleeding or rashes no focal signs of weakness or numbness or altered sensation Complains of anxiety and tremulousness Physical Exam Physical Exam: The patient appeared well nourished and normally developed. Vital signs as documented. Head exam is normocephalic atraumatic no scleral icterus Neck is without JVD, thyromegaly, or carotid bruits. Lungs are clear to auscultation, no focal loss of breath sounds Cardiac exam, Rhythm is regular.. No murmurs, rubs or gallops. Abdominal exam reveals normal bowel sounds, soft non tender, no masses Extremities are nonedematous and both pedal pulses are present Neurologic exam is alert and oriented, no focal loss of strength or sensation Skin is without bruises or rashes Psychologically is with concerns for anxiety Results & Data Results & Data ([facility]) Vital Signs (Past 12 Hours) Vital Signs Temp Pulse Pulse Resp BP Pulse Ox 12/07/19 15:38 71 12/07/19 15:36 97.9 F 76 18 123/87 95 12/07/19 11:37 98.4 F 144 H 18 110/75 12/07/19 08:27 98.2 F 68 18 134/88 96 12/07/19 07:19 64 PG Care Time/CCT Total # of Minutes Spent Total Time Spent with Patient: Total time spent is greater than 50% in coordination of care (as documented) at patient's floor/unit and/or counseling patient: Coding Level of Care Code 88092 Subseq Hosp Care Lvl 2 Diagnoses Alcohol abuse F10.10 Atypical chest pain R07.89 KAROLYN (acute kidney injury) N17.9 Chronic systolic congestive heart failure I50.22 DVT prophylaxis Z29.9
[2019-12-08] MEDS: GABAPENTIN 600 MG TAB PO SCH ×2 (00:44→11:05)
[2019-12-08 06:53] LABS: Hematocrit (blood only) 40.7 % (42-52); Hemoglobin 13.6 g/dL (14.0-18.0); Mean Corpuscular Hemoglobin 31.3 pg (25-34); Mean Corpuscular Hgb Conc 33.4 g/dL (32-36); Mean Corpuscular Volume 93.8 fL (80-100); Mean Platelet Volume 9.4 fL (7.4-10.4); Platelet Count 134 K/uL (130-400); RDW Coefficient of Variation 12.4 % (11.5-14.5); RDW Standard Deviation 42.4 fL (36.4-46.3); Red Blood Count 4.34 M/uL (4.7-6.1); White Blood Count 3.01 K/uL (4.8-10.8)
[2019-12-08 07:29] LABS: BUN Creatinine Ratio 15.1 (10-20); Calcium 9.1 mg/dl (8.5-10.1); Creatinine Clr Calc Pharmacy 115.2 ml/min; Est GFR (African American) 104.1; Est GFR (Non-African American) 89.8
[2019-12-08] MEDS: NALTREXONE HCL 50 MG TAB PO SCH (08:13)
[2019-12-08] MEDS: ASPIRIN 81 MG ECTAB PO SCH (08:13)
[2019-12-08] MEDS: SACUBITRIL-VALSARTAN 49/51 MG TAB PO SCH ×2 (08:13→21:00)
[2019-12-08] MEDS: FUROSEMIDE 20 MG TAB PO SCH (08:14)
[2019-12-08] MEDS: THIAMINE HCL 100 MG TAB PO SCH (08:14)
[2019-12-08] MEDS: METOPROLOL SUCC 50MG EXT REL TAB PO SCH (08:15)
[2019-12-08] MEDS: FOLIC ACID 1 MG TAB PO SCH (08:16)
[2019-12-08] MEDS: SPIRONOLACTONE 25 MG TAB PO SCH (08:16)
[2019-12-08] MEDS: ESCITALOPRAM OXALATE 20 MG TAB PO SCH (08:17)
[2019-12-08] MEDS: LORazepam 0.5 MG/1 ML VIAL IV PRN ×3 (08:21→18:03)
--- NOTE | 2019-12-08 11:59 | Electrocardiogram Report ---
Test Reason : Blood Pressure : / mmHG Vent. Rate : 072 BPM Atrial Rate : 072 BPM P-R Int : 196 ms QRS Dur : 186 ms QT Int : 482 ms P-R-T Axes : 077 -04 172 degrees QTc Int : 527 ms Normal sinus rhythm Possible Left atrial enlargement Left bundle branch block Abnormal ECG When compared with ECG of 26-OCT-2019 15:24, QRS axis Shifted right T wave inversion now evident in Inferior leads T wave inversion less evident in Lateral leads Confirmed by Ba Kyle ([id number]) on 12/08/2019 11:58:50 AM Referred By: REFERRED SELF Confirmed By:Ba Kyle
--- NOTE | 2019-12-08 12:36 | Electrocardiogram Report ---
Test Reason : Blood Pressure : / mmHG Vent. Rate : 060 BPM Atrial Rate : 069 BPM P-R Int : 194 ms QRS Dur : 184 ms QT Int : 504 ms P-R-T Axes : 068 135 -25 degrees QTc Int : 504 ms Normal sinus rhythm with sinus arrhythmia Right axis deviation Left bundle branch block Abnormal ECG When compared with ECG of 06-DEC-2019 04:34, (unconfirmed) QRS axis Shifted right T wave inversion more evident in Inferior leads T wave inversion no longer evident in Lateral leads Confirmed by Ba Kyle ([id number]) on 12/08/2019 12:35:39 PM Referred By: REFERRED SELF Confirmed By:Ba Kyle
--- NOTE | 2019-12-08 15:26 | Hospitalist Progress Note ---
Date of Service December 08, 2019 Assessment & Plan (1) Alcohol abuse: Patient is once again returned alcohol abuse he is in alcohol withdrawal with hypertension currently and some tremulousness. The patient will be put on gabapentin alcohol withdrawal as it did help him last time with PRN Ativan. He is once again counseled about alcohol cessation Patient will have Librium increased to 25 3 times daily Patient tolerated started naltrexone once a day 50 mg (2) Atypical chest pain: Do not feel this is cardiac in nature. It could be related to musculoskeletal pain or even his alcoholism. Lipase was checked on admission is not elevated chest x-ray is without remark repeat troponins negative x2 no further chest pain at this time EKG was checked in the morning of 12/07 which confirmed continue left bundle branch block, troponin was checked also which was negative (3) KAROLYN (acute kidney injury): Resolved (4) Chronic systolic congestive heart failure: Patient is currently stable his BNP is elevated however he has no JVD no rales and negative chest x-ray. Restart his Entresto and spironolactone blood pressure is low but patient is asymptomatic (5) DVT prophylaxis: SCDs are used for DVT prevention Admission and Anticipated Discharge Date Admission Date: December 06, 2019 Subjective Patient is tolerating naltrexone still has some tremulousness with the added Librium dose will be increased on the evening of 12/07 continuing gabapentin Review of Systems Review of Systems: Mild distress and fatigue no headache, blurry or double vision no speech or swallowing issues no chest pain, pressure or palpitations no shortness of breath, cough or wheezes no abdominal pain, mild nausea but no vomiting, no diarrhea or constipation no dysuria, hematuria or frequency no focal joint pain or swelling no back pain, CVA tenderness or radicular pain no bruising, bleeding or rashes no focal signs of weakness or numbness or altered sensation Complains of anxiety and tremulousness Physical Exam Physical Exam: The patient appeared well nourished and normally developed. Vital signs as documented. Head exam is normocephalic atraumatic no scleral icterus Neck is without JVD, thyromegaly, or carotid bruits. Lungs are clear to auscultation, no focal loss of breath sounds Cardiac exam, Rhythm is regular.. No murmurs, rubs or gallops. Abdominal exam reveals normal bowel sounds, soft non tender, no masses Extremities are nonedematous and both pedal pulses are present Neurologic exam is alert and oriented, no focal loss of strength or sensation Skin is without bruises or rashes Psychologically is with concerns for anxiety Results & Data Results & Data ([facility]) Vital Signs (Past 12 Hours) Vital Signs Temp Pulse Pulse Resp BP BP Pulse Ox 12/08/19 15:17 73 12/08/19 15:09 97.9 F 77 18 101/68 98 12/08/19 11:25 98.1 F 75 18 105/67 97 12/08/19 07:20 54 L 12/08/19 07:18 97.5 F L 96 H 18 110/76 96 12/08/19 04:31 97.7 F 88 15 100/70 96 PG Care Time/CCT Total # of Minutes Spent Total Time Spent with Patient: Total time spent is greater than 50% in coordination of care (as documented) at patient's floor/unit and/or counseling patient: Coding Level of Care Code 99739 Subseq Hosp Care Lvl 2 Diagnoses Alcohol abuse F10.10 Atypical chest pain R07.89 KAROLYN (acute kidney injury) N17.9 Chronic systolic congestive heart failure I50.22 DVT prophylaxis Z29.9
[2019-12-08] MEDS: ACETAMINOPHEN 325 MG TAB PO PRN (18:09)
[2019-12-08] MEDS ORDERED: LORazepam 1 MG/2 ML VIAL IV STA (20:34)
[2019-12-08] MEDS ORDERED: LORazepam 1 MG/2 ML VIAL IV PRN (20:34)
[2019-12-08] MEDS: chlordiazePOXIDE HCl 25 MG CAP PO SCH (20:59)
[2019-12-09] MEDS: GABAPENTIN 600 MG TAB PO SCH (00:05)
[2019-12-09 06:55] LABS: Marijuana Quant, GCMS Urine 160 ng/mL (<5)
[2019-12-09] MEDS: METOPROLOL SUCC 50MG EXT REL TAB PO SCH (08:07)
[2019-12-09] MEDS: chlordiazePOXIDE HCl 25 MG CAP PO SCH (08:07)
[2019-12-09] MEDS: THIAMINE HCL 100 MG TAB PO SCH (08:07)
[2019-12-09] MEDS: NALTREXONE HCL 50 MG TAB PO SCH (08:07)
[2019-12-09] MEDS: FUROSEMIDE 20 MG TAB PO SCH (08:08)
[2019-12-09] MEDS: FOLIC ACID 1 MG TAB PO SCH (08:08)
[2019-12-09] MEDS: ESCITALOPRAM OXALATE 20 MG TAB PO SCH (08:08)
[2019-12-09] MEDS: SPIRONOLACTONE 25 MG TAB PO SCH (08:08)
[2019-12-09] MEDS: ASPIRIN 81 MG ECTAB PO SCH (08:08)
[2019-12-09] MEDS: SACUBITRIL-VALSARTAN 49/51 MG TAB PO SCH (08:08)
[2019-12-09 08:14] LABS: BUN Creatinine Ratio 16.9 (10-20); Calcium 9.7 mg/dl (8.5-10.1); Creatinine Clr Calc Pharmacy 105.5 ml/min; Est GFR (African American) 94.1; Est GFR (Non-African American) 81.2; Potassium 3.6 mmol/L (3.5-5.1)
[2019-12-09] MEDS: LORazepam 0.5 MG/1 ML VIAL IV PRN ×2 (08:58→14:07)
--- NOTE | 2019-12-09 14:01 | Discharge Summary ---
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 In the emergency department patient had negative troponins x2 and an EKG without significant changes although baseline left bundle branch block. After speaking to the patient the real concern is the patient has once again resumed alcohol drinking to excess and is in alcohol withdrawal this morning. During his previous admission it was disclosed to him that we felt most of his cardiac issues were related to alcohol cardiomyopathy and urged him to stop drinking. The patient states he stopped drinking for about 2 weeks but once again re-presents after drinking for about 2 weeks straight. His significant other also uses alcohol. He denies other issues with fevers or chills infectious symptoms GI complaints or melena. He says he is a decreased urination he does have a mild acute kidney injury present on admission Principal Diagnosis alcohol withdrawal chest pain Discharge Exam The patient appeared well Vital signs as documented. Lungs are clear to auscultation and appear unlabored Cardiac exam, Rhythm is regular.. No murmurs, rubs or gallops. Abdominal exam reveals normal bowel sounds, soft non tender, no masses Extremities are nonedematous and both pedal pulses are normal. Neurologic exam is alert and oriented, no focal loss of strength or sensation Skin is without bruises or rashes Psychologically is without concerns for anxiety or depression. Discharge Data Allergies Allergy/AdvReac Type Severity Reaction Status Date / Time bee venom protein (honey bee) Allergy Unknown Nause,vomiting Verified 12/06/19 04:55 and dizziness Consultations 12/06/19 07:19 ED Decision to Admit Stat Hospital Course (1) Alcohol abuse: Patient is once again returned alcohol abuse he is in alcohol withdrawal with hypertension currently and some tremulousness. The patient will be on tapered gabapentin and Librium he is once again counseled about alcohol cessation Patient tolerated started naltrexone once a day 50 mg, he was given information on discharge about this medication and asked to follow-up with his family doctor to discuss (2) Atypical chest pain: Do not feel this is cardiac in nature. It could be related to musculoskeletal pain or even his alcoholism. Lipase was checked on admission is not elevated chest x-ray is without remark repeat troponins negative x2 no further chest pain at this time EKG was checked in the morning of 12/07 which confirmed continue left bundle branch block, troponin was checked also which was negative (3) KAROLYN (acute kidney injury): Resolved (4) Chronic systolic congestive heart failure: Patient is currently stable his BNP is elevated however he has had no JVD no rales and negative chest x-ray. Continue his Entresto and spironolactone (5) DVT prophylaxis: SCDs are used for DVT prevention Total Time Total Time Spent Total Time Spent (In Minutes): It required greater than 30 minutes to prepare this patient for discharge Discharge Plan Discharge Items Patient Disposition: Home - Self-Care Reason For Visit: ALCOHOL WITHDRAWAL Discharge Diagnosis: alcohol withdrawal Activity: Resume your previous activity Non-emergency contact: Primary Care Provider and Hand Tapper Call non-emergency contact if: you have any medication questions and your symptoms worsen Follow-up/Referrals: Felipe Salter CRNP [Primary Care Provider] - Nevin Moore PA-C [Physician Construction Secretary] - 12/12/19 2:00 pm Diet: Regular Addtl Attending Provider Instructions: absolutely abstain from alcohol please keep you follow up appointments please help to encourage your significant other to remove all alcohol from your house Pending Studies at Discharge: No Stand-Alone Forms: My [facility] [employer], Smoking Cessation Medications and DC Order Prescriptions: New naltrexone 50 mg Tablet 50 mg PO DAILY Qty: 30 RF: 0 chlordiazepoxide HCl 25 mg Capsule 25 mg PO TID Qty: 12 RF: 0 gabapentin [Neurontin] 300 mg capsule 300 mg PO BID Qty: 21 RF: 0 Continued metoprolol succinate 100 mg tablet extended release 24 hr 100 mg PO QAM Qty: 30 RF: 1 Entresto 49-51 mg tablet 1 tab PO BID Qty: 60 RF: 1 albuterol sulfate [Ventolin HFA] 90 mcg/actuation HFA aerosol inhaler 2 puffs INH Q6H PRN (Reason: Shortness Of Breath Or Wheezing) RF: 0 spironolactone 25 mg Tablet 25 mg PO QAM Qty: 60 RF: 4 aspirin 81 mg Tablet,Delayed Release (Dr/Ec) 81 mg PO QAM Qty: 90 RF: 0 furosemide 20 mg Tablet 20 mg PO QAM Qty: 60 RF: 4 escitalopram oxalate 20 mg tablet 20 mg PO DAILY Qty: 30 RF: 4 Discharge Orders: Discharge Order (Routine); Ordered 12/09/19 Ordered By: Omkar Dia/Other Patient Handouts: Naltrexone tablets Admission Data Admit Date/Time: 12/06/19 09:06 Attending Provider: Omkar Martinez Admit Provider: Omkar Martinez Primary Care Provider: Felipe Salter Other Providers: Omkar Martinez Coding Level of Care Code D/C Day Management >30 mins Diagnoses Alcohol abuse F10.10 Atypical chest pain R07.89 KAROLYN (acute kidney injury) N17.9 Chronic systolic congestive heart failure I50.22 DVT prophylaxis Z29.9
--- NOTE | 2019-12-09 14:02 | Discharge Summary ---
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 In the emergency department patient had negative troponins x2 and an EKG without significant changes although baseline left bundle branch block. After speaking to the patient the real concern is the patient has once again resumed alcohol drinking to excess and is in alcohol withdrawal this morning. During his previous admission it was disclosed to him that we felt most of his cardiac issues were related to alcohol cardiomyopathy and urged him to stop drinking. The patient states he stopped drinking for about 2 weeks but once again re-presents after drinking for about 2 weeks straight. His significant other also uses alcohol. He denies other issues with fevers or chills infectious symptoms GI complaints or melena. He says he is a decreased urination he does have a mild acute kidney injury present on admission Discharge Data Allergies Allergy/AdvReac Type Severity Reaction Status Date / Time bee venom protein (honey bee) Allergy Unknown Nause,vomiting Verified 12/06/19 04:55 and dizziness Consultations 12/06/19 07:19 ED Decision to Admit Stat Hospital Course (1) Alcohol abuse: Patient is once again returned alcohol abuse he is in alcohol withdrawal with hypertension currently and some tremulousness. The patient will be on tapered gabapentin and Librium he is once again counseled about alcohol cessation Patient tolerated started naltrexone once a day 50 mg, he was given information on discharge about this medication and asked to follow-up with his family doctor to discuss (2) Atypical chest pain: Do not feel this is cardiac in nature. It could be related to musculoskeletal pain or even his alcoholism. Lipase was checked on admission is not elevated chest x-ray is without remark repeat troponins negative x2 no further chest pain at this time EKG was checked in the morning of 12/07 which confirmed continue left bundle branch block, troponin was checked also which was negative (3) KAROLYN (acute kidney injury): Resolved (4) Chronic systolic congestive heart failure: Patient is currently stable his BNP is elevated however he has had no JVD no rales and negative chest x-ray. Continue his Entresto and spironolactone (5) DVT prophylaxis: SCDs are used for DVT prevention Discharge Plan Discharge Items Patient Disposition: Home - Self-Care Reason For Visit: ALCOHOL WITHDRAWAL Discharge Diagnosis: alcohol withdrawal Activity: Resume your previous activity Non-emergency contact: Primary Care Provider and Flight Attendant Ramp Call non-emergency contact if: you have any medication questions and your symptoms worsen Follow-up/Referrals: Felipe Salter, BRENDA [Primary Care Provider] - Nevin Moore PA-C [Physician Business Banking Representative] - 12/12/19 2:00 pm Diet: Regular Addtl Attending Provider Instructions: absolutely abstain from alcohol please keep you follow up appointments please help to encourage your significant other to remove all alcohol from your house Pending Studies at Discharge: No Stand-Alone Forms: My [facility] [employer], Smoking Cessation Medications and DC Order Prescriptions: New naltrexone 50 mg Tablet 50 mg PO DAILY Qty: 30 RF: 0 chlordiazepoxide HCl 25 mg Capsule 25 mg PO TID Qty: 12 RF: 0 gabapentin [Neurontin] 300 mg capsule 300 mg PO BID Qty: 21 RF: 0 Continued metoprolol succinate 100 mg tablet extended release 24 hr 100 mg PO QAM Qty: 30 RF: 1 Entresto 49-51 mg tablet 1 tab PO BID Qty: 60 RF: 1 albuterol sulfate [Ventolin HFA] 90 mcg/actuation HFA aerosol inhaler 2 puffs INH Q6H PRN (Reason: Shortness Of Breath Or Wheezing) RF: 0 spironolactone 25 mg Tablet 25 mg PO QAM Qty: 60 RF: 4 aspirin 81 mg Tablet,Delayed Release (Dr/Ec) 81 mg PO QAM Qty: 90 RF: 0 furosemide 20 mg Tablet 20 mg PO QAM Qty: 60 RF: 4 escitalopram oxalate 20 mg tablet 20 mg PO DAILY Qty: 30 RF: 4 Discharge Orders: Discharge Order (Routine); Ordered 12/09/19 Ordered By: Omkar Dia/Other Patient Handouts: Naltrexone tablets Admission Data Admit Date/Time: 12/06/19 09:06 Attending Provider: Omkar Martinez Admit Provider: Omkar Martinez Primary Care Provider: Felipe Salter Other Providers: Omkar Martinez Coding Diagnoses Alcohol abuse F10.10 Atypical chest pain R07.89 KAROLYN (acute kidney injury) N17.9 Chronic systolic congestive heart failure I50.22 DVT prophylaxis Z29.9
[2019-12-10] MEDS ORDERED: GABAPENTIN 600 MG TAB PO SCH
--- NOTE | 2019-12-10 07:37 | Electrocardiogram Report ---
Test Reason : Blood Pressure : / mmHG Vent. Rate : 057 BPM Atrial Rate : 057 BPM P-R Int : 194 ms QRS Dur : 186 ms QT Int : 516 ms P-R-T Axes : 038 -27 146 degrees QTc Int : 502 ms Sinus bradycardia Left bundle branch block Abnormal ECG When compared with ECG of 07-DEC-2019 06:32, (unconfirmed) This tracing is similar to 12/06/2019 and 10/26/2019 QRS axis Shifted left T wave inversion no longer evident in Inferior leads T wave inversion now evident in Lateral leads Confirmed by Ba Kyle ([id number]) on 12/10/2019 7:37:03 AM Referred By: REFERRED SELF Confirmed By:Ba Kyle
--- NOTE | 2019-12-10 07:39 | Electrocardiogram Report ---
Test Reason : Blood Pressure : / mmHG Vent. Rate : 068 BPM Atrial Rate : 068 BPM P-R Int : 184 ms QRS Dur : 180 ms QT Int : 482 ms P-R-T Axes : 073 -38 133 degrees QTc Int : 512 ms Normal sinus rhythm Left axis deviation Left bundle branch block Abnormal ECG When compared with ECG of 08-DEC-2019 06:35, (unconfirmed) No significant change was found Confirmed by Ba Kyle ([id number]) on 12/10/2019 7:39:19 AM Referred By: REFERRED SELF Confirmed By:Ba Kyle
== END 2019-12-09 14:17 | disposition home or self-care (01) | DRG 897 ==
LOC: ED 04:24 → 2N 09:06

== ENCOUNTER 2021-08-09 18:53 | Observation (INO) ==
[2021-08-09 19:36] LABS: Basophils # (auto) 0.04 K/uL (0-0.2); Basophils % (auto) 0.6 %; Eosinophils # (auto) 0.06 K/uL (0-0.5); Eosinophils % (auto) 0.9 %; Hemoglobin 12.8 g/dL (14.0-18.0); Immature Granulocytes # (auto) 0.01 K/uL (0.00-0.02); Immature Granulocytes % (auto) 0.2 %; Lymphocytes # (auto) 1.31 K/uL (1.2-3.4); Lymphocytes % (auto) 20.1 %; Mean Corpuscular Hgb Conc 34.6 g/dL (32-36); Mean Corpuscular Volume 86.9 fL (80-100); Mean Platelet Volume 9.4 fL (7.4-10.4); Monocytes # (auto) 0.49 K/uL (0.11-0.59); Monocytes % (auto) 7.5 %; Neutrophils # (auto) 4.62 K/uL (1.4-6.5); Neutrophils % (auto) 70.7 %; Platelet Count 166 K/uL (130-400); RDW Coefficient of Variation 12.5 % (11.5-14.5); RDW Standard Deviation 39.4 fL (36.4-46.3); Red Blood Count 4.26 M/uL (4.7-6.1); White Blood Count 6.53 K/uL (4.8-10.8)
--- NOTE | 2021-08-09 19:42 | CT Scan Report ---
HEAD CT NONCONTRAST CT DOSE: 537.48 mGy.cm HISTORY: seizure like episodes TECHNIQUE: Multiaxial CT images of the head were performed without the use of intravenous contrast. A utomated exposure control was utilized for this study. A dose lowering technique was utilized adheri ng to the principles of ALARA. Comparison: None. Findings: The paranasal sinuses and mastoid air cells are clear. The calvarium and skull base are int act. The ventricles and sulci are within normal limits. There is no mass, hematoma, midline shift, or acute infarct. Impression: No acute intracranial abnormality. ACT 112: Negative or not required by law. Electronically signed by: Vik Edmonds M.D. 08/09/2021 7:40 PM
[2021-08-09 19:55] LABS: INR 1.1 (0.9-1.1); Partial Thromboplastin Ratio 0.7; Partial Thromboplastin Time 20.2 Seconds (21.0-31.0); Prothrombin Time 11.7 Seconds (9.0-12.0)
--- NOTE | 2021-08-09 19:56 | XRay Report ---
XR chest 1V portable HISTORY: Dyspnea COMPARISON: Chest 08/23/2020. FINDINGS: The lungs are clear. Cardiac silhouette is normal in size. No pleural effusions. No pneumot horax. IMPRESSION: No acute process. ACT 112: Negative or not required by law. Electronically signed by: Vik Edmonds M.D. 08/09/2021 7:55 PM
[2021-08-09 20:07] LABS: Influenza A virus by PCR Negative (Neg); Influenza B virus by PCR Negative (Neg); RSV by PCR Negative (Neg); SARS CoV2 RNA(COVID-19) InHosp NEGATIVE (Negative)
[2021-08-09 20:13] LABS: Troponin I High Sensitivity 4.8 pg/ml (0-20)
[2021-08-09 20:19] LABS: Albumin Level 4.5 gm/dl (3.4-5.0); BUN Creatinine Ratio 18.3 (10-20); Bilirubin,Total 0.4 mg/dl (0.2-1.0); Calcium 9.4 mg/dl (8.5-10.1); Creatinine Clr Calc Pharmacy 107.9 ml/min; Est GFR (African American) 102.2 ml/min; Est GFR (Non-African American) 88.1 ml/min; Globulin 2.3 gm/dl (2.5-4.0); Magnesium 2.1 mg/dl (1.7-2.4); Potassium 3.7 mmol/L (3.5-5.1); Total Protein 6.8 gm/dl (6.0-8.3)
--- NOTE | 2021-08-09 21:37 | History & Physical Report ---
Date of Service August 09, 2021 Assessment & Plan (1) Near syncope: Plan: Near syncope- Likely due to hypoglycemic episodes, due to self-admitted poor diet. Symptoms invariably occur when he is not eating well that day, as in today, when he skipped breakfast, and symptoms were improved by eating a candy bar He does have significant history of dilated cardiomyopathy, and will need to be monitored for possible arrhythmia as cause as well. (2) Bradycardia: Plan: Bradycardia/chronic systolic CHF, dilated cardiomyopathy, LBBB- The patient will be admitted to telemetry for serial cardiac enzymes, serial EKG's, cardiac rhythm monitoring and a 2-D echocardiogram with Dopplers. May need to have beta-anoop decreased, presently on metoprolol succinate 100 mg daily in a.m. Decrease metoprolol succinate to 75 mg every morning, and get close follow-up with cardiology His beta-anoop will also predispose him to hypoglycemia unawareness, which makes it more important to be improved about his diet He did run out of his Entresto 1 month ago, and for now will remain off Continue furosemide (3) Tobacco dependence: Plan: Cessation counseling (4) Chronic systolic congestive heart failure: Plan: See above (5) Dilated cardiomyopathy: Plan: See above (6) Left bundle branch block: Plan: See above (7) Asthma: Plan: Continue inhalers (8) History of alcohol abuse: Plan: Continue to encourage sobriety History of Present Illness Chief Complaint: The patient presents to the emergency department with several weeks of symptoms of variable duration of 30-60 minutes of lightheadedness, dizziness and feelings of near syncope, with most recent episode today in route to a social event. Primary Care Provider: BRENDA Cuellar The patient is a 40-year-old male with a past medical history including dilated cardiomyopathy with improved ejection fraction from 15-20 up to 55-60%, chronic systolic CHF, history of alcohol abuse with continued sobriety, tobacco abuse, left bundle branch block and asthma. Upon review of patient's symptoms as noted above, and previous episodes, they tend to occur when he has not been eating well, such as today when he skipped breakfast. He reports his symptoms today were improved after eating a chocolate bar, and usually improve with some type of oral intake. Symptoms may occur with or without activity, and usually are preceded by a sensation of warmth and blood rushing to his head. Allergies Allergy/AdvReac Type Severity Reaction Status Date / Time bee venom protein (honey bee) Allergy Unknown Nause,vomiting Verified 08/09/21 20:05 and dizziness Home Medications Medication Instructions Recorded Confirmed Type escitalopram oxalate 20 mg tablet 20 mg PO DAILY #30 tab 01/01/21 08/09/21 Rx metoprolol succinate 100 mg 100 mg PO QAM #90 tab 01/11/21 08/09/21 Rx tablet,extended release 24 hr albuterol sulfate 90 mcg/actuation 2 puff INH Q6H PRN #8.5 g 02/12/21 08/09/21 Rx aerosol inhaler (Ventolin HFA) fluticasone furoate 100 1 inh INHALATION DAILY #60 ea 02/12/21 08/09/21 Rx mcg-vilanterol 25 mcg/dose inhalation powder (Breo Ellipta) furosemide 20 mg tablet 20 mg PO BID 08/09/21 08/09/21 History Past Med/Surg History Medical History Alcohol abuse Asthma Bee sting allergy Chronic systolic congestive heart failure Dilated cardiomyopathy Left bundle branch block Polysubstance abuse Surgical History History of ankle surgery Family History Father Alcohol abuse Mother Suicide and self-inflicted injury by firearm Social History Smoking Status: Former smoker Tobacco Type: Cigarettes Age Started Using Tobacco: 11; Cigarettes Per Day: 15; Smoking End Date: 2019; Second Hand Exposure: No; Do You Dip or Chew Tobacco: No; Tobacco Cessation Education Requested by Patient: No Hx Alcohol Use: No Hx Substance Use: No Preferred Language: Malay Communication Ability: Effective Transmission Design Engineer Required: No Beliefs That Will Affect Care: None Current Living Situation: Alone current occupational status: employed current occupation: [employer] Feels Safe at Home: Yes Safety Concerns: Feels Safe At This Time Assistive Devices: None Review of Systems Review of Systems: The patient denies cough, lower extremity swelling, sore throat, fevers, chills, sweats, vomiting, diarrhea , constipation, abdominal pain, pelvic pain, blood in urine or stool, dysuria, urinary frequency or urgency, memory loss, loss of consciousness, rash, abnormal bruising or bleeding, imbalance, focal or generalized weakness, numbness or tingling in arms or legs, generalized arthralgias or myalgias, back or neck pain The review of systems is otherwise negative other than for that already noted above, and at least 10 systems have been reviewed. Physical Exam Physical Exam: The patient is awake, alert and oriented 3, well developed and well nourished, normocephalic and atraumatic, lying in bed and in no acute distress. HEENT--PERRL, EOMI, mucous membranes and oropharynx moist. Neck--supple. No JVD. No bruits. Thyroid normal, trachea midline, no adenopathy. Heart--normal S1 and S2. No murmurs, rubs or gallops. Lungs--clear bilaterally, no respiratory distress, no accessory muscle use. Abdomen--normal bowel sounds and soft. Nontender. Nondistended, no hernias or masses, no organomegaly. Extremities--no cyanosis or clubbing. No edema. There are good distal pulses b/l. Dermatologic--normal skin turgor, normal color, no abnormal lymph nodes, no rash. Neurologic--cranial nerves II through XII grossly intact. Rheumatologic--normal range of motion. Psychiatric--normal affect. Results & Data Results & Data ([facility]) Vital Signs (Past 12 Hours) Vital Signs Temp Pulse Pulse Resp BP BP Pulse Ox 08/09/21 21:18 52 L 18 123/68 99 08/09/21 19:45 35.6 C L 50 L 20 109/69 97 08/09/21 19:40 97 08/09/21 19:17 46 L 20 97 08/09/21 19:11 44 L 20 109/69 97 Laboratory Results Laboratory Results WBC 6.53 K/uL (4.8-10.8) 08/09/21 19:09 RBC 4.26 M/uL (4.7-6.1) L 08/09/21 19:09 Hgb 12.8 g/dL (14.0-18.0) L 08/09/21 19:09 Hct 37.0 % (42-52) L 08/09/21 19:09 MCV 86.9 fL (80-100) 08/09/21 19:09 MCH 30.0 pg (25-34) 08/09/21 19:09 MCHC 34.6 g/dL (32-36) 08/09/21 19:09 RDW Std Deviation 39.4 fL (36.4-46.3) 08/09/21 19:09 RDW Coeff of Connor 12.5 % (11.5-14.5) 08/09/21 19:09 Plt Count 166 K/uL (130-400) 08/09/21 19:09 MPV 9.4 fL (7.4-10.4) 08/09/21 19:09 Immature Gran % (Auto) 0.2 % 08/09/21 19:09 Neut % (Auto) 70.7 % 08/09/21 19:09 Lymph % (Auto) 20.1 % 08/09/21 19:09 [place] % (Auto) 7.5 % 08/09/21 19:09 Eos % (Auto) 0.9 % 08/09/21 19:09 Baso % (Auto) 0.6 % 08/09/21 19:09 Neut # (Auto) 4.62 K/uL (1.4-6.5) 08/09/21 19:09 Lymph # (Auto) 1.31 K/uL (1.2-3.4) 08/09/21 19:09 [place] # (Auto) 0.49 K/uL (0.11-0.59) 08/09/21 19:09 Eos # (Auto) 0.06 K/uL (0-0.5) 08/09/21 19:09 Baso # (Auto) 0.04 K/uL (0-0.2) 08/09/21 19:09 Immature Gran # (Auto) 0.01 K/uL (0.00-0.02) 08/09/21 19:09 PT 11.7 Seconds (9.0-12.0) 08/09/21 19:09 INR 1.1 (0.9-1.1) 08/09/21 19:09 APTT 20.2 Seconds (21.0-31.0) L 08/09/21 19:09 PTT Ratio 0.7 08/09/21 19:09 Sodium 136 mmol/L (136-145) 08/09/21 19:09 Potassium 3.7 mmol/L (3.5-5.1) 08/09/21 19:09 Chloride 101 mmol/L (98-107) 08/09/21 19:09 Carbon Dioxide 28 mmol/L (21-32) 08/09/21 19:09 Anion Gap 7 (3-11) 08/09/21 19:09 BUN 19 mg/dl (6-23) 08/09/21 19:09 Creatinine 1.04 mg/dl (0.6-1.4) 08/09/21 19:09 Est Cr Clr Drug Dosing 107.9 ml/min 08/09/21 19:09 Est GFR ( Amer) 102.2 ml/min 08/09/21 19:09 Est GFR (Non-Af Amer) 88.1 ml/min 08/09/21 19:09 BUN/Creatinine Ratio 18.3 (10-20) 08/09/21 19:09 Glucose 128 mg/dl (70-99(Fasting)) H 08/09/21 19:09 Calcium 9.4 mg/dl (8.5-10.1) 08/09/21 19:09 Magnesium 2.1 mg/dl (1.7-2.4) 08/09/21 19:09 Total Bilirubin 0.4 mg/dl (0.2-1.0) 08/09/21 19:09 AST 28 U/L (13-39) 08/09/21 19:09 ALT 44 U/L (7-52) 08/09/21 19:09 Alkaline Phosphatase 55 U/L (34-104) 08/09/21 19:09 Troponin I High Sens 5.1 pg/ml (0-20) 08/09/21 21:11 Total Protein 6.8 gm/dl (6.0-8.3) 08/09/21 19:09 Albumin 4.5 gm/dl (3.4-5.0) 08/09/21 19:09 Globulin 2.3 gm/dl (2.5-4.0) L 08/09/21 19:09 Albumin/Globulin Ratio 2.0 (0.9-2) 08/09/21 19:09 Ethyl Alcohol mg/dL < 10.0 mg/dl (<10.0) 08/09/21 19:09 SARS-CoV-2 (PCR) NEGATIVE (Negative) 08/09/21 19:15 Influenza Type A (PCR) Negative (Neg) 08/09/21 19:15 Influenza Type B (PCR) Negative (Neg) 08/09/21 19:15 RSV (RT-PCR) Negative (Neg) 08/09/21 19:15 Impressions Chest X-Ray 08/09/21 19:12 XR chest 1V portable HISTORY: Dyspnea COMPARISON: Chest 08/23/2020. FINDINGS: The lungs are clear. Cardiac silhouette is normal in size. No pleural effusions. No pneumothorax. IMPRESSION: No acute process. ACT 112: Negative or not required by law. Electronically signed by: Vik Edmonds M.D. 08/09/2021 7:[address] 08/09/21 19:[address] DOSE: 537.48 mGy.cm HISTORY: seizure like episodes TECHNIQUE: Multiaxial CT images of the head were performed without the use of intravenous contrast. Automated exposure control was utilized for this study. A dose lowering technique was utilized adhering to the principles of ALARA. Comparison: None. Findings: The paranasal sinuses and mastoid air cells are clear. The calvarium and skull base are intact. The ventricles and sulci are within normal limits. There is no mass, hematoma, midline shift, or acute infarct. Impression: No acute intracranial abnormality. ACT 112: Negative or not required by law. Electronically signed by: Vik Edmonds M.D. 08/09/2021 7:40 PM Code Status & VTE Plan Code Status Full code VTE Prophylaxis Plan VTE Prophylaxis will be ordered: Yes PG Care Time/CCT Total # of Minutes Spent Total Time Spent with Patient: Total time spent is greater than 50% in coordination of care (as documented) at patient's floor/unit and/or counseling patient: Coding Level of Care Code INT OBSERVATION CARE 70M LVL 3 Diagnoses Near syncope R55 Bradycardia R00.1 Tobacco dependence F17.200 Chronic systolic congestive heart failure I50.22 Dilated cardiomyopathy I42.0 Left bundle branch block I44.7 Asthma J45.909 History of alcohol abuse F10.11
--- NOTE | 2021-08-09 21:41 | Emergency Department Note ---
Impression & Plan Near syncope, Dilated cardiomyopathy, Bradycardia ED Provider Note CHIEF COMPLAINT: Syncopal episodes HISTORY OF PRESENT ILLNESS: This 40-year-old male patient with a history of nonischemic cardiomyopathy presents to the emergency department with several weeks of intermittent episodes of diaphoresis, syncope versus near syncope that last anywhere from several minutes to 30 to 40 minutes until he is able to completely recover. Patient states his heart rate does typically run low. These episodes can happen at rest or during exertion. He does tend to become short of breath but does not usually experience any palpitations or chest pain. Patient states he has a history of alcohol abuse. The patient did stop drinking alcohol however has not been able to afford his Entresto. He has not seen his loan associate since 02/2021. Patient denies any recent illness, fever, cough, abdominal pain, vomiting or diarrhea. REVIEW OF SYSTEMS: A review of systems was performed with positives and pertinent negatives listed in the history of present illness. 10 systems were reviewed and are otherwise negative. ALLERGIES: see below MEDICATIONS: see below PMH: see below SOCIAL HISTORY: see below DDx: Vasovagal event, dehydration, infection, hypoglycemia, electrolyte abnormalities, cardiac sources, intracerebral event, pulmonary embolism, seizure, toxicologic, neurologic, as well as other pathologies. PHYSICAL EXAM: Vital signs reviewed. General: Well-appearing 40 yo male, in no significant distress. HEENT: No scleral icterus, PERRLA, neck supple. Atraumatic. Cardiovascular: Distant heart tones, regular. Pulmonary: Rhonchi to the bases to auscultation bilaterally, normal work of breathing. Abdomen: Soft, nontender, nondistended, positive bowel sounds. Musculoskeletal: Atraumatic, no peripheral edema. Neurologic: Patient awake alert and oriented x 3, speech is clear Skin: Warm, dry, no rash EMERGENCY DEPARTMENT COURSE/MDM: This patient was evaluated and appeared to be in no significant distress. IV access was obtained and laboratory work was drawn. Patient was placed on a monitor technician and noted to be in a sinus bradycardia. Patient's EKG reveals T wave inversions in the inferior and anterior leads when compared to previous. Laboratory work is fairly reassuring with a negative troponin. Given the patient's noncompliance with his medications and lack of regular follow-up with cardiology, I am concerned that he may be experiencing these events due to arrhythmia. It is unclear what his current ejection fraction maybe at this time. Patient will be evaluated by the hospitalist service for further management. He is aware of the plan and agrees. MONITORING: An order for cardiac monitoring was placed and the patient is noted to be in a sinus bradycardia at 44 beats per minute. RADIOLOGY: see below EKG: Sinus bradycardia with a first-degree AV block. Nonspecific intraventricular conduction block. T wave inversions in the inferior and ant erior leads. QTc is 448. No PVC, no PAC. DISPOSITION: admit Past Med/Surg History Medical History Alcohol abuse Asthma Bee sting allergy Chronic systolic congestive heart failure Dilated cardiomyopathy Left bundle branch block Polysubstance abuse Surgical History History of ankle surgery Family History Father Alcohol abuse Mother Suicide and self-inflicted injury by firearm Social History Smoking Status: Former smoker Tobacco Type: Cigarettes Age Started Using Tobacco: 11; Cigarettes Per Day: 15; Second Hand Exposure: Yes; Hx Alcohol Use: Yes Alcohol type: hard liquor Hx Substance Use: No Preferred Language: Thai Communication Ability: Effective Shop Superintendent Required: No Beliefs That Will Affect Care: None Current Living Situation: Significant Other current occupational status: employed current occupation: [employer] Feels Safe at Home: Yes Assistive Devices: None Allergies Allergies Allergy/AdvReac Type Severity Reaction Status Date / Time bee venom protein (honey bee) Allergy Unknown Nause,vomiting Verified 08/09/21 20:05 and dizziness Home Meds Home Medications Medication Instructions Recorded Confirmed furosemide 20 mg tablet 20 mg PO BID 08/09/21 08/09/21 Previous Rx's Medication Instructions Recorded escitalopram oxalate 20 mg tablet 20 mg PO DAILY #30 tab 01/01/21 metoprolol succinate 100 mg 100 mg PO QAM #90 tab 01/11/21 tablet,extended release 24 hr albuterol sulfate 90 mcg/actuation 2 puff INH Q6H PRN #8.5 g 02/12/21 aerosol inhaler (Ventolin HFA) fluticasone furoate 100 1 inh INHALATION DAILY #60 ea 02/12/21 mcg-vilanterol 25 mcg/dose inhalation powder (Breo Ellipta) Results & Data (ED) Vital Signs Vital Signs - 24 hr 08/09/21 19:11 08/09/21 19:17 08/09/21 19:40 Temperature Temperature Source Pulse Rate 44 L 46 L Pulse Rate [Finger] Pulse Strength [Finger] Respiratory Rate 20 20 Respiratory Effort / Characteristics Non-Labored Spontaneous Respiratory Depth Normal Blood Pressure 109/69 Blood Pressure [Right Arm] Blood Pressure Mean 82 Blood Pressure Mean [Right Arm] Blood Pressure Position Sitting Blood Pressure Position [Right Arm] Pulse Oximetry 97 97 97 Oxygen Delivery Method Room Air Room Air Room Air Oxygen Flow Rate 0 Sepsis Recent Fever Within 48 Hours No Sepsis New/Unexplained Change in Mental Status N/A Sepsis Action Taken by Nursing No Action Required 08/09/21 19:45 08/09/21 21:18 Temperature 35.6 C L Temperature Source Temporal Artery Scan Pulse Rate Pulse Rate [Finger] 50 L 52 L Pulse Strength [Finger] Normal Respiratory Rate 20 18 Respiratory Effort / Characteristics Non-Labored Spontaneous Non-Labored Spontaneous Respiratory Depth Normal Normal Blood Pressure Blood Pressure [Right Arm] 109/69 123/68 Blood Pressure Mean Blood Pressure Mean [Right Arm] 82 86 Blood Pressure Position Blood Pressure Position [Right Arm] Sitting Sitting Pulse Oximetry 97 99 Oxygen Delivery Method Room Air Room Air Oxygen Flow Rate Sepsis Recent Fever Within 48 Hours Sepsis New/Unexplained Change in Mental Status Sepsis Action Taken by Usp Medications Current Medication List: was personally reviewed by me Laboratory Data Attestation: I reviewed the patient's lab results. Result diagrams: 08/09/21 19:09 08/09/21 19:09 Lab Results 08/09/21 08/09/21 08/09/21 Range/Units 19:09 19:09 19:09 WBC 6.53 (4.8-10.8) K/uL RBC 4.26 L (4.7-6.1) M/uL Hgb 12.8 L (14.0-18.0) g/dL Hct 37.0 L (42-52) % MCV 86.9 (80-100) fL MCH 30.0 (25-34) pg MCHC 34.6 (32-36) g/dL RDW Std Deviation 39.4 (36.4-46.3) fL RDW Coeff of Connor 12.5 (11.5-14.5) % Plt Count 166 (130-400) K/uL MPV 9.4 (7.4-10.4) fL Immature Gran % (Auto) 0.2 % Neut % (Auto) 70.7 % Lymph % (Auto) 20.1 % [place] % (Auto) 7.5 % Eos % (Auto) 0.9 % Baso % (Auto) 0.6 % Neut # (Auto) 4.62 (1.4-6.5) K/uL Lymph # (Auto) 1.31 (1.2-3.4) K/uL [place] # (Auto) 0.49 (0.11-0.59) K/uL Eos # (Auto) 0.06 (0-0.5) K/uL Baso # (Auto) 0.04 (0-0.2) K/uL Immature Gran # (Auto) 0.01 (0.00-0.02) K/uL PT 11.7 (9.0-12.0) Seconds INR 1.1 (0.9-1.1) APTT 20.2 L (21.0-31.0) Seconds PTT Ratio 0.7 Sodium 136 (136-145) mmol/L Potassium 3.7 (3.5-5.1) mmol/L Chloride 101 (98-107) mmol/L Carbon Dioxide 28 (21-32) mmol/L Anion Gap 7 (3-11) BUN 19 (6-23) mg/dl Creatinine 1.04 (0.6-1.4) mg/dl Est Cr Clr Drug Dosing 107.9 ml/min Est GFR ( Amer) 102.2 ml/min Est GFR (Non-Af Amer) 88.1 ml/min BUN/Creatinine Ratio 18.3 (10-20) Glucose 128 H (70-99(Fasting)) mg/dl Calcium 9.4 (8.5-10.1) mg/dl Magnesium 2.1 (1.7-2.4) mg/dl Total Bilirubin 0.4 (0.2-1.0) mg/dl AST 28 (13-39) U/L ALT 44 (7-52) U/L Alkaline Phosphatase 55 (34-104) U/L Troponin I High Sens 4.8 (0-20) pg/ml Total Protein 6.8 (6.0-8.3) gm/dl Albumin 4.5 (3.4-5.0) gm/dl Globulin 2.3 L (2.5-4.0) gm/dl Albumin/Globulin Ratio 2.0 (0.9-2) Ethyl Alcohol mg/dL (<10.0) mg/dl SARS-CoV-2 (PCR) (Negative) Influenza Type A (PCR) (Neg) Influenza Type B (PCR) (Neg) RSV (RT-PCR) (Neg) 08/09/21 08/09/21 08/09/21 Range/Units 19:09 19:15 21:11 WBC (4.8-10.8) K/uL RBC (4.7-6.1) M/uL Hgb (14.0-18.0) g/dL Hct (42-52) % MCV (80-100) fL MCH (25-34) pg MCHC (32-36) g/dL RDW Std Deviation (36.4-46.3) fL RDW Coeff of Connor (11.5-14.5) % Plt Count (130-400) K/uL MPV (7.4-10.4) fL Immature Gran % (Auto) % Neut % (Auto) % Lymph % (Auto) % [place] % (Auto) % Eos % (Auto) % Baso % (Auto) % Neut # (Auto) (1.4-6.5) K/uL Lymph # (Auto) (1.2-3.4) K/uL [place] # (Auto) (0.11-0.59) K/uL Eos # (Auto) (0-0.5) K/uL Baso # (Auto) (0-0.2) K/uL Immature Gran # (Auto) (0.00-0.02) K/uL PT (9.0-12.0) Seconds INR (0.9-1.1) APTT (21.0-31.0) Seconds PTT Ratio Sodium (136-145) mmol/L Potassium (3.5-5.1) mmol/L Chloride (98-107) mmol/L Carbon Dioxide (21-32) mmol/L Anion Gap (3-11) BUN (6-23) mg/dl Creatinine (0.6-1.4) mg/dl Est Cr Clr Drug Dosing ml/min Est GFR ( Amer) ml/min Est GFR (Non-Af Amer) ml/min BUN/Creatinine Ratio (10-20) Glucose (70-99(Fasting)) mg/dl Calcium (8.5-10.1) mg/dl Magnesium (1.7-2.4) mg/dl Total Bilirubin (0.2-1.0) mg/dl AST (13-39) U/L ALT (7-52) U/L Alkaline Phosphatase (34-104) U/L Troponin I High Sens 5.1 (0-20) pg/ml Total Protein (6.0-8.3) gm/dl Albumin (3.4-5.0) gm/dl Globulin (2.5-4.0) gm/dl Albumin/Globulin Ratio (0.9-2) Ethyl Alcohol mg/dL < 10.0 (<10.0) mg/dl SARS-CoV-2 (PCR) NEGATIVE (Negative) Influenza Type A (PCR) Negative (Neg) Influenza Type B (PCR) Negative (Neg) RSV (RT-PCR) Negative (Neg) Imaging Data Radiologist's Impression: Chest X-Ray 08/09/21 19:12 XR chest 1V portable HISTORY: Dyspnea COMPARISON: Chest 08/23/2020. FINDINGS: The lungs are clear. Cardiac silhouette is normal in size. No pleural effusions. No pneumothorax. IMPRESSION: No acute process. ACT 112: Negative or not required by law. Electronically signed by: Vik Edmonds M.D. 08/09/2021 7:[address] 08/09/21 19:[address] DOSE: 537.48 mGy.cm HISTORY: seizure like episodes TECHNIQUE: Multiaxial CT images of the head were performed without the use of intravenous contrast. Automated exposure control was utilized for this study. A dose lowering technique was utilized adhering to the principles of ALARA. Comparison: None. Findings: The paranasal sinuses and mastoid air cells are clear. The calvarium and skull base are intact. The ventricles and sulci are within normal limits. There is no mass, hematoma, midline shift, or acute infarct. Impression: No acute intracranial abnormality. ACT 112: Negative or not required by law. Electronically signed by: Vik Edmonds M.D. 08/09/2021 7:40 PM Blood Pressure Blood Pressure Findings: Normal blood pressure Blood Pressure Disposition: did not require urgent referral Discharge Plan Visit Data Chief Complaint: Cardiac Assessment Stated Complaint: ILLNESS, AMS ED Provider: Geovanna Saldaña Discharge Problem: Near syncope, Dilated cardiomyopathy, Bradycardia Patient Disposition: Admitted As Inpatient Forms Stand Alone Forms: [facility] Prescriptions Prescriptions: No Action escitalopram oxalate 20 mg tablet 20 mg PO DAILY Qty: 30 RF: 4 metoprolol succinate 100 mg tablet extended release 24 hr 100 mg PO QAM Qty: 90 RF: 3 albuterol sulfate [Ventolin HFA] 90 mcg/actuation HFA aerosol inhaler 2 puff INH Q6H PRN (Reason: Shortness Of Breath Or Wheezing) Qty: 8.5 RF: 4 Breo Ellipta 100-25 mcg/dose blister with device 1 inh inhalation DAILY Qty: 60 RF: 2 furosemide 20 mg tablet 20 mg PO BID RF: 0 Referrals Referrals: Felipe Salter CRNP [Primary Care Provider] -
[2021-08-09] MEDS ORDERED: ACETAMINOPHEN 325 MG TAB PO PRN (22:21)
[2021-08-09] MEDS ORDERED: GLUCOSE 10 TABS/TUBE PO PRN (22:21)
[2021-08-09] MEDS ORDERED: GLUCOSE 40% GEL 15 GM TUBE PO PRN (22:21)
[2021-08-09] MEDS ORDERED: DEXTROSE 50% 50 ML SYRINGE IV PRN (22:21)
[2021-08-09] MEDS ORDERED: ONDANSETRON INJ 2 MG/ML 2 ML VIAL IV PRN (22:21)
[2021-08-09] MEDS ORDERED: CARBOHYDRATES FOR HYPOGLYCEMIA PO PRN (22:21)
[2021-08-09] MEDS ORDERED: ALBUTEROL HFA 8 GM INHALER INH PRN (22:21)
[2021-08-09] MEDS ORDERED: GLUCAGON FOR INJ 1 MG VIAL SQ PRN (22:21)
[2021-08-10 06:13] LABS: Basophils # (auto) 0.02 K/uL (0-0.2); Basophils % (auto) 0.5 %; Eosinophils # (auto) 0.06 K/uL (0-0.5); Eosinophils % (auto) 1.6 %; Hematocrit (blood only) 36.8 % (42-52); Hemoglobin 12.7 g/dL (14.0-18.0); Immature Granulocytes # (auto) 0.01 K/uL (0.00-0.02); Immature Granulocytes % (auto) 0.3 %; Lymphocytes # (auto) 1.05 K/uL (1.2-3.4); Lymphocytes % (auto) 27.9 %; Mean Corpuscular Hemoglobin 30.2 pg (25-34); Mean Corpuscular Hgb Conc 34.5 g/dL (32-36); Mean Corpuscular Volume 87.4 fL (80-100); Mean Platelet Volume 9.4 fL (7.4-10.4); Monocytes % (auto) 10.6 %; Neutrophils # (auto) 2.23 K/uL (1.4-6.5); Neutrophils % (auto) 59.1 %; Platelet Count 172 K/uL (130-400); RDW Coefficient of Variation 12.8 % (11.5-14.5); RDW Standard Deviation 41.3 fL (36.4-46.3); Red Blood Count 4.21 M/uL (4.7-6.1); White Blood Count 3.77 K/uL (4.8-10.8)
[2021-08-10 06:35] LABS: Albumin Level 4.3 gm/dl (3.4-5.0); BUN Creatinine Ratio 17.4 (10-20); Bilirubin,Total 0.6 mg/dl (0.2-1.0); Calcium 9.5 mg/dl (8.5-10.1); Creatinine Clr Calc Pharmacy 127.8 ml/min; Globulin 2.2 gm/dl (2.5-4.0); Magnesium 2.1 mg/dl (1.7-2.4); Potassium 4.3 mmol/L (3.5-5.1); Total Protein 6.5 gm/dl (6.0-8.3)
[2021-08-10] MEDS: INSULIN ASPART PER UNIT SC SCH ×2 (08:25→13:28)
[2021-08-10] MEDS ORDERED: METOPROLOL SUCC 50MG EXT REL TAB PO SCH (09:00)
[2021-08-10] MEDS ORDERED: FUROSEMIDE 20 MG TAB PO SCH (09:00)
[2021-08-10] MEDS ORDERED: FLUTICASONE/VILANTEROL 100/25MCG 14 PUFFS/INHALER INH SCH (09:00)
[2021-08-10] MEDS ORDERED: METOPROLOL SUCC 25MG EXT REL TAB PO SCH (09:00)
[2021-08-10] MEDS ORDERED: ESCITALOPRAM OXALATE 20 MG TAB PO SCH (09:00)
--- NOTE | 2021-08-10 13:49 | Electrocardiogram Report ---
Test Reason : Blood Pressure : / mmHG Vent. Rate : 046 BPM Atrial Rate : 046 BPM P-R Int : 222 ms QRS Dur : 130 ms QT Int : 512 ms P-R-T Axes : 055 059 -46 degrees QTc Int : 448 ms Sinus bradycardia with 1st degree A-V block Non-specific intra-ventricular conduction block T wave abnormality, consider inferior ischemia T wave abnormality, consider anterior ischemia Abnormal ECG When compared with ECG of 08-DEC-2019 08:13, [place] interval has increased Vent. rate has decreased BY 22 BPM Non-specific intra-ventricular conduction block has replaced Left bundle branch block T-wave inversion in multiple leads now present Confirmed by Isael Espinal ([id number]) on 08/10/2021 1:48:22 PM Referred By: REFERRED SELF Confirmed By:Isael Espinal
--- NOTE | 2021-08-10 15:43 | Discharge Summary ---
Date of Service August 10, 2021 Admission HPI Per Admitting Provider The patient is a 40-year-old male with a past medical history including dilated cardiomyopathy with improved ejection fraction from 15-20 up to 55-60%, chronic systolic CHF, history of alcohol abuse with continued sobriety, tobacco abuse, left bundle branch block and asthma. Upon review of patient's symptoms as noted above, and previous episodes, they tend to occur when he has not been eating well, such as today when he skipped breakfast. He reports his symptoms today were improved after eating a chocolate bar, and usually improve with some type of oral intake. Symptoms may occur with or without activity, and usually are preceded by a sensation of warmth and blood rushing to his head. Principal Diagnosis 1. Syncopal episode--likely combination orthostatic hypotension + vasovagal response Discharge Exam GENERAL: 40 yo Well-developed, well-nourished WM. NAD. LUNGS: Clear to auscultation bilaterally. No accessory muscle use. No W/R/R. CARDIOVASCULAR: Regular rate and rhythm. No M/G/R. No JVD. ABDOMEN: Soft, non-tender and non-distended. BS normoactive x 4 quad. EXTREMITIES: No edema. Non-tender. Peripheral pulses +2/4. NEUROLOGIC: A&O x3. PSYCHIATRIC: Cooperative. Appropriate mood and affect. SKIN: Warm, dry, intact. No rashes or lesions. Discharge Data Allergies Allergy/AdvReac Type Severity Reaction Status Date / Time bee venom protein (honey bee) Allergy Unknown Nause,vomiting Verified 08/09/21 20:05 and dizziness Consultations 08/09/21 20:39 ED Decision to Admit Stat Ordered Studies Chest X-Ray 08/09/21 19:12 XR chest 1V portable HISTORY: Dyspnea COMPARISON: Chest 08/23/2020. FINDINGS: The lungs are clear. Cardiac silhouette is normal in size. No pleural effusions. No pneumothorax. IMPRESSION: No acute process. ACT 112: Negative or not required by law. Electronically signed by: Vik Edmonds M.D. 08/09/2021 7:[address] 08/09/21 19:[address] DOSE: 537.48 mGy.cm HISTORY: seizure like episodes TECHNIQUE: Multiaxial CT images of the head were performed without the use of intravenous contrast. Automated exposure control was utilized for this study. A dose lowering technique was utilized adhering to the principles of ALARA. Comparison: None. Findings: The paranasal sinuses and mastoid air cells are clear. The calvarium and skull base are intact. The ventricles and sulci are within normal limits. There is no mass, hematoma, midline shift, or acute infarct. Impression: No acute intracranial abnormality. ACT 112: Negative or not required by law. Electronically signed by: Vik Edmonds M.D. 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 echo noted improved EF to 55-60% -placed in observation to monitored bed overnight, no arrhythmias observed -no further syncopal events -orthostatic VS checked, technically negative (did not have acute 20 mmhg drop in systolic BP from lying to standing) but did drop from 125 to 108-- 17mmhg dr guzman -echo ordered and pending -suspect combination of marginal orthostatic hypotension + vasovagal episode -will arrange for 30-day heart/event monitor (2) Bradycardia: Bradycardia/chronic systolic CHF, dilated cardiomyopathy, LBBB -May need to have beta-anoop decreased, presently on metoprolol succinate 100 mg daily in a.m. -Decrease metoprolol succinate to 75 mg every morning, and get close follow-up with cardiology -His beta-anoop will also predispose him to hypoglycemia unawareness, which makes it more important to be improved about his diet (3) Tobacco dependence: -Cessation counseling provided (4) Chronic systolic congestive heart failure: -follows with HF clinic (Inocente Moore PA-C) -Last seen in Feb 2021, due to f/u, believes he missed it, instructed him to call and reschedule -last echo EF 55-60% -Entresto too expensive, ran out about a month ago -Continue furosemide PRN weight gain/swelling/dyspnea (5) Dilated cardiomyopathy: -likely secondary to EtOH use, has stopped drinking and with that in addit ion to medical management, EF has improved -continue to f/u with HF clinic (6) Left bundle branch block: See above (7) Asthma: Continue inhalers (8) History of alcohol abuse: Continue to encourage sobriety At this time, pt is medically and hemodynamically stable for discharge. Echo is still pending but d/w cardiology, they do not feel that this should hold up his discharge as his troponins have been negative and if there is a "new" wma noted on echo it is likely not actually acutely new. Will arrange for 30-day event monitor to be put on by cardiology in the office and he can follow up with them to review results. Pt instructed not to drive (he states that he doesn't drive due to prior DUIs) until results of the event monitor are reviewed and it is known that he is not having any cardiac arrhythmias that are dangerous and could cause further syncopal episodes possibly while driving or operating other machinery. He verbalized understanding. He will f/u with his PCP as scheduled on 08/14. Above plan of care has been d/w Dr. Lin who has also seen and evaluated this patient and is in agreement with aforementioned. Total Time Total Time Spent Total Time Spent (In Minutes): <30 minutes Discharge Plan Discharge Items Patient Disposition: Home - Self-Care Reason For Visit: NEAR SYNCOPE Discharge Diagnosis: passed out Activity: Resume your previous activity Non-emergency contact: Primary Care Provider, Specialist and Production Control Planner Call non-emergency contact if: you have any medication questions and your symptoms worsen Follow-up/Referrals: Felipe Salter CRNP [Primary Care Provider] - Trevor Beebe MD [Physician] - (1 week) Nevin Moore PA-C [Physician Cyber Operator] - (1-2 weeks) Diet: Heart Healthy Addtl Attending Provider Instructions: You were hospitalized overnight due to passing out. This is likely a combination of some mild dehydration in addition to your body overreacting to a certain trigger. You had serial tests to check your heart and make sure that you did not experience any injury or damage to your heart muscle. You also underwent an ultrasound of your heart, this will be reviewed by the career and guidance counselor. A formal reading is not available at this time, but will contact you with the result. No obvious irregular heart rhythms were observed during your stay. Because you do carry a history of a weakened heart, it is felt that you would benefit from wearing a heart monitor for the next 30 days. A script has been written and faxed to the heart doctor's office. They will be in contact with you on Wednesday, 08/12, to discuss putting the heart monitor on. They will notify you when you have to return to have it removed and will schedule a follow up with cardiology to discuss the results. It is important that you also contact Nevin Moore PA-C in the heart failure clinic, since you missed your recent appointment, to follow up with her. Your metoprolol that you take at home has been reduced from 100 mg to 75 mg. Please note this change and take the new dose as directed. A new prescription has been sent to your pharmacy. You have been advised not to drive for the time being until the results of the heart monitor have been reviewed and can ensure that there is no heart rhythm disturbance that could occur while operating a vehicle or other machinery. We recommend following up with your family doctor as scheduled this coming week. If you have any questions or concerns, please call the non-emergency number that is listed on your discharge paperwork. In the event of a medical emergency, call 911. Pending Studies at Discharge: No Stand-Alone Forms: My [employer], Smoking Cessation Medications and DC Order Prescriptions: New metoprolol succinate 25 mg tablet extended release 24 hr 75 mg PO DAILY Qty: 90 RF: 0 Continued escitalopram oxalate 20 mg tablet 20 mg PO DAILY Qty: 30 RF: 4 albuterol sulfate [Ventolin HFA] 90 mcg/actuation HFA aerosol inhaler 2 puff INH Q6H PRN (Reason: Shortness Of Breath Or Wheezing) Qty: 8.5 RF: 4 Breo Ellipta 100-25 mcg/dose blister with device 1 inh inhalation DAILY Qty: 60 RF: 2 furosemide 20 mg tablet 20 mg PO BID RF: 0 Discontinued metoprolol succinate 100 mg tablet extended release 24 hr 100 mg PO QAM Qty: 90 RF: 3 Discharge Orders: Discharge Order (Routine); Ordered 08/10/21 Ordered By: Kailyn Aguero Admission Data Admit Date/Time: 08/09/21 21:36 Attending Provider: Ang Lin Admit Provider: Joshua Leo Primary Care Provider: Felipe Salter Other Providers: Joshua Leo Other Interventions: Discharge Summary Assessment (RN) Last Done: 08/10/21 16:44 Supervising Physician Co-Signing Physician Notes I personally examined the patient and verified all mckinney points of history and exam, discussed case, and agree with decision making with Parker Aguero PAC feels up to going home cristal noted nad heent nc at mmm breathing unlabored no accessory muscles good effort syncope - stable for home. outpt ambulatory rhythm monitoring. CHF clinic follow up (?possibly able to reduce lasix or metoprolol but will want him followed closely) otherwise as above Coding Level of Care Code 49627 OBS Care - Discharge Diagnoses Near syncope R55 Bradycardia R00.1 Tobacco dependence F17.200 Chronic systolic congestive heart failure I50.22 Dilated cardiomyopathy I42.0 Left bundle branch block I44.7 Asthma J45.909 History of alcohol abuse F10.11
--- NOTE | 2021-08-10 17:06 | XCELERA ---
[id number]
[2021-08-11 08:03] LABS: Estimated Average Glucose 126 mg/dl
== END 2021-08-10 17:12 | disposition home or self-care (01) ==
LOC: ED 18:53 → 2N 18:53 → SUATTDRO 21:36 → 2N 22:04